=== PATIENT | male | born 1940 | race Caucasian/White ===

== ENCOUNTER 2016-10-22 05:36 | Observation (INO) | payer BC, OTHER ==
[2016-10-10 15:21] VITALS: BMI 32.0
--- NOTE | 2016-10-10 15:42 | PAT Medication Instructions ---
Service Date Oct 10, 2016. Current Home Medication List Albuterol (Proair Hfa), 2 PUFFS INH Q4H PRN for SOB/Wheezing Amlodipine Besylate (Amlodipine Besylate), 5 MG PO BID Aspirin (Aspirin Tab-Chewable *), 81 MG PO HS Atorvastatin (Atorvastatin Calcium), 10 MG PO QAM B-Complex W/ Folic Acid (Super B Complex Maxi), 1 TAB PO QAM Clopidogrel (Plavix), 75 MG PO QPM Enalapril Maleate (Enalapril Maleate), 2.5 MG PO DAILY Gabapentin (Neurontin), 100 MG PO HS Insulin Glargine (Lantus Solostar Pen), 35 UNITS SC HS Isosorbide Mononitrate Ext Rel (Imdur Ext Rel), 60 MG PO QAM Metformin Hcl (Glucophage), 1,000 MG PO BIDM Metoprolol Tartrate (Lopressor) (Lopressor), 150 MG PO BID Nitroglycerin (Nitro-Dur 0.8 Mg/Hr), 1 PATCH TD 12-14HRS DAILY Nitroglycerin (Nitrostat), 0.4 MG SL PRN PRN for Chest Pain Luning-3 Fatty Acids (Fish Oil), 1,000 MG PO QAM Pantoprazole (Protonix), 40 MG PO QAM Probiotic Product (Probiotic), 1 CAP PO QPM Medication Instructions For Your Scheduled Surgery Clopidogrel (Plavix), 75 MG PO QPM (check with surgeon and prescribing physician for instructions) Aspirin (Aspirin Tab-Chewable *), 81 MG PO HS (check with surgeon and prescribing physician for instructions) Nitroglycerin (Nitro-Dur 0.8 Mg/Hr), 1 PATCH TD 12-14HRS DAILY (continue as directed/usual) Nitroglycerin (Nitrostat), 0.4 MG SL PRN PRN for Chest Pain (if needed) - Hold the following medications 2 weeks prior to surgery: Luning-3 Fatty Acids (Fish Oil), 1,000 MG PO QAM - Hold the following medications 48 hours prior to surgery: Metformin Hcl (Glucophage), 1,000 MG PO BID - Hold the following medications the morning of surgery: Enalapril Maleate (Enalapril Maleate), 2.5 MG PO DAILY B-Complex W/ Folic Acid (Super B Complex Maxi), 1 TAB PO QAM - Take the following medications the morning of surgery with a sip of water: Pantoprazole (Protonix), 40 MG PO QAM Metoprolol Tartrate (Lopressor) (Lopressor), 150 MG PO BID Isosorbide Mononitrate Ext Rel (Imdur Ext Rel), 60 MG PO QAM Atorvastatin (Atorvastatin Calcium), 10 MG PO QAM Amlodipine Besylate (Amlodipine Besylate), 5 MG PO BID Albuterol (Proair Hfa), 2 PUFFS INH Q4H PRN for SOB/Wheezing (bring with you to hospital on day of surgery) - Take the following medications as scheduled the night before surgery: Probiotic Product (Probiotic), 1 CAP PO QPM Metoprolol Tartrate (Lopressor) (Lopressor), 150 MG PO BID Insulin Glargine (Lantus Solostar Pen), 35 UNITS SC HS Gabapentin (Neurontin), 100 MG PO HS Amlodipine Besylate (Amlodipine Besylate), 5 MG PO BID Albuterol (Proair Hfa), 2 PUFFS INH Q4H PRN for SOB/Wheezing If you have any questions please call us at [phone] or [phone] ( Alexia) or [phone]
[2016-10-22] VITALS (13 sets, daily range): BP systolic 94–135; BP diastolic 47–69; PULSE 58–69; TEMP 36.4–36.8; O2SAT 90–96; Ht 160 cm; Wt 82.7 kg
[~2016-10-22] VITALS: Ht 160 cm; Wt 82.7 kg
[~2016-10-22 05:36] MED LIST: ALBU1AER9 INH; ASPCH81 PO; B-CO-25 PO; CLOP1TAB15 PO; GABA-112 PO; INSUINJ4 SC; ISOS60TA25 PO; LPT10 PO; METF-384 PO; METO100T14 PO; MISCCAP80 PO; NRV5 PO; NTRGSL4 SL; OMEGCAP2 PO; PANT40TA PO; VST5 PO; [UNRECOGNIZED DRUG - CODE] TD
[2016-10-22] MEDS ORDERED: LACTATED RINGER'S 1000ML 1,000 ML IV SCH (06:00)
[2016-10-22] MEDS ORDERED: ONDANSETRON INJ 2 MG/ML 2 ML VIAL ONE (06:34)
[2016-10-22] MEDS ORDERED: LIDOCAINE HCL 2% 2 ML VIAL (20MG/ML) ONE (06:34)
[2016-10-22] MEDS ORDERED: GLYCOPYRROLATE INJ 0.2 MG/ML VIAL ONE (06:34)
[2016-10-22] MEDS ORDERED: DEXAMETHASONE SOD INJ 4 MG/ML VIAL ONE (06:34)
[2016-10-22] MEDS ORDERED: NEOSTIGMINE METHYLSULFATE 5 MG/5 ML SYR ONE (06:34)
[2016-10-22] MEDS ORDERED: PROPOFOL IV EMULSION 10 MG/ML 20 ML VIAL IV ONE (06:34)
--- NOTE | 2016-10-22 06:34 | History & Physical Bridge Note ---
H&P Re-Evaluation Bridge Note: I have examined the patient, reviewed the History & Physical and in the interval since the performance of the History & Physical I have noted the following changes of clinical significance: No changes noted family at bedside, stopped plavix 5 days ago
[2016-10-22] MEDS ORDERED: FENTANYL CITRATE INJ 50 MCG/1 ML 2 ML VIAL ONE ×2 (06:35→09:15)
[2016-10-22] MEDS ORDERED: MIDAZOLAM HCL 1 MG/ML 2ML VIAL ONE (06:35)
[2016-10-22] MEDS ORDERED: CEFOXITIN SOD 1 GM VIAL ONE (07:26)
[2016-10-22] MEDS ORDERED: EpHEDrine SULFATE 50MG/5ML SYR ONE (07:39)
[2016-10-22] MEDS ORDERED: KETOROLAC TROMETHAMINE 30 MG/ML VIAL ONE (08:37)
[2016-10-22] MEDS ORDERED: CONRAY 60% 50 ML VIAL INSTIL ONE (08:39)
[2016-10-22] MEDS ORDERED: LIDOCAINE/EPINEPHRINE 1% 20 ML VIAL INJ ONE (08:39)
--- NOTE | 2016-10-22 08:41 | DIAGNOSTIC IMAGING REPORT ---
CHOLANGIOGRAM O.R. CLINICAL HISTORY: Gallstones. Cholecystectomy. COMPARISON STUDY: Biliary ultrasound dated 10/01/2016 FLUOROSCOPY TIME: 3 seconds. FINDINGS: 3 intraoperative fluoroscopic spot images are provided for interpretation. No common bile duct filling defects are visualized. There is free flow into the duodenum. IMPRESSION: No evidence of retained calculi. Electronically signed by: Jesus Figueroa M.D. 10/22/2016 8:39 AM Dictated Date/Time: 10/22/2016 8:38 AM
--- NOTE | 2016-10-22 08:56 | [facility] Post Operative Brief Note ---
Immediate Operative Summary Operative Date Oct 22, 2016. Pre-Operative Diagnosis Cholelithiasis Post-Operative Diagnosis Cholelithiasis macronodular liver, likely cirrhosis Procedure(s) Performed Laparoscopic Cholecystectomy with Cholangiogram with trucut biopsy Surgeon Dr. Alex Saleem Automotive Glass Technician Surgeon(s) none Estimated Blood Loss 10 ml Findings as preop and macronodular liver(pictures taken) Specimens Permanent A. Gallbladder B. Liver Biopsy Right Lower Liver Microbiology 1. Gallbladder Contents Drains 19 lacey per stab
[2016-10-22] MEDS ORDERED: EpHEDrine SULFATE INJ 50 MG/ML AMP IV PRN (09:00)
[2016-10-22] MEDS ORDERED: NITROGLYCERIN 0.4 MG SL PER TAB CHARGE SL PRN (09:00)
[2016-10-22] MEDS ORDERED: ATROPINE SULFATE 0.1 MG/ML 5ML SYR IV PRN (09:00)
[2016-10-22] MEDS ORDERED: GLUCOSE 40% GEL 15 GM TUBE PO PRN (09:00)
[2016-10-22] MEDS ORDERED: ALBUTEROL HFA 8 GM INHALER INH PRN (09:00)
[2016-10-22] MEDS ORDERED: LABETALOL HCL IV 5 MG/ML 20ML IV PRN (09:00)
[2016-10-22] MEDS ORDERED: MEPERIDINE HCL 25 MG/ML CARP IV PRN (09:00)
[2016-10-22] MEDS ORDERED: FENTANYL CITRATE INJ 50 MCG/1 ML 2 ML VIAL IV PRN (09:00)
[2016-10-22] MEDS ORDERED: HYDROmorphone INJ 1 MG/ML SYR IV PRN (09:00)
[2016-10-22] MEDS ORDERED: GLUCOSE 10 TABS/TUBE PO PRN (09:00)
[2016-10-22] MEDS ORDERED: GLUCAGON FOR INJ 1 MG VIAL SQ PRN (09:00)
[2016-10-22] MEDS ORDERED: OXYCODONE/ACETAMINOPHEN 5-325 TAB PO PRN (09:00)
[2016-10-22] MEDS ORDERED: DEXTROSE 50% 50 ML SYR IV PRN (09:00)
[2016-10-22] MEDS ORDERED: ONDANSETRON INJ 2 MG/ML 2 ML VIAL IV PRN ×2 (09:00)
--- NOTE | 2016-10-22 10:10 | Medical Student: [facility] ---
Immediate Operative Summary Operative Date Oct 22, 2016. Pre-Operative Diagnosis Cholelithiasis Post-Operative Diagnosis Cholelithiasis, cirrhosis of the liver Procedure(s) Performed Laparoscopic cholecystectomy Liver biopsy Surgeon Dr. Saleem Nutrition Specialist Surgeon(s) None Estimated Blood Loss 10 mL Findings Cirrhotic appearing liver, many gallstones of varying sizes in the gall bladder , purulent fluid within gallbladder. Otherwise normal abdominal anatomy was seen. Specimens Gallbladder Liver biopsy Complication(s) puncture of gallbladder and spillage of a portion of gallstones Disposition Recovery Room / PACU
--- NOTE | 2016-10-22 10:44 | OPERATIVE REPORT ---
DATE OF OPERATION: 10/22/2016 PREOPERATIVE DIAGNOSIS: Chronic cholecystitis, cholelithiasis. POSTOPERATIVE DIAGNOSIS: Same with macronodular liver likely cirrhosis. PROCEDURE: Laparoscopic cholecystectomy, intraoperative cholangiogram, Marcelo-Cut biopsy right lobe of the liver. SURGEON: Dr. Saleem. OPERATION AND FINDINGS: SUMMARY: The patient was brought into the operating room theater. The abdomen was prepped with Betadine solution and properly draped. We made a small incision supraumbilically enough to place a Veress needle followed by CO2 followed by 5 mm trocar. Point of entry inspected and no injury identified. We held the intra-abdominal pressure due to his cardiac problem between 10 and 11 mmHg. This was sufficient to elevate his abdominal wall enough that we could create a pneumoperitoneum to proceed with the surgery. Under direct visualization, I placed a 5 mm epigastric with preemptive local analgesia 1% Xylocaine with epinephrine and placed 2 subcostal ports in a similar fashion. We identified we could see that the left lobe of the liver was quite macronodular. I took an x-ray. The omentum was draped over the right lobe of the liver. We placed the patient in reverse Trendelenburg position and rotated to the left. At this point, we elevated the omentum from the liver. I was able to identify the gallbladder was thick walled but not acutely inflamed. We did place it under traction elevating it up. It was quite difficult due to the structure of the liver to get exposure initially down the vicki hepatis which we did eventually just migrating done shortly choking up on the gallbladder. Once we got into the point of what I felt was the triangle of Calot area or the neck of the gallbladder we dissected out mostly bluntly and we were able to use the sucker and identify the gallbladder going towards the cystic duct area. We were able to identify the cystic duct and I used a right angle clamp to get around it as it came out of the gallbladder. We clipped it proximally. A #4 ureteral catheter transversed the abdominal wall and an Angiocath was positioned in the cystic duct. Serial x-rays were taken which showed free flow into the duodenum. No obstruction. At this point, we took the cholangiocath out and clipped the cystic duct twice. To make it more securely I choked up on it a little bit more and placed another clip which was secure. The gallbladder was then removed in the antegrade fashion, first identifying the cystic artery and doubly clipped it proximally. We tried to leave as much of the posterior peritoneum intact to avoid getting into the liver which as stated appeared to be micronodular and mostly cirrhotic. I did not see any true evidence of portal hypertension. Leaving the posterior aspect of the liver we were able then to maneuver the gallbladder in an antegrade fashion. Small opening in the gallbladder. Some stones came out that we would retrieve. At this point, once the gallbladder was freed completely from the liver bed, it was placed in an Endopouch and actually I converted the 5 mm to an 11 mm trocar once we noticed that the stones come out and I required a larger grasper to retrieve them. The gallbladder was placed in an Endopouch and taken out intact through the epigastric port. Cultures were taken. The subhepatic area was then checked for hemostasis and appeared satisfactory. We cauterized some minor bleeding along the gallbladder fossa, retrieved all the stones. I elected to drain this with a Rachid drain. Prior to doing that, I felt we needed to get a Marcelo-Cut biopsy of the right lobar of the liver which we did without any problem and had a good specimen. The area of puncture the right lobe was cauterized. No bleeding appreciated. A 19 Rachid drain was then brought up on the field and placed subhepatically and taken out lateral to the 5 mm trocar site, attached to skin edges with 2-0 silk. Prior to taking out the individual trocars, I placed the camera in subcostal port to visualize the umbilical area. There were no adhesions to the anterior abdominal wall there. All the individual trocars removed, last the umbilical trocar. Fascial stitch 0 Vicryl was used for the epigastric area fascial [id number], the other ones were Monocryl. Steri-Strips applied. The procedure was tolerated well by the patient. Estimated blood loss approximately 10 mL. The patient was taken to recovery room in good condition. I attest to the content of the Intraoperative Record and any orders documented therein. Any exceptio ns are noted below.
--- NOTE | 2016-10-22 11:48 | Anesthesiology Progress Note ---
Anesthesia Post Op Note Date & Time Oct 22, 2016 at 11:48 Vital Signs Pain Intensity: 3 Vital Signs Past 12 Hours Date Time Temp Pulse Resp B/P Pulse Ox O2 Delivery O2 Flow Rate FiO2 10/22/16 11:22 36.5 61 16 103/47 90 Nasal Cannula 2.5 10/22/16 10:30 61 16 101/53 10/22/16 09:55 62 15 107/48 97 Nasal Cannula 2 10/22/16 09:45 36.9 60 15 105/47 95 Nasal Cannula 2 10/22/16 09:35 60 14 108/58 93 Nasal Cannula 2 10/22/16 09:25 58 12 123/62 97 Mask 10 10/22/16 09:15 61 21 127/73 96 Mask 10 10/22/16 09:07 36.1 64 20 131/68 95 Mask 10 10/22/16 06:03 36.4 58 20 135/69 93 Room Air Notes Mental Status: alert / awake / arousable, participated in evaluation Pt Amnestic to Procedure: Yes Nausea / Vomiting: adequately controlled Pain: adequately controlled Airway Patency, RR, SpO2: stable & adequate BP & HR: stable & adequate Hydration State: stable & adequate Anesthetic Complications: no major complications apparent
[2016-10-22] MEDS: SODIUM CHLORIDE 0.9% 1000ML 1,000 ML IV SCH ×2 (11:54→21:24)
[2016-10-22] MEDS: MoRPHine SULFATE 2 MG/ML CARP IV PRN ×2 (11:56→13:55)
[2016-10-22] MEDS: INSULIN ASPART 100 UNITS/ML 3 ML PEN SC SCH ×3 (14:06→21:14)
--- NOTE | 2016-10-22 15:04 | Cardiology Consultation ---
Cardiology Consultation Date of Consultation: Oct 22, 2016 History of Present Illness Lewis Hernandez is a 76 year old male seenc in cardiology consultation per the request of Dr Saleem for post operative cardiology care. The patient recently been seen by Luis PEACOCK of our practice in preoperative cardiology consultation on 10/11/16. He has a complex history of coronary heart disease as delineated below with a long-standing history of [place] cardiovascular Society class III angina for which he has been on medication therapy. He had a preoperative pharmacologic nuclear stress earlier this month which revealed a fixed anterior wall motion abnormality with no superimposed ischemia and normal LVEF. The patient has a history of chronic cholecystitis, cholelithiasis for which she underwent elective laparoscopic cholecystectomy with intraoperative cholangiogram today. Past imaging studies are also concerning for possible fatty infiltration of the liver. Due to concerns of possible underlying cirrhosis, he underwent a liver biopsy today the same setting. The patient was seen postoperatively in room 358-1. His daughter was accompanying him at the time and he was resting comfortably his pain was adequately controlled. He denied any chest discomfort or shortness of breath. History PAST MEDICAL HISTORY: 1. Multivessel atherosclerotic coronary artery disease. 2. November 2005 cardiac catheterization demonstrating multivessel coronary artery disease with severely calcified coronaries, serial LAD stenoses s/p angioplasty x 3, 90% large first OM stenosis, 50% proximal LPL stenosis, and a total 100% mid right coronary occlusion with the RPL and PDA branches filling via [id number] collaterals. LVEF was 55% without MR or aortic gradient. 3. Catheterization complicated by balloon rupture and associated ST segment elevation. 4. Hypertension 5. Hyperlipidemia 6. History of tobacco abuse. 7. GERD. 8. Gout 9. Rosacea. PAST SURGICAL HISTORY: 1. Tonsillectomy 2. Dental surgery 3. Bilateral hip replacement 4. Laparoscopic cholecystectomy with liver biopsy today 10/22/16 FAMILY HISTORY: Father passed with myocardial infarction in his 80s. Mother had a stroke and had dementia SOCIAL HISTORY: He is a reformed smoker having smoked one pack per day for 20 years. He is to daughters, Mis and Rosi. He has been since 2011 and lives alone. Review Of Systems See above for pertinent positives & negatives. A total of 10 systems reviewed and were otherwise negative. Allergies Coded Allergies: Amoxicillin (Verified Allergy, Severe, swelling of lips and throat, shortness of breath, 10/22/16) Sulfa Antibiotics (Verified Allergy, Intermediate, HIVES, 10/22/16) Adhesives (Verified Allergy, Unknown, rash/skin irritation, 10/22/16) Medications Reported Home Medications Medications Dose Route/Sig Max Daily Dose Days Date Category Dose Instructions Neurontin (Gabapentin) 100 Mg Cap 100 Mg PO HS 10/01/16 Reported Super B Complex Maxi (B-Complex W/ Folic Acid) 1 Tab Tab 1 Tab PO QAM 10/01/16 Reported Probiotic (Probiotic Product) 1 Cap Cap 1 Cap PO QPM 10/01/16 Reported Atorvastatin Calcium (Atorvastatin) 10 Mg Tab 10 Mg PO QAM 30 09/22/15 Rx Enalapril Maleate 5 Mg Tab 2.5 Mg PO DAILY 30 09/22/15 Rx Amlodipine Besylate 5 Mg Tab 5 Mg PO BID 60 09/22/15 Rx Imdur Ext Rel (Isosorbide Mononitrate) 60 Mg Ertab 60 Mg PO QAM 09/20/15 Reported Nitrostat (Nitroglycerin) 0.4 Mg/1 Tab Subl 0.4 Mg SL PRN PRN 30 01/13/14 Rx Proair Hfa (Albuterol) Aers 2 Puffs INH Q4H PRN 01/11/14 Reported Fish Oil (Colstrip-3 Fatty Acids) 1 Cap Cap 1,000 Mg PO QAM 05/29/13 Reported Lantus Solostar Pen (Insulin Glargine) 100 Unit/ Inj 35 Units SC HS 05/29/13 Reported TAKE THIS ONLY IF BSG IS > 140. Glucophage (Metformin Hcl) 1,000 Mg Tab 1,000 Mg PO BIDM 05/29/13 Reported TAKE WITH AM AND EVENING MEALS. Nitro-Dur 0.8 Mg/Hr (Nitroglycerin) 0.8 Mg/ Dis 1 Patch TD 12-14HRS DAILY 12/01/12 Reported Plavix (Clopidogrel Bisulfate) 75 Mg Tab 75 Mg PO QPM 05/31/11 Reported Protonix (Pantoprazole Sodium) 40 Mg Tab 40 Mg PO QAM 09/04/07 Reported Lopressor (Metoprolol Tartrate) 100 Mg Tab 150 Mg PO BID 09/04/07 Reported Aspirin Tab-Chewable * (Aspirin) 81 Mg Chew 81 Mg PO HS 09/04/07 Reported Physical Exam Vital Signs (Last 8hrs): Last 8 Hrs Date Time Temp Pulse Resp B/P Pulse Ox O2 Delivery O2 Flow Rate FiO2 10/22/16 14:53 36.7 69 18 116/61 93 Nasal Cannula 2.0 10/22/16 14:23 96 Nasal Cannula 4.0 10/22/16 13:00 36.8 67 18 108/59 90 Nasal Cannula 2.0 10/22/16 12:09 61 16 108/49 90 2.0 10/22/16 11:22 36.5 61 16 103/47 90 Nasal Cannula 2.5 10/22/16 10:30 61 16 101/53 10/22/16 10:05 93 Nasal Cannula 3.0 10/22/16 10:00 93 Nasal Cannula 3.0 10/22/16 10:00 36.4 58 16 115/55 93 Nasal Cannula 3.0 10/22/16 09:55 62 15 107/48 97 Nasal Cannula 2 10/22/16 09:45 36.9 60 15 105/47 95 Nasal Cannula 2 10/22/16 09:35 60 14 108/58 93 Nasal Cannula 2 10/22/16 09:25 58 12 123/62 97 Mask 10 10/22/16 09:15 61 21 127/73 96 Mask 10 10/22/16 09:07 36.1 64 20 131/68 95 Mask 10 General Appearance: Alert and Oriented x3. NAD. Head: Normocephalic Atraumatic. Eyes: PERRLA, EOMI, conjunctiva and sclera clear Neck: Supple. No carotid bruits noted. No JVD. No HJD. Respiratory: Breath sounds clear to auscultation bilaterally. No w/r/r. Cardiovascular: Reg rate and rhythm. S1 and S2 noted. No murmurs, rubs, gallops. PMI non displace. Abdomen: Incision dressed, not removed. Extremities: No edema, no clubbing or cyanosis. distal pulses 2/4 bilaterally. Neuro: No focal deficits. Psychiatric: Normal affect. Data Last 24 Hours Test 10/22/16 05:55 10/22/16 09:11 10/22/16 11:04 10/22/16 11:47 Bedside Glucose 160 mg/dl 209 mg/dl 193 mg/dl Recent preoperative nuclear stress test as summarized above Assessment & Plan Impression: 76-year-old male 1. Postop elective laparoscopic cholecystectomy with intraoperative liver biopsy performed 10/22/16 2. History of chronic coronary heart disease, chronic stable exertional angina for which he is on aggressive medical therapy Plan: Patient is asymptomatic. He has a history of chronic left bundle branch block given his lack of symptoms , I think the diagnostic yield of a postoperative EKG is low and therefore we' ll follow him clinically. Continue his chronic cardiac medications, with the exception of clopidogrel which is on hold. Basic metabolic panel and CBC will be drawn tomorrow, and based on how he does, I plan to discuss timing of starting back clopidogrel with general surgery.
[2016-10-22] MEDS ORDERED: IV FLUIDS COMPLETED PRN (15:30)
[2016-10-22] MEDS ORDERED: NITROGLYCERIN 0.4 MG/HR PATCH EXT SCH (19:00)
[2016-10-22] MEDS ORDERED: NURSING VERBAL MED ORDER ONE (19:30)
[2016-10-22] MEDS ORDERED: GABAPENTIN 100 MG CAP PO SCH (21:00)
[2016-10-22] MEDS ORDERED: ASPIRIN 81 MG ECTAB PO SCH (21:00)
[2016-10-22] MEDS: AMLODIPINE BESYLATE 5 MG TAB PO SCH (21:18)
[2016-10-22] MEDS: METOPROLOL TARTRATE 100 MG TAB PO SCH (21:18)
[2016-10-22] MEDS: OXYCODONE/ACETAMINOPHEN 5-325 TAB PO PRN (21:20)
[2016-10-23] VITALS (8 sets, daily range): BP systolic 111–122; BP diastolic 59–60; PULSE 60–64; TEMP 36.8; O2SAT 87–95
[2016-10-23] MEDS: OXYCODONE/ACETAMINOPHEN 5-325 TAB PO PRN (02:17)
[2016-10-23 06:59] LABS: BASO % 0.1 %; BASO ABS # 0.01 K/uL (0-0.2); COMPLETE YES; EOS % 0.4 %; HEMATOCRIT 36.6 % (42-52); IG% 0.3 %; LYMPH % 5.9 %; LYMPH ABS # 0.98 K/uL (1.2-3.4); MEAN CORPUSCULAR HEMOGLOBIN 31.6 pg (25-34); MEAN CORPUSCULAR HGB CONC 34.7 g/dl (32-36); MEAN PLATELET VOLUME 12.4 fL (7.4-10.4); NEUT % 86.3 %; PLATELET COUNT 158 K/uL (130-400); RED BLOOD COUNT 4.02 M/uL (4.7-6.1)
--- NOTE | 2016-10-23 07:19 | Medical Student: [facility] ---
Med Student Progress Note Date of Service Oct 23, 2016. Subjective Pt evaluation today including: conversation w/ patient, physical exam, chart review, lab review PO Intake: Has been eating and drinking regularly Voiding: no voiding problems, no incontinence Lewis feels good today. He denies any chills, sweats, nausea or vomiting. He says he has been eating regularly without any problems, but has not yet had a bowel movement and has not been passing gas. His only discomfort was over the sutures placed medial to the drain, he describes it as feeling "tender still". Otherwise he has no complaints at this time. Review of Systems Constitutional: No chills, No fever, No problem reported, No sweats Eyes: No problem reported ENT: No problem reported Respiratory: No cough, No problem reported, No shortness of breath Cardiac: No problem reported Abdomen: + pain (mild tenderness over suture mentioned prior), + see HPI, No constipation, No diarrhea, No nausea, No vomiting Musculoskeletal: No problem reported Male : No problem reported Objective Vital Signs Date Time Temp Pulse Resp B/P Pulse Ox O2 Delivery O2 Flow Rate FiO2 10/23/16 03:34 95 Nasal Cannula 2.0 10/23/16 03:30 36.8 64 18 111/59 87 Room Air 10/23/16 02:18 92 Room Air 10/23/16 02:16 92 Room Air 10/22/16 23:30 Nasal Cannula 4.0 10/22/16 23:09 69 132/57 10/22/16 23:05 36.7 67 16 94/52 92 Nasal Cannula 4.0 10/22/16 21:22 62 123/62 10/22/16 19:20 36.4 63 18 119/60 92 Nasal Cannula 4.0 10/22/16 15:30 Nasal Cannula 4.0 10/22/16 14:53 36.7 69 18 116/61 93 Nasal Cannula 2.0 10/22/16 14:23 96 Nasal Cannula 4.0 10/22/16 13:00 36.8 67 18 108/59 90 Nasal Cannula 2.0 10/22/16 12:09 61 16 108/49 90 2.0 10/22/16 11:22 36.5 61 16 103/47 90 Nasal Cannula 2.5 10/22/16 10:30 61 16 101/53 10/22/16 10:05 93 Nasal Cannula 3.0 10/22/16 10:00 93 Nasal Cannula 3.0 10/22/16 10:00 36.4 58 16 115/55 93 Nasal Cannula 3.0 10/22/16 09:55 62 15 107/48 97 Nasal Cannula 2 10/22/16 09:45 36.9 60 15 105/47 95 Nasal Cannula 2 10/22/16 09:35 60 14 108/58 93 Nasal Cannula 2 10/22/16 09:25 58 12 123/62 97 Mask 10 10/22/16 09:15 61 21 127/73 96 Mask 10 10/22/16 09:07 36.1 64 20 131/68 95 Mask 10 Physical Exam General Appearance: WD/WN, no apparent distress ENT: hearing grossly normal Neck: no JVD, trachea midline Respiratory/Chest: chest non-tender, lungs clear, normal breath sounds, no respiratory distress, no accessory muscle use Cardiovascular: regular rate, rhythm, no gallop, no JVD, no murmur Abdomen: normal bowel sounds, non tender, no organomegaly, no pulsatile mass, + distended (Mild distension and firmness) Extremities: no pedal edema, no calf tenderness Neurologic/Psychiatric: alert, normal mood/affect, oriented x 3 Comments: The supraumbilical incision is showing some puckering of the skin and some erythema around the edges of the approximated tissues, but there is no extension of erythema beyond that. All 4 incisions appear to be healing well: there is no discharge, minimal erythema, mild warmth to the sites, minimal pain , and all sutures appear to be intact still. All the incisions appear to be about the same size as yesterday (each about 1cm in length). Steri strips are still in place on all incisions except the one containing the drain. The incision with the drain is covered with bandaging and had some bleeding present on the bandage, but no active bleeding seen. The drain has removed approximately 120 mL of fluid. Laboratory Results Last 24 Hours Test 10/22/16 09:11 10/22/16 11:47 10/22/16 16:39 10/22/16 20:22 Bedside Glucose 209 mg/dl 193 mg/dl 218 mg/dl 224 mg/dl Test 10/23/16 06:21 Assessment and Plan Assessment and Plan: Assessment: Post-op day 1 from laparoscopic cholecystectomy: Lewis appears to be recovering well with no major complaints at this time. He has been eating and drinking regularly without concerns. He has not had bowel activity yet however. The incisions are healing well with no signs of infection. Plan: Continue to document drainage from wound. Consider removing drain later this evening if no more draining occurs. If bowel activity increases, possibly send home today. Continue to monitor vitals for signs of infection or bleeding (temp and BP, most notably). Continue with regular diet and encourage ambulation to prevent DVT. If patient is unwilling or unable to ambulate consider DVT prophylaxis such as anticoagulation or SCD's. Await results on liver biopsy from pathology. Continued [facility] stay due to: voiding difficulties Discharge planning: home
[2016-10-23] MEDS ORDERED: OXYC-57 PO (07:21)
[2016-10-23] MEDS ORDERED: CIPR1TAB10 PO (07:21)
--- NOTE | 2016-10-23 07:23 | Discharge Instructions ---
Discharge Instructions Admission Reason for Admission: Cholelithiasis Discharge Discharge Diagnosis / Problem: laparoscopic cholecystectomy Discharge Goals Goal(s): Decrease discomfort Activity Recommendations Activity Limitations: per Instructions/Follow-up section Lifting Limitations: no more than 10 pounds Shower/Bathe: no limitations (may shower today) Driving or Machine Use: resume 3 days after discharge . Instructions / Follow-Up Instructions / Follow-Up Dr. Saleem in 1 week, call [phone] if you do not already have an appt Current Hospital Diet Patient's current hospital diet: Diabetes Type 2 Diet Discharge Diet Recommended Diet: Regular Diet Procedures Procedures Performed: Laparoscopic Cholecystectomy with Cholangiogram with trucut biopsy Pending Studies Studies pending at discharge: no Laboratory Results Hemoglobin A1c Test 09/30/16 13:28 Range/Units Estimated Average Glucose 131 mg/dl Hemoglobin A1c 6.2 H 4.5-5.6 % Lipid Panel Test 09/30/16 13:28 Range/Units Triglycerides Level 211 H 0-150 mg/dl Cholesterol Level 157 0-200 mg/dl HDL Cholesterol 43 mg/dl Cholesterol/HDL Ratio 3.7 LDL Cholesterol, Calculated 72 mg/dl Medical Emergencies . Who to Call and When: Medical Emergencies: If at any time you feel your situation is an emergency, please call 911 immediately. . Non-Emergent Contact Non-Emergency issues call your: Surgeon Call Non-Emergent contact if: you have a fever, temperature is above 101.5, your pain is worsening, wound has increased redness, wound has increased pain . "Provider Documentation" section prepared by Noel Hawthorne. VTE Core Measure Inpt VTE Proph given/why not?: SCD's
[2016-10-23 07:28] LABS: BUN/CREATININE RATIO 10.7 (10-20); CALCIUM 8.6 mg/dl (8.5-10.1); CREATININE 1.3 mg/dl (0.60-1.40); POTASSIUM 4.6 mmol/L (3.5-5.1)
--- NOTE | 2016-10-23 08:26 | SURGERY PROGRESS NOTE ---
DATE: 10/23/2016 Lewis is first postoperative day status post laparoscopic cholecystectomy, intraoperative cholangiogram, Marcelo-Cut biopsy right lobe of the liver. He is comfortable in no acute distress. He had a good night. His last vitals showed a temperature of 36.8, pulse 64, respirations 18, blood pressure 111/59, O2 sats 95 on 2 liters. I\T\O, he had 700 of urine yesterday. The drainage from the Rachid drain is 30 mL overnight is serous, slightly sanguineous, it is nonbilious. His abdomen is softly distended, but he was fully distended preoperatively. Laboratory rosas this morning his white count is 16.60 with a left shift. The chemistries are pending. Yesterday was given 2 grams of Mefoxin prior to cholecystectomy with his white count. I think at this point we will probably send him home also on Cipro twice a day, 500 mg for approximately 1 week. The intraoperative findings were discussed with the patient including the possibility that the fatty infiltration of the liver may have progressed to more scarring or cirrhosis. From our point of view, the patient can be discharged today. Instructions were given regarding wound care, diet, activity and meds. Was seen by cardiology yesterday, Dr. Armstrong, but from our point of view can be restarted on Plavix at any time. Instructions will be given regarding wound care, diet, activity, meds and followup.
[2016-10-23] MEDS: SODIUM CHLORIDE 0.9% 1000ML 1,000 ML IV SCH (08:57)
[2016-10-23] MEDS: AMLODIPINE BESYLATE 5 MG TAB PO SCH (08:57)
[2016-10-23] MEDS: METOPROLOL TARTRATE 100 MG TAB PO SCH (08:57)
[2016-10-23] MEDS ORDERED: PANTOprazole SOD 40 MG TAB PO SCH (09:00)
[2016-10-23] MEDS ORDERED: CIPROFLOXACIN 500 MG TAB PO SCH (09:00)
[2016-10-23] MEDS ORDERED: ATORVASTATIN 10 MG TAB PO SCH (09:00)
[2016-10-23] MEDS ORDERED: ENALAPRIL MALEATE 5 MG TAB PO SCH (09:00)
[2016-10-23] MEDS ORDERED: ISOSORBIDE MONONITRATE 60 MG TABCR PO SCH (09:00)
[2016-10-23] MEDS: INSULIN ASPART 100 UNITS/ML 3 ML PEN SC SCH ×2 (09:05→12:00)
[2016-10-23] MEDS ORDERED: CLOPIDOGREL BISULFATE 75 MG TAB PO ONE (10:00)
--- NOTE | 2016-10-23 10:13 | Cardiology Follow-Up ---
Subjective General Date of Service: Oct 23, 2016. Chief Complaint: post op cardiology follow up Pt evaluation today including: conversation w/ patient, physical exam History of Present Illness The patient is a 76 year old male seen in follow up. Patient denies chest pain or shortness of breath. His post op pain is well controlled. He is not on telemetry. Allergies Coded Allergies: Amoxicillin (Verified Allergy, Severe, swelling of lips and throat, shortness of breath, 10/22/16) Sulfa Antibiotics (Verified Allergy, Intermediate, HIVES, 10/22/16) Adhesives (Verified Allergy, Unknown, rash/skin irritation, 10/22/16) Social History Smoking Status: Former Smoker Hx Tobacco Use In Past Year?: No (1987 QUIT - UNKOWN LENGTH OF TIME OR AMOUNT ) Hx Alcohol Use - Type And Amou: Yes (1-2 / MONTH ) Hx Substance Use - Type And Am: No Problem List Medical Problems: (1) Abdominal pain Status: Acute (2) Abnormal EKG Status: Acute (3) Cholelithiasis Status: Acute (4) New left bundle branch block (LBBB) Status: Acute (5) Pancreatitis Status: Acute (6) Precordial chest pain Status: Acute Physical Exam Vital Signs Last Vital Signs Documentation Date Time Temp Pulse Resp B/P Pulse Ox O2 Delivery O2 Flow Rate FiO2 10/23/16 08:39 17 94 Nasal Cannula 2.0 10/23/16 07:54 36.8 60 122/60 Physical Exam Constitutional: Level of Distress: NAD Neck: supple Lungs: Auscultation: no wheezing, no rales/crackles Cardiovascular: Heart Auscultation: RRR, no murmurs, no rubs Extremities: no cyanosis, no edema Neurologic: Gait & Station: pertinent finding (there are no focal deficits ) Assessment and Plan Assessment and Plan Impression: 76-year-old male 1. Postop elective laparoscopic cholecystectomy with intraoperative liver biopsy performed 10/22/16 2. History of chronic coronary heart disease, chronic stable exertional angina for which he is on aggressive medical therapy. No anginal symptoms post op yesterday , overnight, or today. 3. Chronic LBBB. Plan: Hgb and BP are stable. Discharge on chronic cardiac medications. Will resume clopidogrel. Pt to call office for routine post op follow up within 1 month. Laboratory Results Last 24 Hours Test 10/22/16 11:47 10/22/16 16:39 10/22/16 20:22 10/23/16 06:21 Bedside Glucose 193 mg/dl 218 mg/dl 224 mg/dl White Blood Count 16.60 K/uL Red Blood Count 4.02 M/uL Hemoglobin 12.7 g/dL Hematocrit 36.6 % Mean Corpuscular Volume 91.0 fL Mean Corpuscular Hemoglobin 31.6 pg Mean Corpuscular Hemoglobin Concent 34.7 g/dl Platelet Count 158 K/uL Mean Platelet Volume 12.4 fL Neutrophils (%) (Auto) 86.3 % Lymphocytes (%) (Auto) 5.9 % Monocytes (%) (Auto) 7.0 % Eosinophils (%) (Auto) 0.4 % Basophils (%) (Auto) 0.1 % Neutrophils # (Auto) 14.34 K/uL Lymphocytes # (Auto) 0.98 K/uL Monocytes # (Auto) 1.16 K/uL Eosinophils # (Auto) 0.06 K/uL Basophils # (Auto) 0.01 K/uL RDW Standard Deviation 42.0 fL RDW Coefficient of Variation 12.7 % Immature Granulocyte % (Auto) 0.3 % Immature Granulocyte # (Auto) 0.05 K/uL Sodium Level 137 mmol/L Potassium Level 4.6 mmol/L Chloride Level 103 mmol/L Carbon Dioxide Level 24 mmol/L Anion Gap 10.0 mmol/L Blood Urea Nitrogen 14 mg/dl Creatinine 1.30 mg/dl Est Creatinine Clear Calc Drug Dose 44.5 ml/min Estimated GFR () 60.6 Estimated GFR (Non- 52.3 BUN/Creatinine Ratio 10.7 Random Glucose 171 mg/dl Calcium Level 8.6 mg/dl Hepatitis C Antibody Screen NEG Test 10/23/16 07:48 Bedside Glucose 154 mg/dl
[2016-10-24] MEDS ORDERED: CLOPIDOGREL BISULFATE 75 MG TAB PO SCH (09:00)
--- NOTE | 2016-10-25 14:08 | DISCHARGE SUMMARY ---
PRIMARY DISCHARGE DIAGNOSIS: 1. Cholelithiasis with chronic cholecystitis. SECONDARY DISCHARGE DIAGNOSES: 1. Coronary artery disease. 2. Chronic left bundle-branch block. 3. Hypertension. 4. Gastroesophageal reflux disease. 5. Gout. 6. Diabetes. PROCEDURE PERFORMED: Laparoscopic cholecystectomy with intraoperative cholangiogram and Marcelo-Cut liver biopsy. CONSULTATIONS: [facility] for routine postoperative followup. HOSPITAL COURSE: The patient is a 76-year-old male with chronic cholecystitis, admitted through same day and taken to the operating room for laparoscopic cholecystectomy. He did have evidence of chronic cholecystitis as well as a nodular liver. Marcelo-Cut biopsy was taken. The procedure was well tolerated. He was transferred to the surgical floor and cardiology was consulted routinely. His Plavix was held preoperatively and we continued to hold that for 24 hours postoperatively. On postoperative day 1, he was tolerating diet and oral analgesics. Rachid drainage was 30 mL, the Rachid drain was therefore removed. His white count was 16,000 and had been elevated slightly as well preoperatively. We started him on some Cipro orally. He remained stable from a cardiac standpoint as well. No additional testing was necessary. He was stable for discharge on postoperative day 1. DISCHARGE INSTRUCTIONS: Discharged home. Follow up with Dr. Saleem in 1 week. Follow up with cardiology in 1 month. DISCHARGE MEDICATIONS: Percocet 1-2 tablets every 4 hours as needed and Cipro 500 mg p.o. b.i.d. x1 week. Resume home medications albuterol inhaler 2 puffs q. 4 hours as needed, Norvasc 5 mg b.i.d., aspirin 81 mg daily, atorvastatin 10 mg daily, Plavix 75 mg daily, enalapril 2.5 mg daily, Neurontin 100 mg at bedtime, Lantus 35 units at bedtime, Glucophage 1000 mg b.i.d., Imdur 60 mg daily, Lopressor 150 mg b.i.d., Nitro-Dur patch 0.8 mg per hour, p.r.n. Nitrostat 0.4 mg, Protonix 40 mg daily, daily supplements, vitamin B complex, fish oil, and probiotic. PATHOLOGY: Final pathology from the gallbladder and Marcelo-Cut liver biopsy are pending at the time of dictation. Culture of the gallbladder showed no growth.
== END 2016-10-23 14:17 | disposition home or self-care (01) ==
LOC: ENRESERVTM → ENRESERVDT → C.ACU 05:36 → C.MSW 08:53
PROVIDERS: ADMIT Surgery; ATTEND Surgery
DX: K80.10 Calculus of gallbladder with chronic cholecystitis without obstruction (principal); E78.5 Hyperlipidemia, unspecified; I10 Essential (primary) hypertension; I25.10 Atherosclerotic heart disease of native coronary artery without angina pectoris; I44.7 Left bundle-branch block, unspecified; K21.9 Gastro-esophageal reflux disease without esophagitis; K74.60 Unspecified cirrhosis of liver; M10.9 Gout, unspecified; Z96.643 Presence of artificial hip joint, bilateral

== ENCOUNTER → 2017-04-10 | Outpatient (CLI) | payer BC ==
[~2017-04-10] MED LIST changes: +CIPR1TAB10 PO; +OXYC-57 PO
[2017-04-10 16:26] LABS: HEMATOCRIT 46.7 % (42-52); MEAN CELL VOLUME 93.4 fL (80-100); MEAN CORPUSCULAR HEMOGLOBIN 31.2 pg (25-34); MEAN CORPUSCULAR HGB CONC 33.4 g/dl (32-36); MEAN PLATELET VOLUME 12.6 fL (7.4-10.4); PLATELET COUNT 172 K/uL (130-400); WHITE BLOOD COUNT 9.04 K/uL (4.8-10.8)
[2017-04-10 16:34] LABS: ALT/SGPT 88 U/L (12-78); BLOOD UREA NITROGEN 17 mg/dl (7-18); BUN/CREATININE RATIO 11.8 (10-20); CALCIUM 9.9 mg/dl (8.5-10.1); CARBON DIOXIDE 29 mmol/L (21-32); CHLORIDE 106 mmol/L (98-107); CHOLESTEROL 135 mg/dl (0-200); GLUCOSE 130 mg/dl (70-99); POTASSIUM 4.6 mmol/L (3.5-5.1); SODIUM 142 mmol/L (136-145)
[2017-04-10 16:37] LABS: ALB/GLOB RATIO 1.1 (0.9-2); ALKALINE PHOSPHATASE 53 U/L (45-117); AST/SGOT 56 U/L (15-37); CHOLESTEROL/HDL RATIO 3.5; HDL CHOLESTEROL 39 mg/dl; LDL CHOLESTEROL CALCULATED 60 mg/dl; TRIGLYCERIDES 182 mg/dl (0-150); VERY LOW DENSITY LIPOPROT CALC 36 mg/dl
[2017-04-11 06:15] LABS: ESTIMATED AVERAGE GLUCOSE 148 mg/dl; HA1C FLAG Normal (Normal)
== END | disposition home or self-care (01) ==
LOC: C.LABBFT 14:58
PROVIDERS: ATTEND Internal Medicine
DX: E11.9 Type 2 diabetes mellitus without complications (principal)

== ENCOUNTER → 2017-10-21 | Outpatient (CLI) | payer BC ==
[~2017-10-21] MED LIST changes: -CIPR1TAB10 PO; -OXYC-57 PO
[2017-10-21 16:48] LABS: HEMOGLOBIN 14.8 g/dL (14.0-18.0); MEAN CORPUSCULAR HEMOGLOBIN 31.3 pg (25-34); MEAN CORPUSCULAR HGB CONC 33.6 g/dl (32-36); MEAN PLATELET VOLUME 12.6 fL (7.4-10.4); PLATELET COUNT 177 K/uL (130-400); RED CELL DISTRIBUTION WIDTH CV 12.9 % (11.5-14.5); RED CELL DISTRIBUTION WIDTH SD 43.9 fL (36.4-46.3); WHITE BLOOD COUNT 8.81 K/uL (4.8-10.8)
[2017-10-21 17:12] LABS: ALBUMIN 3.6 gm/dl (3.4-5.0); ALKALINE PHOSPHATASE 63 U/L (45-117); ALT/SGPT 97 U/L (12-78); AST/SGOT 56 U/L (15-37); BLOOD UREA NITROGEN 14 mg/dl (7-18); CALCIUM 8.6 mg/dl (8.5-10.1); CARBON DIOXIDE 25 mmol/L (21-32); CREATININE 1.21 mg/dl (0.60-1.40); GLUCOSE 137 mg/dl (70-99); POTASSIUM 4.6 mmol/L (3.5-5.1); SODIUM 140 mmol/L (136-145); TOTAL PROTEIN 7.4 gm/dl (6.4-8.2)
[2017-10-21 17:14] LABS: CHOLESTEROL 119 mg/dl (0-200); LDL CHOLESTEROL CALCULATED 44 mg/dl
[2017-10-22 06:01] LABS: HEMOGLOBIN A1C 6.8 % (4.5-5.6)
== END | disposition home or self-care (01) ==
LOC: C.LABBFT 14:35
PROVIDERS: ATTEND Internal Medicine
DX: E11.9 Type 2 diabetes mellitus without complications (principal)

== ENCOUNTER 2021-07-28 08:20 | Inpatient (IN) ==
[2021-07-28] MEDS ORDERED: ALBUT/IPRATROP 3MG/0.5MG NEB 3 ML VIAL NEB ONE (08:42)
--- NOTE | 2021-07-28 08:47 | Emergency Department Note ---
Impression & Plan Pulmonary edema, Hypoxia ED Provider Note Name: BHARGAVI ALVARADO Age: 80 Sex: M Arrives Via: Walk-In Informant: Patient, Daughter ED Provider: Yonis Angel MD Chief Complaint: Shortness of breath Impression: As Per Impressions Above Medical Decision Makin yr old male with history [id number] CAD who had episode chest pain end Sept, then worsening shob since. He has diffuse rhonchi/crackles, moderately dyspneic and is hypoxic on RA. Switched to Oxy mask and then duoneb. Minimal improvement with duoneb while awaiting labs/cxr. Labs OK. CXR consistent with pulmonary edema. No real swelling of legs and BNP not significantly elevated, t gamal without clear other etiology will given dose Lasix and hospitalize for further evaluation/management. This is not consistent with PE and without better response to Duoneb seems less likely COPD than fluid overload at this point, though it may be contributing. Prior Medical Record and Triage/Nursing Notes reviewed by Me Additional history obtained from chart Differentials:Reactive airway disease, pneumonia, pneumothorax, COPD, CHF, infections, cardiac ischemia, pulmonary embolism, musculoskeletal, gastrointestinal, as well as other pathologies. Vital Signs: reviewed and remarkable for hypoxia Interventions: duoneb, lasix 40mg iv Labs:Reviewed and remarkable for no significant abnormalities Imaging:X ray results are stated below per my interpretation: Chest: 1 view: pulmonary edema EKG:Per My Interpretation: Indication Shortness of breath: NSR 72 bpm with LBBB, qtc 457. No Ectopy. No Ischemia. Compared to EKG 06/14/21, no significant changes. Cardiac/Tele Monitoring: Cardiac Monitoring: An Order was placed for continuous cardiac monitoring. The monitor shows a rate of 70 with a normal sinus rhythm. Consults:Dr Yesy WILLARD Hospitalist Plan: Disposition:Hospitalization. Condition: Fair History of Present Illness:80 yr old male arrives for evaluation of shortness of breath. Patient with long history COPD and CAD ([id number]). About a month ago patient started having episodes of chest pain which resolved with SLNTG. Patient since then has been more short of breath and exhausted. This has been gradually worsening the last week. Severely short of breath this morning and unable to ambulate. No meds prior to arrival. Exertion makes worse, rest makes better. Notes mild left frontal headache currently. No chest pain, syncope, fevers, chills, neck pain, back pain, abdominal pain, nausea, vomiting, urinary/bowel symptoms, leg swelling, rashes nor other symptoms. ROS: See above HPI for pertinent positives & negatives. A total of 10 systems reviewed and were otherwise negative. Past Medical History:See Below Past Surgical History:See Below Family History:See Below Social History:See Below Home Medications:See Below Allergies:See Below Vitals:Blood Pressure: 157/70, Pulse 71, RR 28, T 36.5C, O2 83% on RA Physical Exam: GENERAL: Patient is ill appearing and in moderate distress. EYES: No scleral icterus, unremarkable pupils. ENT: Mucous membranes moist, no nasal congestion. NECK: No masses appreciated, nomeningismus, trachea is midline. RESPIRATORY: Dyspnea, Tachypnea. Diffuse rhonchi. Dry cough CARDIOVASCULAR: Regular rate and rhythm.No murmurs, rubs, gallops appreciated. GASTROINTESTINAL: Abdomen soft, non-tender, no peritonitis.Bowel sounds positive.No masses appreciated. BACK: No midline tenderness, no CVA tenderness EXTREMITIES: Normal motion all extremities, no cyanosis, no edema. NEUROLOGIC: Tired appearing, mildly confused, no acute motor or sensory deficits, no focal weakness, cranial nerves grossly intact. SKIN: No rash, no jaundice, no diaphoresis. PSYCH: Appropriate GCS: 15 ED Course: Times/Reassessments: minimal improvement with duoneb, though sats much improved with O2 Yonis Angel MD Past Med/Surg History Medical History Cholelithiasis Hypertension Unstable angina (01/12/14) Surgical History History of cholecystectomy History of esophagogastroduodenoscopy History of heart surgery History of hip replacement, total History of shoulder surgery Family History Father Myocardial infarction Heart disease Sister Breast cancer Mother Stroke Family/Other Arthritis Brother Coronary heart disease Denies family history of Ovarian cancer Prostate cancer Colorectal cancer Social History Smoking Status: Current every day smoker Tobacco Type: Cigarettes Age Started Using Tobacco: 11; Age Quit Using Tobacco: 48; packs per day: 0.75; Second Hand Exposure: No; Hx Alcohol Use: No Hx Substance Use: No Preferred Language: Welsh Communication Ability: Effective Visual Impairment: Limited Hearing Ability: Hard of Hearing marital status: Current Living Situation: Family Current Living Situation Comment: lives with oldest daughter 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 many Children do You have: 2 Feels Safe at Home: Yes Childhood Exposure to Second-Hand Smoke: Yes caffeine: Yes (coffee) during the past year weight has: remained stable Dental Care, Regularly: No Physical Activity Frequency: Does not Exercise Seatbelt Use: always Sunscreen Use: No Allergies Allergies Allergy/AdvReac Type Severity Reaction Status Date / Time amoxicillin Allergy Severe swelling Verified 07/28/21 10:29 of lips and throat, shortness of breath Sulfa (Sulfonamide Allergy Intermediate HIVES Verified 07/28/21 10:29 Antibiotics) adhesive Allergy Unknown rash/skin Verified 07/28/21 10:29 irritation Home Meds Home Medications Medication Instructions Recorded Confirmed amlodipine 5 mg tablet 5 mg PO BID tab 06/18/19 07/28/21 aspirin 81 mg chewable tablet 81 mg PO 06/18/19 07/28/21 atorvastatin 10 mg tablet 10 mg PO [facility] 06/18/19 07/28/21 clopidogrel 75 mg tablet 75 mg PO 06/18/19 07/28/21 isosorbide mononitrate 60 mg 60 mg PO [facility] 06/18/19 07/28/21 tablet,extended release 24 hr metoprolol tartrate 100 mg tablet 150 mg PO BID tab 06/18/19 07/28/21 nitroglycerin 0.8 mg/hr 1 patch TD [facility] 06/18/19 07/28/21 transdermal 24 hour patch (Nitro-Dur) omega-3 fatty acids 1,000 mg 1,000 mg PO M 06/18/19 07/28/21 capsule (Fish Oil Concentrate) pantoprazole 40 mg tablet,delayed 40 mg PO [facility] 06/18/19 07/28/21 release Lactobacillus acidophilus 1,000 mmu cells PO 07/28/21 07/28/21 insulin glargine 100 unit/mL (3 45 unit SUBCUT 07/28/21 07/28/21 mL) subcutaneous pen (Lantus Solostar U-100 Insulin) ranolazine 500 mg tablet,extended 500 mg PO BID 07/28/21 07/28/21 release,12 hr vitamin B complex 1 cap PO QAM 07/28/21 07/28/21 Previous Rx's Medication Instructions Recorded albuterol sulfate 90 mcg/actuation 2 puffs INH QID PRN #8.5 gm 03/24/19 aerosol inhaler (ProAir HFA) nitroglycerin 0.4 mg sublingual 0.4 mg SL Q5M PRN #25 tab 11/22/19 tablet (Nitrostat) blood sugar diagnostic (OneTouch #300 ea 08/18/20 Ultra Blue Test Strip) gabapentin 100 mg capsule 100 mg PO HS #90 cap 02/07/21 pen needle, diabetic 31 gauge x #50 ea 03/21/2102/18" (BD Ultra-Fine Short Pen Needle) lancets 30 gauge (OneTouch Delica #300 ea 04/20/21 Lancets) Results & Data (ED) Vital Signs Vital Signs - 24 hr 07/28/21 08:31 07/28/21 08:35 07/28/21 09:00 Temperature 36.5 C Temperature Source Oral Pulse Rate 71 69 Pulse Rate [Right Finger] Respiratory Rate 28 H 22 Respiratory Effort / Characteristics Respiratory Depth Retractive Respiratory Pattern Tachypnea Blood Pressure 157/70 H Blood Pressure Mean 99 Pulse Oximetry 83 L 80 L 93 Oxygen Delivery Method Nasal Cannula Room Air Oxymask Oxygen Flow Rate 4 Sepsis Recent Fever Within 48 Hours No Sepsis New/Unexplained Change in Mental Status N/A Sepsis Action Taken by Nursing No Action Required Oxygen Flow Rate - Titration 4 Pulse Oximetry Post Tiitration 94 07/28/21 09:06 07/28/21 09:08 07/28/21 09:30 Temperature Temperature Source Pulse Rate 70 Pulse Rate [Right Finger] 70 Respiratory Rate 24 22 Respiratory Effort / Characteristics Non-Labored Spontaneous Respiratory Depth Normal Respiratory Pattern Regular Blood Pressure 143/75 H Blood Pressure Mean 97 Pulse Oximetry 93 96 Oxygen Delivery Method Oxymask Aerosol Mask Oxygen Flow Rate 4 Sepsis Recent Fever Within 48 Hours Sepsis New/Unexplained Change in Mental Status Sepsis Action Taken by Nursing Oxygen Flow Rate - Titration Pulse Oximetry Post Tiitration 07/28/21 10:00 07/28/21 10:30 Temperature Temperature Source Pulse Rate 70 77 Pulse Rate [Right Finger] Respiratory Rate 24 24 Respiratory Effort / Characteristics Respiratory Depth Respiratory Pattern Blood Pressure 121/58 L Blood Pressure Mean 79 Pulse Oximetry 95 93 Oxygen Delivery Method Aerosol Mask Oxymask Oxygen Flow Rate 4 Sepsis Recent Fever Within 48 Hours Sepsis New/Unexplained Change in Mental Status Sepsis Action Taken by Nursing Oxygen Flow Rate - Titration Pulse Oximetry Post Tiitration Laboratory Data Result diagrams: 07/28/21 08:53 07/28/21 08:53 Lab Results 07/28/21 07/28/21 07/28/21 Range/Units 08:53 08:53 08:53 WBC 10.22 (4.8-10.8) K/uL RBC 4.44 L (4.7-6.1) M/uL Hgb 13.1 L (14.0-18.0) g/dL Hct 40.4 L (42-52) % MCV 91.0 (80-100) fL MCH 29.5 (25-34) pg MCHC 32.4 (32-36) g/dL RDW Std Deviation 48.9 H (36.4-46.3) fL RDW Coeff of Zully 14.7 H (11.5-14.5) % Plt Count 218 (130-400) K/uL MPV 12.4 H (7.4-10.4) fL Immature Gran % (Auto) 0.2 % Neut % (Auto) 68.2 % Lymph % (Auto) 10.1 % [place] % (Auto) 8.8 % Eos % (Auto) 11.5 % Baso % (Auto) 1.2 % Neut # (Auto) 6.97 H (1.4-6.5) K/uL Lymph # (Auto) 1.03 L (1.2-3.4) K/uL [place] # (Auto) 0.90 H (0.11-0.59) K/uL Eos # (Auto) 1.18 H (0-0.5) K/uL Baso # (Auto) 0.12 (0-0.2) K/uL Immature Gran # (Auto) 0.02 (0.00-0.02) K/uL VBG pH (7.36-7.41) VBG pCO2 (38-50) mmHg VBG pO2 mmHg VBG HCO3 mmol/L VBG O2 Saturation % VBG Base Excess mEq/L Barometric Pressure mm/Hg Sodium 139 (136-145) mmol/L Potassium 4.5 (3.5-5.1) mmol/L Chloride 108 H (98-107) mmol/L Carbon Dioxide 26 (21-32) mmol/L Anion Gap 5.0 (3-11) BUN 17 (7-18) mg/dl Creatinine 1.45 H (0.6-1.4) mg/dl Est Cr Clr Drug Dosing 37.4 ml/min Est GFR ( Amer) 51.6 ml/min Est GFR (Non-Af Amer) 44.5 ml/min BUN/Creatinine Ratio 11.4 (10-20) Glucose 151 H (70-99) mg/dl Lactate (0.4-2.0) mmol/L Calcium 9.0 (8.5-10.1) mg/dl Magnesium 2.1 (1.8-2.4) mg/dl Total Bilirubin 1.0 (0.2-1) mg/dl Direct Bilirubin 0.2 (0-0.2) mg/dl AST 26 (15-37) U/L ALT 26 (12-78) U/L Alkaline Phosphatase 96 (45-117) U/L Troponin I < 0.015 (0-0.045) ng/ml NT-Pro-B Natriuret Pep 644 (0-1800) pg/ml Total Protein 7.9 (6.4-8.2) gm/dl Albumin 3.2 L (3.4-5.0) gm/dl Procalcitonin < 0.05 (0-0.5) ng/ml 07/28/21 07/28/21 Range/Units 08:53 08:54 WBC (4.8-10.8) K/uL RBC (4.7-6.1) M/uL Hgb (14.0-18.0) g/dL Hct (42-52) % MCV (80-100) fL MCH (25-34) pg MCHC (32-36) g/dL RDW Std Deviation (36.4-46.3) fL RDW Coeff of Zully (11.5-14.5) % Plt Count (130-400) K/uL MPV (7.4-10.4) fL Immature Gran % (Auto) % Neut % (Auto) % Lymph % (Auto) % [place] % (Auto) % Eos % (Auto) % Baso % (Auto) % Neut # (Auto) (1.4-6.5) K/uL Lymph # (Auto) (1.2-3.4) K/uL [place] # (Auto) (0.11-0.59) K/uL Eos # (Auto) (0-0.5) K/uL Baso # (Auto) (0-0.2) K/uL Immature Gran # (Auto) (0.00-0.02) K/uL VBG pH 7.32 L (7.36-7.41) VBG pCO2 56 H (38-50) mmHg VBG pO2 45 mmHg VBG HCO3 29 mmol/L VBG O2 Saturation 76.1 % VBG Base Excess 1.4 mEq/L Barometric Pressure 731.5 mm/Hg Sodium (136-145) mmol/L Potassium (3.5-5.1) mmol/L Chloride (98-107) mmol/L Carbon Dioxide (21-32) mmol/L Anion Gap (3-11) BUN (7-18) mg/dl Creatinine (0.6-1.4) mg/dl Est Cr Clr Drug Dosing ml/min Est GFR ( Amer) ml/min Est GFR (Non-Af Amer) ml/min BUN/Creatinine Ratio (10-20) Glucose (70-99) mg/dl Lactate 1.1 (0.4-2.0) mmol/L Calcium (8.5-10.1) mg/dl Magnesium (1.8-2.4) mg/dl Total Bilirubin (0.2-1) mg/dl Direct Bilirubin (0-0.2) mg/dl AST (15-37) U/L ALT (12-78) U/L Alkaline Phosphatase (45-117) U/L Troponin I (0-0.045) ng/ml NT-Pro-B Natriuret Pep (0-1800) pg/ml Total Protein (6.4-8.2) gm/dl Albumin (3.4-5.0) gm/dl Procalcitonin (0-0.5) ng/ml Administered Medications Discontinued Medications Albuterol (Albut/Ipratrop 3mg/0.5mg Neb 3 Ml Vial) 12 ml NEB ONE ONE Stop: 07/28/21 08:43 Last Admin: 07/28/21 09:08 Dose: 12 ml Documented by: [id number] Furosemide (Furosemide 40 Mg/4 Ml Vial) 40 mg IV NOW STA Stop: 07/28/21 10:12 Last Admin: 07/28/21 10:27 Dose: 40 mg Documented by: [id number] Furosemide (Furosemide 40 Mg/4 Ml Vial) 20 mg IV NOW ONE Stop: 07/28/21 14:01 Last Admin: 07/28/21 14:29 Dose: 20 mg Documented by: [id number] Imaging Data Radiologist's Impression: Chest X-Ray 07/28/21 08:42 XR chest 1V portable CLINICAL HISTORY: Shortness of breath. COMPARISON STUDY: Chest radiograph January 29, 2019. FINDINGS: There is no pneumothorax. There are suspected small bilateral pleural effusions. Note is made of cardiomegaly. Interstitial thickening is present. Perihilar and bibasilar opacity is noted. IMPRESSION: Findings consistent with pulmonary edema with small bilateral pleural effusions. Radiographic follow-up to ensure resolution is recommended. ACT 112: Negative or not required by law. Electronically signed by: Adrian Live M.D. 07/28/2021 9:27 AM Discharge Plan Visit Data Chief Complaint: Shortness of Breath/Dyspnea Stated Complaint: SOB ED Provider: Yonis Angel Discharge Problem: Pulmonary edema, Hypoxia Patient Disposition: Admitted As Inpatient Discharge Instructions Interventions: ED Discharge Assessment Last Done: 07/28/21 12:30
[2021-07-28 09:07] LABS: Basophils # (auto) 0.12 K/uL (0-0.2); Basophils % (auto) 1.2 %; Eosinophils # (auto) 1.18 K/uL (0-0.5); Eosinophils % (auto) 11.5 %; Hematocrit (blood only) 40.4 % (42-52); Hemoglobin 13.1 g/dL (14.0-18.0); Immature Granulocytes # (auto) 0.02 K/uL (0.00-0.02); Immature Granulocytes % (auto) 0.2 %; Lymphocytes # (auto) 1.03 K/uL (1.2-3.4); Lymphocytes % (auto) 10.1 %; Mean Corpuscular Hemoglobin 29.5 pg (25-34); Mean Corpuscular Hgb Conc 32.4 g/dL (32-36); Mean Platelet Volume 12.4 fL (7.4-10.4); Monocytes % (auto) 8.8 %; Neutrophils # (auto) 6.97 K/uL (1.4-6.5); Neutrophils % (auto) 68.2 %; Platelet Count 218 K/uL (130-400); RDW Coefficient of Variation 14.7 % (11.5-14.5); RDW Standard Deviation 48.9 fL (36.4-46.3); Red Blood Count 4.44 M/uL (4.7-6.1); White Blood Count 10.22 K/uL (4.8-10.8)
[2021-07-28 09:22] LABS: Alanine Aminotransferase 26 U/L (12-78); Albumin Level 3.2 gm/dl (3.4-5.0); Aspartate Aminotransferase 26 U/L (15-37); BUN Creatinine Ratio 11.4 (10-20); Bilirubin Direct 0.2 mg/dl (0-0.2); Blood Urea Nitrogen 17 mg/dl (7-18); Carbon Dioxide 26 mmol/L (21-32); Chloride 108 mmol/L (98-107); Creatinine Clr Calc Pharmacy 37.4 ml/min; Est GFR (African American) 51.6 ml/min; Est GFR (Non-African American) 44.5 ml/min; Glucose 151 mg/dl (70-99); Magnesium 2.1 mg/dl (1.8-2.4); Potassium 4.5 mmol/L (3.5-5.1); Sodium 139 mmol/L (136-145)
[2021-07-28 09:24] LABS: Base Excess VBG 1.4 mEq/L; Oxygen Saturation VBG 76.1 %; pH VBG 7.32 (7.36-7.41)
[2021-07-28 09:27] LABS: Alkaline Phosphatase 96 U/L (45-117); Total Protein 7.9 gm/dl (6.4-8.2); Troponin I < 0.015 ng/ml (0-0.045)
--- NOTE | 2021-07-28 09:28 | XRay Report ---
XR chest 1V portable CLINICAL HISTORY: Shortness of breath. COMPARISON STUDY: Chest radiograph January 29, 2019. FINDINGS: There is no pneumothorax. There are suspected small bilateral pleural effusions. Note is ma de of cardiomegaly. Interstitial thickening is present. Perihilar and bibasilar opacity is noted. IMPRESSION: Findings consistent with pulmonary edema with small bilateral pleural effusions. Radiogr aphic follow-up to ensure resolution is recommended. ACT 112: Negative or not required by law. Electronically signed by: Adrian Live M.D. 07/28/2021 9:27 AM
[2021-07-28] MEDS ORDERED: FUROSEMIDE 40 MG/4 ML VIAL IV STA (10:11)
[2021-07-28 10:27] LABS: NT Pro B Type Natriuretic Pept 644 pg/ml (0-1800)
[2021-07-28] MEDS ORDERED: ACETAMINOPHEN 325 MG TAB PO PRN (10:32)
--- NOTE | 2021-07-28 11:13 | History & Physical Report ---
Date of Service July 28, 2021 Assessment & Plan (1) SOB (shortness of breath): Plan: 80 yo male with worsening SOB, orthopena. Patient has a negative BNP, however he is obese which could falsely decrease his BNP. will obtain echo will place on diuretics: Received total 60 mg of lasix IV. will closely monitor BMP. will monitor trop May have a component of COPD exacerbation. Rechecked patient at 18:00, patient no longer wheezing but now requiring oxymask. Patient will be placed on a fluter valve and incentive spirometry. will order a CT scan of chest. (2) Hypertension: Plan: will resume BP meds (3) Type 2 diabetes mellitus: Plan: consult glycemic control (4) Hypercholesteremia: Plan: will place on statin (5) Type 2 diabetes mellitus with microalbuminuria, with long-term current use of insulin: Plan: as state above. Plan: DNR: DNI Heparin subq History of Present Illness Chief Complaint: SOB Primary Care Provider: Zoltan Lyn MD 80 yo male with past medical history of COPD, CAD, type 2 diabetes, remote history of myocardial infarction, remote history of smoking, comes into the hospital with: a 2-week history of shortness of breath upon exertion which has been gradually getting worse. Patient reports that now he has been wheezing for the past 24 hours and is now having shortness of breath at rest. This is accompanied by a productive cough and orthopnea. Due to the constant wheezing and SOB at rest, patient comes to the ER. Patient denies fever, chills. Patient tested negative for COVID 19. Patient lives with his daughter who is his care-taker Allergies Allergy/AdvReac Type Severity Reaction Status Date / Time amoxicillin Allergy Severe swelling Verified 07/28/21 10:29 of lips and throat, shortness of breath Sulfa (Sulfonamide Allergy Intermediate HIVES Verified 07/28/21 10:29 Antibiotics) adhesive Allergy Unknown rash/skin Verified 07/28/21 10:29 irritation Home Medications Medication Instructions Recorded Confirmed Type albuterol sulfate 90 mcg/actuation 2 puffs INH QID PRN #8.5 gm 03/24/19 07/28/21 Rx aerosol inhaler (ProAir HFA) amlodipine 5 mg tablet 5 mg PO BID tab 06/18/19 07/28/21 History aspirin 81 mg chewable tablet 81 mg PO HS 06/18/19 07/28/21 History atorvastatin 10 mg tablet 10 mg PO QAM 06/18/19 07/28/21 History clopidogrel 75 mg tablet 75 mg PO HS 06/18/19 07/28/21 History isosorbide mononitrate 60 mg 60 mg PO QAM 06/18/19 07/28/21 History tablet,extended release 24 hr metoprolol tartrate 100 mg tablet 150 mg PO BID tab 06/18/19 07/28/21 History nitroglycerin 0.8 mg/hr 1 patch TD QAM 06/18/19 07/28/21 History transdermal 24 hour patch (Nitro-Dur) omega-3 fatty acids 1,000 mg 1,000 mg PO QAM 06/18/19 07/28/21 History capsule (Fish Oil Concentrate) pantoprazole 40 mg tablet,delayed 40 mg PO QAM 06/18/19 07/28/21 History release nitroglycerin 0.4 mg sublingual 0.4 mg SL Q5M PRN #25 tab 11/22/19 07/28/21 Rx tablet (Nitrostat) blood sugar diagnostic (OneTouch #300 ea 08/18/20 06/13/21 Rx Ultra Blue Test Strip) gabapentin 100 mg capsule 100 mg PO HS #90 cap 02/07/21 07/28/21 Rx pen needle, diabetic 31 gauge x #50 ea 03/21/21 06/13/21 Rx /16" (BD Ultra-Fine Short Pen Needle) lancets 30 gauge (OneTouch Delica #300 ea 04/20/21 06/13/21 Rx Lancets) Lactobacillus acidophilus 1,000 mmu cells PO HS 07/28/21 07/28/21 History insulin glargine 100 unit/mL (3 45 unit SUBCUT HS 07/28/21 07/28/21 History mL) subcutaneous pen (Lantus Solostar U-100 Insulin) ranolazine 500 mg tablet,extended 500 mg PO BID 07/28/21 07/28/21 History release,12 hr vitamin B complex 1 cap PO QAM 07/28/21 07/28/21 History Past Med/Surg History Medical History Cholelithiasis Hypertension Unstable angina (01/12/14) Surgical History History of cholecystectomy History of esophagogastroduodenoscopy History of heart surgery History of hip replacement, total History of shoulder surgery Family History Father Myocardial infarction Heart disease Sister Breast cancer Mother Stroke Family/Other Arthritis Brother Coronary heart disease Denies family history of Ovarian cancer Prostate cancer Colorectal cancer Social History Smoking Status: Former smoker Tobacco Type: Cigarettes Age Started Using Tobacco: 11; Age Quit Using Tobacco: 48; packs per day: 0.75; Second Hand Exposure: Yes; Do You Dip or Chew Tobacco: No; Hx Alcohol Use: No Hx Substance Use: No Preferred Language: Serbian Communication Ability: Effective Visual Impairment: Limited Hearing Ability: Hard of Hearing Stallion Keeper Required: No Beliefs That Will Affect Care: None marital status: Current Living Situation: Family Current Living Situation Comment: lives with oldest daughter 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 many Children do You have: 2 Feels Safe at Home: No Any Concerns about Your Family Situation: No Safety Concerns: Feels Safe At This Time Childhood Exposure to Second-Hand Smoke: Yes caffeine: Yes (coffee) during the past year weight has: remained stable Dental Care, Regularly: No Physical Activity Frequency: Does not Exercise Seatbelt Use: always Sunscreen Use: No Assistive Devices: None Review of Systems Constitutional: no fever and no sweats Eyes: no blind spots and no diplopia Ear, Nose, Mouth, Throat: no ear pain and no ear trauma Respiratory: + cough and + change in sputum Cardiovascular: + chest pain; no chest pain with activity Gastrointestinal: no abdominal pain and no bloating Musculoskeletal: no back pain and no radicular pain Integumentary: no acne Neurologic: no gait abnormality and no falls Psychiatric: no behavioral changes Endocrine: + fatigue Hematologic / Lymphatic: no easy bleeding Allergy / Immunological: no seasonal rhinorrhea Physical Exam Constitutional: WD/WN, vitals as above Eyes: PERRL, conjunctivae normal, anicteric sclerae ENMT: external ear and nose normal, oropharynx normal Neck: trachea midline, no thyromegaly Respiratory: Bilateral wheezing Cardiovascular: RRR, no murmur, no edema Gastrointestinal (Abdomen): normal bowel sounds, soft, nontender, no hepatosplenomegaly Musculoskeletal: no cyanosis or clubbing, extremities motor strength 5/5 Skin: no rashes, warm and dry Psychiatric: A+Ox3, euthymic affect Lymphatic: no cervical or axillary lymphadenopathy Results & Data Results & Data ([facility]) Vital Signs (Past 12 Hours) Vital Signs Temp Pulse Pulse Resp BP Pulse Ox 07/28/21 10:30 77 24 121/58 L 93 07/28/21 10:00 70 24 95 07/28/21 09:30 70 22 143/75 H 96 07/28/21 09:08 70 24 93 07/28/21 09:00 69 22 93 07/28/21 08:35 80 L 07/28/21 08:31 36.5 C 71 28 H 157/70 H 83 L PG Care Time/CCT Total # of Minutes Spent Total Time Spent with Patient: Total time spent is greater than 50% in coordination of care (as documented) at patient's floor/unit and/or counseling patient: Coding Level of Care Code 37695 Initial Inpt Care Lvl 3 Diagnoses SOB (shortness of breath) R06.02 Hypertension I10 Type 2 diabetes mellitus E11.9 Hypercholesteremia E78.00 Type 2 diabetes mellitus with microalbuminuria, with long-term current use of insulin E11.29; R80.9; Z79.4
[2021-07-28] MEDS ORDERED: ALBUTEROL HFA 8 GM INHALER INH PRN (11:49)
[2021-07-28 12:16] LABS: Appearance Urine Clear (Clear); Bilirubin Urine Negative (Negative); Blood Urine Negative (Negative); Color Urine Yellow; Glucose Urine UA Negative (Negative); Ketones Urine Negative (Negative); Leukocyte Esterase Urine Negative (Negative); Nitrite Urine Negative (Negative); Protein Urine Negative (Negative); Specific Gravity Urine 1.011 (1.000-1.030); Urobilinogen Urine Negative (Negative)
[2021-07-28] MEDS ORDERED: FUROSEMIDE 20 MG in SYRINGE 0 ML IV ONE (13:44)
[2021-07-28] MEDS ORDERED: FUROSEMIDE 40 MG/4 ML VIAL IV ONE (14:00)
--- NOTE | 2021-07-28 14:13 | Electrocardiogram Report ---
Test Reason : Blood Pressure : / mmHG Vent. Rate : 072 BPM Atrial Rate : 072 BPM P-R Int : 182 ms QRS Dur : 136 ms QT Int : 418 ms P-R-T Axes : 057 041 200 degrees QTc Int : 457 ms Normal sinus rhythm Left bundle branch block T wave abnormality, consider inferior ischemia Abnormal ECG When compared with ECG of 14-JUN-2021 20:09, Inverted T waves have replaced nonspecific T wave abnormality in Inferior leads T wave inversion less evident in Lateral leads Confirmed by Garth Gonzales ([id number]) on 07/28/2021 2:12:35 PM Referred By: REFERRED SELF Confirmed By:Garth Gonzales
[2021-07-28 14:46] LABS: Adenovirus PCR Not Detected (NotDetected); Bordetella parapertussis PCR Not Detected (NotDetected); Bordetella pertussis PCR Not Detected (NotDetected); Chlamydia pneumoniae PCR Not Detected (NotDetected); Coronavirus 229E PCR Not Detected (NotDetected); Coronavirus CoV-2 (COVID19)PCR Not Detected (NotDetected); Coronavirus HKU1 PCR Not Detected (NotDetected); Coronavirus NL63 PCR Not Detected (NotDetected); Coronavirus OC43PCR Not Detected (NotDetected); Human Metapneumovirus PCR Not Detected (NotDetected); Influenza A PCR Not Detected (NotDetected); Influenza B PCR Not Detected (NotDetected); Mycoplasma pneumoniae PCR Not Detected (NotDetected); Parainfluenza Virus 1 PCR Not Detected (NotDetected); Parainfluenza Virus 2 PCR Not Detected (NotDetected); Parainfluenza Virus 3 PCR Not Detected (NotDetected); Parainfluenza Virus 4 PCR Not Detected (NotDetected); Respiratory Syncytial VirusPCR Not Detected (NotDetected); Rhinovirus/Enterovirus PCR Not Detected (NotDetected)
[2021-07-28] MEDS ORDERED: INFLUENZA VACCINE HIGH DOSE PF 65+ 0.7 ML SYR IM ONE (16:49)
--- NOTE | 2021-07-28 19:45 | CT Scan Report ---
CT OF THE CHEST WITHOUT IV CONTRAST CLINICAL HISTORY: Hypoxia. COMPARISON STUDY: Chest radiographs January 29, 2019 and July 28, 2021. CT DOSE: 397.57 mGy.cm TECHNIQUE: Axial images of the chest were obtained without IV contrast. Images were reviewed in the axial, sagittal, and coronal planes. IV contrast was not administered for this examination. Automat ed exposure control was utilized for the study. A dose lowering technique was utilized adhering to t he principles of ALARA. FINDINGS: Several prominent mediastinal lymph nodes are likely benign. There is mild cardiomegaly. E xtensive coronary artery calcification is noted. There is no pericardial effusion. Small bilateral pl eural effusions are noted. Bilateral lower lobe opacities favor atelectasis. No central obstructing m ass is noted. There is mild interlobular septal thickening. Note is made of a 1.8 x 1.4 cm subpleural groundglass nodule within the right upper lobe on image 108 of 276. This may have a pleural tag. The re is an adjacent 7 mm groundglass nodule on image 120. No acute fracture or suspicious lesion is yan ntified within visualized portions of the bony thorax. Visualized portions of the upper abdomen are u nremarkable on this unenhanced exam. IMPRESSION: 1. Findings suggestive of mild interstitial pulmonary edema with small bilateral pleural effusions an d associated bilateral lower lobe opacities that favor atelectasis. 2. 1.8 x 1.4 cm subpleural right upper lobe groundglass nodule. Although this could be infectious, t he appearance is suspicious for a neoplasm. A 2 month follow-up chest CT is recommended. An adjacent 7 mm groundglass nodule can be assessed on that exam. 2. Mild cardiomegaly. Extensive coronary artery calcification. ACT 112: Positive. There are findings on this exam that require communication between the performing entity and the patient following Patient Test Result Information Act ([place] Act 112) guidelines. Electronically signed by: Adrian Live M.D. 07/28/2021 7:43 PM
[2021-07-28] MEDS ORDERED: PHENAZOPYRIDINE HCL 200 MG TAB PO STA (20:15)
[2021-07-28] MEDS: LEVALBUTEROL HCL 1.25 MG/3 ML NEB NEB SCH (20:23)
[2021-07-28] MEDS ORDERED: ASPIRIN 81 MG CHEW PO SCH (21:00)
[2021-07-28] MEDS: CLOPIDOGREL BISULFATE 75 MG TAB PO SCH (21:10)
[2021-07-28] MEDS: ADVANCED PROBIOTIC 1250 MG CAPSULE PO SCH (21:10)
[2021-07-28] MEDS: GABAPENTIN 100 MG CAP PO SCH (21:10)
[2021-07-28] MEDS: METOPROLOL TARTRATE 50 MG TAB PO SCH (21:16)
[2021-07-28] MEDS: amLODIPine BESYLATE 5 MG TAB PO SCH (21:16)
[2021-07-28] MEDS: RANOLAZINE 500 MG ER TAB PO SCH (21:17)
[2021-07-28] MEDS: INSULIN ASPART 100 UNITS/ML 3 ML PEN SC SCH (21:48)
[2021-07-28] MEDS: INSULIN GLARGINE SOLOSTAR 100 UNITS/ML 3 ML PEN SQ SCH (21:49)
[2021-07-28] MEDS: HEPARIN SOD 5,000 UNIT/0.5 ML VIAL SQ SCH (21:49)
[2021-07-29] MEDS: LEVALBUTEROL HCL 1.25 MG/3 ML NEB NEB SCH ×4 (00:04→19:33)
[2021-07-29] MEDS: HEPARIN SOD 5,000 UNIT/0.5 ML VIAL SQ SCH (05:26)
[2021-07-29 05:53] LABS: Hematocrit (blood only) 37.2 % (42-52); Hemoglobin 12.2 g/dL (14.0-18.0); Mean Corpuscular Hemoglobin 29.8 pg (25-34); Mean Corpuscular Hgb Conc 32.8 g/dL (32-36); Mean Platelet Volume 12.2 fL (7.4-10.4); Platelet Count 180 K/uL (130-400); RDW Coefficient of Variation 14.4 % (11.5-14.5); RDW Standard Deviation 47.7 fL (36.4-46.3); Red Blood Count 4.09 M/uL (4.7-6.1)
[2021-07-29 06:21] LABS: BUN Creatinine Ratio 12.8 (10-20); Est GFR (African American) 52.9 ml/min; Est GFR (Non-African American) 45.7 ml/min
[2021-07-29] MEDS ORDERED: DEXTROSE 50% 50 ML SYRINGE IV PRN (06:29)
[2021-07-29] MEDS ORDERED: CARBOHYDRATES FOR HYPOGLYCEMIA PO PRN (06:29)
[2021-07-29] MEDS ORDERED: GLUCOSE 40% GEL 15 GM TUBE PO PRN (06:29)
[2021-07-29] MEDS ORDERED: GLUCAGON FOR INJ 1 MG VIAL SQ PRN (06:29)
[2021-07-29] MEDS ORDERED: GLUCOSE 10 TABS/TUBE PO PRN (06:29)
--- NOTE | 2021-07-29 08:23 | Hospitalist Progress Note ---
Date of Service July 29, 2021 Assessment & Plan (1) SOB (shortness of breath): Plan: 80 yo male with worsening SOB, orthopnea. echo shows preserved EF, concentric LVH raising concern for acute HFpEF was given iv lasix in er, does have moderate pleural effusions and has acute hypoxic respiratory failure May have a component of COPD exacerbation. CT scan of chest shows effusions . (2) Hypertension: Plan: amlodipine, metiprolol, isosorbide, also on ranexa for CAD (3) Type 2 diabetes mellitus with microalbuminuria, with long-term current use of insulin: Plan: as state above. (4) Hypercholesteremia: Plan: will place on statin (5) Acute on chronic diastolic (congestive) heart failure: Plan: Echo on 07/28 showed preserved EF, concentric LVH raising concern for acute HFpEF. - Seen by cardiology; continue furosemide 40 mg IV daily for diuresis. -> Net negative 5L today. Weight down about 4 kg as well, so this is consistent. Near baseline weight and honestly, does not appear volume overloaded at this time. - Will order NM perfusion scan to r/o PE and LE Dopplers to r/o DVT. I am concerned that he still needs 7L despite his CXR now clear and his exam indicating euvolemia. (6) Pleural effusion: Plan: Bilateral pleural effusions noted on CT chest on 07/28. - Seen by Dr. Perez while inpatient. No immediate plan for thoracentesis with hope that they will improve/resolve with diuresis. (7) CAD (coronary artery disease): Plan: No chest pain or acute issues. Follows with [facility] cardiology. - Continue home ASA/Plavix, beta-cesar, Imdur (8) Pulmonary nodule 1 cm or greater in diameter: Plan: 1.8 x 1.4 cm subpleural groundglass nodule within the right upper lobe. Concern for infection vs. malignancy. - Will need repeat CT chest in 09/2021 or 10/2021. (9) DVT prophylaxis: Plan: Heparin 5,000 units SQ Q12h Plan: DNR: DNI Heparin subq Admission and Anticipated Discharge Date Admission Date: July 28, 2021 Subjective pt feels somewhat improved but still with high oxygen requirement, daughter is at the bedside and updated Review of Systems Constitutional: + fatigue and + weakness Respiratory: + chest congestion, + dyspnea and + dyspnea on exertion; no cough Cardiovascular: no chest pain and no dyspnea on exertion Gastrointestinal: no abdominal pain, no nausea and no vomiting Musculoskeletal: no joint pain and no swelling Integumentary: no rash and no lesions Physical Exam Constitutional: well developed and well nourished Eyes: PERRL, conjunctivae normal, anicteric sclerae Neck: trachea midline Thyroid: normal thyroid Respiratory: increased respiratory effort, dull at the bases Cardiovascular: RRR, no murmur, no edema Gastrointestinal (Abdomen): normal bowel sounds, soft, nontender, no hepatosplenomegaly Musculoskeletal: no cyanosis or clubbing, extremities motor strength 5/5 Skin: no rashes, warm and dry Neurologic: PERRL, EOMI, accommodation nl, no face palsy, no dysarthria Psychiatric: A+Ox3, euthymic affect Results & Data Results & Data ([facility]) Vital Signs (Past 12 Hours) Vital Signs Temp Pulse Pulse Resp BP Pulse Ox Pulse Ox 07/29/21 07:49 89 L 07/29/21 07:19 97.5 F L 70 22 129/65 93 07/29/21 07:18 68 20 93 07/29/21 07:05 71 07/29/21 04:22 98.6 F 72 22 94/62 L 89 L 07/29/21 00:15 98.8 F 73 20 120/63 92 07/29/21 00:04 20 07/28/21 23:00 79 07/28/21 21:16 90 142/74 H 07/28/21 20:25 83 18 91 PG Care Time/CCT Total # of Minutes Spent Total Time Spent with Patient: Total time spent is greater than 50% in coordination of care (as documented) at patient's floor/unit and/or counseling patient: Coding Level of Care Code 61996 Subseq Hosp Care Lvl 2 Diagnoses SOB (shortness of breath) R06.02 Hypertension I10 Hypercholesteremia E78.00 Type 2 diabetes mellitus with microalbuminuria, with long-term current use of insulin E11.29; R80.9; Z79.4 Acute on chronic diastolic (congestive) heart failure I50.33 Pleural effusion J90 CAD (coronary artery disease) I25.10 Pulmonary nodule 1 cm or greater in diameter R91.1 DVT prophylaxis Z29.9
[2021-07-29] MEDS: ASPIRIN 81 MG ECTAB PO SCH (08:40)
[2021-07-29] MEDS: amLODIPine BESYLATE 5 MG TAB PO SCH ×2 (08:40→21:01)
[2021-07-29] MEDS: OMEGA-3 (PURIFIED FISH OIL) 1 GM CAP PO SCH (08:41)
[2021-07-29] MEDS: ATORVASTATIN 10 MG TAB PO SCH (08:41)
[2021-07-29] MEDS: METOPROLOL TARTRATE 50 MG TAB PO SCH ×2 (08:41→21:00)
[2021-07-29] MEDS: VITAMIN B COMPLEX TAB PO SCH (08:42)
[2021-07-29] MEDS: PANTOprazole 40 MG TAB PO SCH (08:42)
[2021-07-29] MEDS: RANOLAZINE 500 MG ER TAB PO SCH ×2 (08:42→21:00)
[2021-07-29] MEDS: INSULIN ASPART 100 UNITS/ML 3 ML PEN SC SCH ×4 (08:48→21:02)
[2021-07-29] MEDS: ISOSORBIDE MONO EXTENDED REL 60 MG TABCR PO SCH (08:52)
[2021-07-29] MEDS ORDERED: FUROSEMIDE 40 MG/4 ML VIAL IV SCH (09:00)
[2021-07-29] MEDS: FUROSEMIDE 40 MG in SYRINGE 0 ML IV SCH (09:39)
--- NOTE | 2021-07-29 11:22 | Cardiology Consultation ---
Date of Consultation July 29, 2021 Assessment & Plan (1) Acute on chronic diastolic (congestive) heart failure: (2) SOB (shortness of breath): (3) Hypertension: (4) Hyperkalemia: (5) Type 2 diabetes mellitus with microalbuminuria, with long-term current use of insulin: (6) CAD (coronary artery disease): (7) Chronic bundle branch block: The patient presents in acute decompensated diastolic heart failure with a possible COPD exacerbation component. Echocardiogram revealed normal LV systolic function. He has been diuresing well with IV diuretics and this should be continued. I will increase his Lasix to 40 mg IV twice daily. Strict I's and O's along with daily weights. Follow and replete electrolytes as needed. He is to be evaluated by pulmonary for possible thoracentesis as well. History of Present Illness Reason for Consultation: acute diastolic heart failure Requesting Physician: Dr. Hayward Attending Physician: Popeye Falk MD History of Present Illness Mr. Hernandez is a very pleasant 80-year-old gentleman who follows with Luis Alonso of our cardiology practice. He presented to [facility] on 07/28/2021 with complaints of 3 weeks of shortness of breath. He states his breathing initially worsened upon exertion but he is now becoming short of breath at rest as well. He has been having some increasing lower extremity edema but denies any chest pain, palpitations, lightheadedness, dizziness or syncope. He states his been compliant with his medical regimen and low-salt diet. Upon arrival he was found to be significantly volume overloaded with bilateral pleural effusions and was started on IV diuresis along with supplemental oxygen. He is diuresed approximately 3 L since admission. Currently states his breathing is somewhat better at rest but not yet back to baseline. Problem List: 1. Multivessel atherosclerotic coronary artery disease. 1. November 2005 cardiac catheterization demonstrating multivessel coronary artery disease with severely calcified coronaries, serial LAD stenoses s/p angioplasty x 3, 90% large first OM stenosis, 50% proximal LPL stenosis, and a total 100% mid right coronary occlusion with the RPL and PDA branches filling via [id number] collaterals. LVEF was 55% without MR or aortic gradient. 2. Catheterization complicated by balloon rupture and associated ST segment elevation. 2. Chronic left bundle branch block 3. Hypertension, hypertensive heart disease (moderate concentric LVH on prior echo) 4. Diastolic dysfunction 5. Hyperlipidemia 6. Chronically abnormal LFT's 7. Type 2 diabetes mellitus with microalbuminuria, long-term insulin use 8. History of tobacco abuse. 9. GERD. 10. Gout 11. Rosacea. Allergies Allergy/AdvReac Type Severity Reaction Status Date / Time amoxicillin Allergy Severe swelling Verified 07/28/21 10:29 of lips and throat, shortness of breath Sulfa (Sulfonamide Allergy Intermediate HIVES Verified 07/28/21 10:29 Antibiotics) adhesive Allergy Unknown rash/skin Verified 07/28/21 10:29 irritation Home Medications Medication Instructions Recorded Confirmed Type albuterol sulfate 90 mcg/actuation 2 puffs INH QID PRN #8.5 gm 03/24/19 07/28/21 Rx aerosol inhaler (ProAir HFA) amlodipine 5 mg tablet 5 mg PO BID tab 06/18/19 07/28/21 History aspirin 81 mg chewable tablet 81 mg PO HS 06/18/19 07/28/21 History atorvastatin 10 mg tablet 10 mg PO QAM 06/18/19 07/28/21 History clopidogrel 75 mg tablet 75 mg PO HS 06/18/19 07/28/21 History isosorbide mononitrate 60 mg 60 mg PO QAM 06/18/19 07/28/21 History tablet,extended release 24 hr metoprolol tartrate 100 mg tablet 150 mg PO BID tab 06/18/19 07/28/21 History nitroglycerin 0.8 mg/hr 1 patch TD QAM 06/18/19 07/28/21 History transdermal 24 hour patch (Nitro-Dur) omega-3 fatty acids 1,000 mg 1,000 mg PO QAM 06/18/19 07/28/21 History capsule (Fish Oil Concentrate) pantoprazole 40 mg tablet,delayed 40 mg PO QAM 06/18/19 07/28/21 History release nitroglycerin 0.4 mg sublingual 0.4 mg SL Q5M PRN #25 tab 11/22/19 07/28/21 Rx tablet (Nitrostat) blood sugar diagnostic (OneTouch #300 ea 08/18/20 06/13/21 Rx Ultra Blue Test Strip) gabapentin 100 mg capsule 100 mg PO HS #90 cap 02/07/21 07/28/21 Rx pen needle, diabetic 31 gauge x #50 ea 03/21/21 06/13/21 Rx 02/18" (BD Ultra-Fine Short Pen Needle) lancets 30 gauge (OneTouch Delneno #300 ea 04/20/21 06/13/21 Rx Lancets) Lactobacillus acidophilus 1,000 mmu cells PO HS 07/28/21 07/28/21 History insulin glargine 100 unit/mL (3 45 unit SUBCUT HS 07/28/21 07/28/21 History mL) subcutaneous pen (Lantus Solostar U-100 Insulin) ranolazine 500 mg tablet,extended 500 mg PO BID 07/28/21 07/28/21 History release,12 hr vitamin B complex 1 cap PO QAM 07/28/21 07/28/21 History Patient History Medical History Cholelithiasis Hypertension Unstable angina (01/12/14) Surgical History History of cholecystectomy History of esophagogastroduodenoscopy History of heart surgery History of hip replacement, total History of shoulder surgery Family History Father Myocardial infarction Heart disease Sister Breast cancer Mother Stroke Family/Other Arthritis Brother Coronary heart disease Denies family history of Ovarian cancer Prostate cancer Colorectal cancer Social History Smoking Status: Former smoker Tobacco Type: Cigarettes Age Started Using Tobacco: 11; Age Quit Using Tobacco: 48; packs per day: 0.75; Second Hand Exposure: Yes; Do You Dip or Chew Tobacco: No; Hx Alcohol Use: No Hx Substance Use: No Preferred Language: Yi Communication Ability: Effective Visual Impairment: Limited Hearing Ability: Hard of Hearing Data Clerk Required: No Beliefs That Will Affect Care: None marital status: Current Living Situation: Family Current Living Situation Comment: lives with oldest daughter 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 No acute distress. HEENT: Normocephalic, atraumatic. Pupils equal, round and reactive to light and accommodation. Extraocular muscles are intact. Anicteric sclera. Moist mucous membranes. Neck: No JVD. No bruit. Cardiovascular: Regular. Positive S-4. Normal S-1 and S-2. No S-3. 3/6 mid to late systolic ejection murmur, greatest at the right sternal border, second intercostal space with radiation to the bilateral carotids. No rubs. Pulmonary: Poor air movement in the bilateral bases with crackles. No wheezing Abdomen: Bowel sounds x 4, soft. No rebound, guarding or tenderness. No organomegaly. Extremities: No clubbing, cyanosis or edema. +2 pedal pulses bilaterally. Skin: Warm and dry. Results & Data ([facility]) Vital Signs (Past 12 Hours) Vital Signs Temp Pulse Pulse Resp BP Pulse Ox Pulse Ox 07/29/21 10:29 88 L 07/29/21 07:49 89 L 07/29/21 07:19 36.4 C L 70 22 129/65 93 07/29/21 07:18 68 20 93 07/29/21 07:05 71 07/29/21 04:22 37.0 C 72 22 94/62 L 89 L 07/29/21 00:15 37.1 C 73 20 120/63 92 07/29/21 00:04 20
--- NOTE | 2021-07-29 14:28 | Pulmonary Consultation ---
Date of Consultation July 29, 2021 Assessment & Plan (1) SOB (shortness of breath): (2) Acute on chronic diastolic (congestive) heart failure: (3) Pleural effusion: Impression: 80-year-old male admitted with shortness of breath. He is found to have bilateral small pleural effusions and has been initiated on diuretics. His venous blood gas demonstrated an elevated CO2 of unclear etiol ogy. He does have basilar atelectasis and likely has significant shunt fraction especially if he is lying supine in bed. Recommendations: 1. Pleural effusions: Had a long discussion with the patient. He is relatively asymptomatic currently but is not really doing much. He would like to hold off on invasive procedures currently and I certainly think that is reasonable especially given the fact that he is on Plavix. Given the fact that these effusions are bilateral, I would argue for potential pulmonary venous hypertension and elevated filling pressures as an etiology. He does not have si gnificant edema. I would favor continued diuretics and seeing how he does. His Plavix should be held if possible so that if he does require interventions, his risk of intrathoracic bleeding is kept to a minimum. 2. Elevated CO2: We will check a blood gas to see if this is chronically elevated. Patient relates having a sleep study performed previously but I can find no record in our electronic medical record. Outpatient sleep study and pulmonary function test as an outpatient should be considered if the patient has significant elevation in his CO2. We may consider empiric BiPAP but we will see what his blood gas looks like first. 3. I think the patient would do better if he can get out of bed and sit in a chair. From my standpoint, there is no reason to have him on bedrest currently. His VQ mismatch and shunt fraction will be worsened in the supine position. 4. Hypoxemia: We will place the patient on an aggressive pulmonary regimen including flutter valve incentive spirometry to see if we can improve his basilar atelectasis. We will continue to follow with you. We will continue to reassess on a daily basis potential need for thoracentesis. History of Present Illness Attending Physician: Popeye Falk MD History of Present Illness Asked by hospitalist to evaluate this patient with hypoxemic respiratory failure and small bilateral effusions. History is obtained from discussion with the patient as well as review electronic medical record and discussion with the hospitalist. The patient is an 80-year-old male with a remote history of tobacco abuse. He was admitted to the hospital 07/28/2021 with 3-week history of progressive sh ortness of breath. He initially noted that it was worse with exertion but has noted some dyspnea at rest. He was found to be profoundly hypoxemic. Venous blood gas also elevated demonstrated an elevated CO2 level. The patient cannot recall having had PFTs performed previously and does not cough or produce phlegm on a regular basis. He has been placed on oxygen and diuretics. He feels that he is breathing well currently but continues to require significant amount of oxygen. Has been on Plavix for quite some time and is not entirely clear the indication for his Plavix. He does have known diastolic dysfunction and hypertension as well. He states he has been evaluated for sleep disordered breathing in the past but does not use CPAP at home. Patient would like to be up and ambulatory but states he has been confined to bed. He feels that his breathing is doing okay and is not complaining of any chest pain palpitations or significant lower extremity edema. No wheezing cough or sputum production. No sinus complaints or reflux. Allergies Allergy/AdvReac Type Severity Reaction Status Date / Time amoxicillin Allergy Severe swelling Verified 07/28/21 10:29 of lips and throat, shortness of breath Sulfa (Sulfonamide Allergy Intermediate HIVES Verified 07/28/21 10:29 Antibiotics) adhesive Allergy Unknown rash/skin Verified 07/28/21 10:29 irritation Home Medications Medication Instructions Recorded Confirmed Type albuterol sulfate 90 mcg/actuation 2 puffs INH QID PRN #8.5 gm 03/24/19 07/28/21 Rx aerosol inhaler (ProAir HFA) amlodipine 5 mg tablet 5 mg PO BID tab 06/18/19 07/28/21 History aspirin 81 mg chewable tablet 81 mg PO HS 06/18/19 07/28/21 History atorvastatin 10 mg tablet 10 mg PO QAM 06/18/19 07/28/21 History clopidogrel 75 mg tablet 75 mg PO HS 06/18/19 07/28/21 History isosorbide mononitrate 60 mg 60 mg PO QAM 06/18/19 07/28/21 History tablet,extended release 24 hr metoprolol tartrate 100 mg tablet 150 mg PO BID tab 06/18/19 07/28/21 History nitroglycerin 0.8 mg/hr 1 patch TD QAM 06/18/19 07/28/21 History transdermal 24 hour patch (Nitro-Dur) omega-3 fatty acids 1,000 mg 1,000 mg PO QAM 06/18/19 07/28/21 History capsule (Fish Oil Concentrate) pantoprazole 40 mg tablet,delayed 40 mg PO QAM 06/18/19 07/28/21 History release nitroglycerin 0.4 mg sublingual 0.4 mg SL Q5M PRN #25 tab 11/22/19 07/28/21 Rx tablet (Nitrostat) blood sugar diagnostic (OneTouch #300 ea 08/18/20 06/13/21 Rx Ultra Blue Test Strip) gabapentin 100 mg capsule 100 mg PO HS #90 cap 02/07/21 07/28/21 Rx pen needle, diabetic 31 gauge x #50 ea 03/21/21 06/13/21 Rx /16" (BD Ultra-Fine Short Pen Needle) lancets 30 gauge (OneTouch Delica #300 ea 04/20/21 06/13/21 Rx Lancets) Lactobacillus acidophilus 1,000 mmu cells PO HS 07/28/21 07/28/21 History insulin glargine 100 unit/mL (3 45 unit SUBCUT HS 07/28/21 07/28/21 History mL) subcutaneous pen (Lantus Solostar U-100 Insulin) ranolazine 500 mg tablet,extended 500 mg PO BID 07/28/21 07/28/21 History release,12 hr vitamin B complex 1 cap PO QAM 07/28/21 07/28/21 History Patient History Medical History Cholelithiasis Hypertension Unstable angina (01/12/14) Surgical History History of cholecystectomy History of esophagogastroduodenoscopy History of heart surgery History of hip replacement, total History of shoulder surgery Family History Father Myocardial infarction Heart disease Sister Breast cancer Mother Stroke Family/Other Arthritis Brother Coronary heart disease Denies family history of Ovarian cancer Prostate cancer Colorectal cancer Social History Smoking Status: Former smoker Tobacco Type: Cigarettes Age Started Using Tobacco: 11; Age Quit Using Tobacco: 48; packs per day: 0.75; Second Hand Exposure: Yes; Do You Dip or Chew Tobacco: No; Hx Alcohol Use: No Hx Substance Use: No Preferred Language: [place] Communication Ability: Effective Visual Impairment: Limited Hearing Ability: Hard of Hearing [employer] Required: No Beliefs That Will Affect Care: None marital status: Current Living Situation: Family Current Living Situation Comment: lives with oldest daughter 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 many Children do You have: 2 Feels Safe at Home: Yes Safety Concerns: Feels Safe At This Time Childhood Exposure to Second-Hand Smoke: Yes caffeine: Yes (coffee) during the past year weight has: remained stable Dental Care, Regularly: No Physical Activity Frequency: Does not Exercise Seatbelt Use: always Sunscreen Use: No Assistive Devices: None Review of Systems Review of Systems: Negative except as noted in H&P. Please refer to hospitali st note Physical Exam Constitutional: WD/WN, vitals as above Neck: trachea midline, no thyromegaly Respiratory: normal respiratory effort; no respiratory distress and no labored breathing Decreased breath sounds at the bilateral bases. No wheezing Cardiovascular: RRR, no murmur, no edema Gastrointestinal (Abdomen): normal bowel sounds, soft, nontender, no hepatosplenomegaly Musculoskeletal: Extremities: extremities normal to inspection Skin: no rashes, warm and dry Neurologic: Nonfocal exam Lymphatic: no cervical lymphadenopathy Results & Data Results & Data ([facility]) Vital Signs (Past 12 Hours) Vital Signs Temp Pulse Pulse Resp BP Pulse Ox Pulse Ox 07/29/21 13:20 88 L 07/29/21 12:51 69 20 90 07/29/21 12:21 73 121/65 90 07/29/21 11:40 36.8 C 67 20 91/39 L 87 L 07/29/21 11:00 72 20 121/62 89 L 07/29/21 10:29 88 L 07/29/21 07:49 89 L 07/29/21 07:19 36.4 C L 70 22 129/65 93 07/29/21 07:18 68 20 93 07/29/21 07:05 71 07/29/21 04:22 37.0 C 72 22 94/62 L 89 L Laboratory Results 07/29/21 05:21 07/29/21 05:21 07/28/21 08:54 VBG pH 7.32 L VBG pCO2 56 H VBG pO2 45 VBG HCO3 29 VBG O2 Saturation 76.1 VBG Base Excess 1.4 BNP 682 Procalcitonin negative Bio fire negative Diagnostic Findings Images independently reviewed. CT OF THE CHEST WITHOUT IV CONTRAST CLINICAL HISTORY: Hypoxia. COMPARISON STUDY: Chest radiographs January 29, 2019 and July 28, 2021. CT DOSE: 397.57 mGy.cm TECHNIQUE: Axial images of the chest were obtained without IV contrast. Images were reviewed in the axial, sagittal, and coronal planes. IV contrast was not administered for this examination. Automated exposure control was utilized for the study. A dose lowering technique was utilized adhering to the principles of ALARA. FINDINGS: Several prominent mediastinal lymph nodes are likely benign. There is mild cardiomegaly. Extensive coronary artery calcification is noted. There is no pericardial effusion. Small bilateral pleural effusions are noted. Bilateral lower lobe opacities favor atelectasis. No central obstructing mass is noted. There is mild interlobular septal thickening. Note is made of a 1.8 x 1.4 cm subpleural groundglass nodule within the right upper lobe on image 108 of 276. This may have a pleural tag. There is an adjacent 7 mm groundglass nodule on image 120. No acute fracture or suspicious lesion is identified within visualized portions of the bony thorax. Visualized portions of the upper abdomen are unremarkable on this unenhanced exam. IMPRESSION: 1. Findings suggestive of mild interstitial pulmonary edema with small bilateral pleural effusions and associated bilateral lower lobe opacities that favor atelectasis. 2. 1.8 x 1.4 cm subpleural right upper lobe groundglass nodule. Although this could be infectious, the appearance is suspicious for a neoplasm. A 2 month follow-up chest CT is recommended. An adjacent 7 mm groundglass nodule can be assessed on that exam. 2. Mild cardiomegaly. Extensive coronary artery calcification. PG Care Time/CCT Total # of Minutes Spent Total Time Spent with Patient: Total time spent is greater than 50% in coordination of care (as documented) at patient's floor/unit and/or counseling patient: Coding Level of Care Code 08295 Initial Inpt Care Lvl 3 Diagnoses SOB (shortness of breath) R06.02 Acute on chronic diastolic (congestive) heart failure I50.33 Pleural effusion J90
[2021-07-29 15:07] LABS: Base Excess ABG 5.2 mEq/L (-9-1.8); HCO3 ABG 31 mmol/L (19-24); Oxygen Saturation ABG 92.5 % (90-95); PCO2 ABG 48 mmHg (35-46); PO2 ABG 63 mmHg (80-95); pH ABG 7.42 (7.35-7.45)
[2021-07-29 15:09] LABS: Allen Test Pos (Pos)
[2021-07-29] MEDS ORDERED: FUROSEMIDE 40 MG in SYRINGE 0 ML IV ONE (17:30)
[2021-07-29] MEDS ORDERED: FUROSEMIDE 40 MG/4 ML VIAL IV ONE (17:52)
[2021-07-29] MEDS: GABAPENTIN 100 MG CAP PO SCH (21:00)
[2021-07-29] MEDS: ADVANCED PROBIOTIC 1250 MG CAPSULE PO SCH (21:02)
[2021-07-29] MEDS: INSULIN GLARGINE SOLOSTAR 100 UNITS/ML 3 ML PEN SQ SCH (21:03)
[2021-07-30] MEDS: LEVALBUTEROL HCL 1.25 MG/3 ML NEB NEB SCH ×4 (00:23→19:17)
[2021-07-30] MEDS: PANTOprazole 40 MG TAB PO SCH (08:27)
[2021-07-30] MEDS: METOPROLOL TARTRATE 50 MG TAB PO SCH ×2 (08:27→20:15)
[2021-07-30] MEDS: FUROSEMIDE 40 MG in SYRINGE 0 ML IV SCH (08:27)
[2021-07-30] MEDS: VITAMIN B COMPLEX TAB PO SCH (08:27)
[2021-07-30] MEDS: OMEGA-3 (PURIFIED FISH OIL) 1 GM CAP PO SCH (08:27)
[2021-07-30] MEDS: ATORVASTATIN 10 MG TAB PO SCH (08:27)
[2021-07-30] MEDS: ISOSORBIDE MONO EXTENDED REL 60 MG TABCR PO SCH (08:28)
[2021-07-30] MEDS: INSULIN ASPART 100 UNITS/ML 3 ML PEN SC SCH ×4 (08:28→21:43)
[2021-07-30] MEDS: RANOLAZINE 500 MG ER TAB PO SCH ×2 (08:28→20:14)
[2021-07-30] MEDS: amLODIPine BESYLATE 5 MG TAB PO SCH (08:29)
--- NOTE | 2021-07-30 09:08 | Cardiology Progress Note ---
Date of Service July 30, 2021 Assessment & Plan (1) Acute on chronic diastolic (congestive) heart failure: (2) SOB (shortness of breath): (3) Hypertension: (4) Hyperkalemia: (5) Type 2 diabetes mellitus with microalbuminuria, with long-term current use of insulin: (6) CAD (coronary artery disease): (7) Chronic bundle branch block: Plan: Presentation on 07/28/2021 with acute dyspnea and wheezing, attributed to acute decompensated diastolic congestive heart failure I/O's negative 3,158 mL's overall thus far, with considerable improvement in presenting symptoms. Continue IV diuresis today, likely switching to oral furosemide in the morning. PA and lateral chest x-ray requested along with a basic metabolic panel. Admission and Anticipated Discharge Date Admission Date: July 28, 2021 Supervising Physician Co-Signing Physician Notes I have seen and examined the patient. I have reviewed the medical record and discussed the case with Mr. Alonso. I agree with the plan as outlined above. Subjective Patient seen and examined. Chart, medications, and telemetry reviewed. Patient states "I fell a lot better." Dyspnea, orthopnea, and wheezing have significantly improved. No chest pain, palpitations, PND, or peripheral edema, dizziness, or syncope. I/O's negative 3,158 mL's overall BNP notably normal at 682 pg/mL on 07/29 TTE on 07/28 revealed normal LV size and function, moderate concentric LVH, EF 60-65%, abnormal septal wall motion, mild aortic sclerosis without stenosis. Telemetry: Sinus in the 60's. No significant arrhythmias. Review of Systems Review of Systems: Complete Review of Systems is as stated above, negative, or noncontributory. Physical Exam Physical Exam: General: A&Ox3. NAD. Patient laying at 20 degrees initially without perceived difficulty. HENT: Normocephalic. Atraumatic. Eyes: PER. Conjunctiva pink, sclera clear. Neck: Bilateral carotid bruits. No JVD. Heart: RRR. Systolic ejection murmur. + Gallop. No rub. PMI is nondisplaced. Lungs: Right basilar rales. Decreased/absent breath sounds at the LLSB. No wheeze. Abdomen: +BS. Soft. Nontender. No masses or organomegaly. Extremities: No clubbing, cyanosis, or edema. Limited neurological examination is without focal deficits. Pulses: radial=2/4, posterior tibial=2/4. Results & Data ([facility]) Vital Signs (Past 12 Hours) Vital Signs Temp Pulse Pulse Resp BP Pulse Ox 07/30/21 07:59 36.6 C 67 18 96/50 L 92 07/30/21 07:20 67 19 90 07/30/21 06:17 70 22 101/49 L 90 07/30/21 04:51 67 07/30/21 04:11 36.7 C 68 18 99/47 L 91 07/30/21 00:23 77 18 90 07/29/21 22:34 36.7 C 67 18 89/42 L 91 Laboratory Results Laboratory Results - last 24 hr 07/29/21 07/29/21 07/29/21 11:28 14:36 16:12 ABG pH 7.42 ABG pCO2 48 H ABG pO2 63 L ABG HCO3 31 H ABG O2 Saturation 92.5 ABG Base Excess 5.2 H Joe Test Pos Barometric Pressure 733.5 Oxygen Given 8L POC Glucose 101 H 197 H 07/29/21 07/30/21 20:27 07:14 ABG pH ABG pCO2 ABG pO2 ABG HCO3 ABG O2 Saturation ABG Base Excess Joe Test Barometric Pressure Oxygen Given POC Glucose 145 H 162 H
--- NOTE | 2021-07-30 14:14 | Hospitalist Progress Note ---
Date of Service July 30, 2021 Assessment & Plan (1) Acute on chronic diastolic (congestive) heart failure: Plan: Echo on 07/28 showed preserved EF, concentric LVH raising concern for acute HFpEF. - Seen by cardiology; continue furosemide 40 mg IV daily for diuresis. -> Net negative 3L. (2) Pleural effusion: Plan: Bilateral pleural effusions noted on CT chest on 07/28. - Seen by Dr. Perez while inpatient. No immediate plan for thoracentesis with hope that they will improve/resolve with diuresis. (3) CAD (coronary artery disease): Plan: No chest pain or acute issues. Follows with [facility] cardiology. - Continue home ASA/Plavix, beta-cesar, Imdur (4) Hypertension: Plan: BP is presently 95/50. - Continue metoprolol, isosorbide - Reduce amlodipine to daily (5) Type 2 diabetes mellitus with microalbuminuria, with long-term current use o f insulin: Plan: A1c was 7.5% in 06/2021. - Hold oral meds - Sliding scale insulin (6) Hypercholesteremia: Plan: - Continue atorvastatin (7) Pulmonary nodule 1 cm or greater in diameter: Plan: 1.8 x 1.4 cm subpleural groundglass nodule within the right upper lobe. Concern for infection vs. malignancy. - Will need repeat CT chest in 09/2021 or 10/2021. (8) DVT prophylaxis: Plan: Heparin 5,000 units SQ Q12h Admission and Anticipated Discharge Date Admission Date: July 28, 2021 Subjective Doing much better. Reports his breathing is "a heck of a lot" better compared to admission. Reports no fevers/chills, chest pain, abdominal pain, nausea, or vomiting. Physical Exam Constitutional: WD/WN, vitals as above Eyes: EOM intact bilaterally; no conjunctival abnormality ENMT: external ear and nose normal, oropharynx normal Neck: trachea midline, no thyromegaly normal visual inspection Respiratory: normal respiratory effort, lungs clear to auscultation no respiratory distress Cardiovascular: RRR, no murmur, no edema Gastrointestinal (Abdomen): Inspection/Auscultation: abdomen normal to inspection; abdomen not distended Musculoskeletal: no cyanosis or clubbing, extremities motor strength 5/5 Skin: no rashes, warm and dry Neurologic: moves all extremities and awake Psychiatric: Orientation: alert, oriented to person and cooperative Results & Data Results & Data ([facility]) Vital Signs (Past 12 Hours) Vital Signs Temp Pulse Pulse Resp BP Pulse Ox 07/30/21 13:09 65 19 93 07/30/21 11:04 36.7 C 70 18 94/52 L 91 07/30/21 08:00 69 07/30/21 07:59 36.6 C 67 18 96/50 L 92 07/30/21 07:20 67 19 90 07/30/21 06:17 70 22 101/49 L 90 07/30/21 04:51 67 07/30/21 04:11 36.7 C 68 18 99/47 L 91 PG Care Time/CCT Total # of Minutes Spent Total Time Spent with Patient: Total time spent is greater than 50% in coordination of care (as documented) at patient's floor/unit and/or counseling patient: Coding Level of Care Code 46499 Subseq Hosp Care Lvl 3 Diagnoses Hypertension I10 Type 2 diabetes mellitus with microalbuminuria, with long-term current use of insulin E11.29; R80.9; Z79.4 Hypercholesteremia E78.00 Acute on chronic diastolic (congestive) heart failure I50.33 CAD (coronary artery disease) I25.10 Pleural effusion J90 DVT prophylaxis Z29.9 Pulmonary nodule 1 cm or greater in diameter R91.1
--- NOTE | 2021-07-30 16:41 | Pulmonology Progress Note ---
Date of Service July 30, 2021 Assessment & Plan (1) SOB (shortness of breath): (2) Acute on chronic diastolic (congestive) heart failure: (3) Pleural effusion: (4) Atelectasis of both lungs: Plan: Impression: 80-year-old male admitted with shortness of breath. He is found to have bilateral small pleural effusions and has been initiated on diuretics. His venous blood gas demonstrated an elevated CO2 of unclear etiology. He does have basilar atelectasis and likely has significant shunt fraction especially if he is lying supine in bed. Recommendations: 1. Pleural effusions: Likely secondary to underlying diastolic CHF. Recommend continued diuresis. 2. Hypoxia secondary to atelectasis and diastolic heart failure. Continue incentive spirometry and out of bed to chair. Vest therapy 4 times daily and hypertonic saline BID ordered to promote mucociliary clearance and improve atelectasis. 3. Groundglass opacity in the right upper lobe 1.8x1.4 cm: Repeat CT chest in 2 to 3 months as an outpatient. No indication for biopsy at this time. Patient has a prior history of tobacco abuse. Pulmonary will continue to follow. Thank you for the consult. Admission and Anticipated Discharge Date Admission Date: July 28, 2021 Subjective Patient seen and examined this morning. He denies any dyspnea. No chest pain. Lying in bed. Review of Systems Review of Systems: All systems reviewed & are unremarkable except as noted in HPI & below Physical Exam Constitutional: WD/WN, vitals as above Neck: trachea midline, no thyromegaly Respiratory: normal respiratory effort; no respiratory distress and no labored breathing Decreased breath sounds at the bilateral bases. No wheezing Cardiovascular: RRR, no murmur, no edema Gastrointestinal (Abdomen): normal bowel sounds, soft, nontender, no hepatosplenomegaly Musculoskeletal: Extremities: extremities normal to inspection Skin: no rashes, warm and dry Neurologic: Nonfocal exam Lymphatic: no cervical lymphadenopathy Results & Data Results & Data ([facility]) Vital Signs (Past 12 Hours) Vital Signs Temp Pulse Pulse Resp BP Pulse Ox 07/30/21 15:47 98.1 F 67 16 90/49 L 90 07/30/21 15:00 69 07/30/21 13:09 65 19 93 07/30/21 11:04 98.1 F 70 18 94/52 L 91 10/25/21 08:00 69 07/30/21 07:59 97.9 F 67 18 96/50 L 92 07/30/21 07:20 67 19 90 07/30/21 06:17 70 22 101/49 L 90 07/30/21 04:51 67 PG Care Time/CCT Total # of Minutes Spent Total Time Spent with Patient: Total time spent is greater than 50% in coordination of care (as documented) at patient's floor/unit and/or counseling patient: Coding Level of Care Code 36438 Subseq Hosp Care Lvl 3 Diagnoses SOB (shortness of breath) R06.02 Acute on chronic diastolic (congestive) heart failure I50.33 Pleural effusion J90 Atelectasis of both lungs J98.11
[2021-07-30] MEDS: SODIUM CHLOR 7% 4 ML NEB NEB SCH (19:20)
[2021-07-30] MEDS: GABAPENTIN 100 MG CAP PO SCH (20:14)
[2021-07-30] MEDS: ADVANCED PROBIOTIC 1250 MG CAPSULE PO SCH (20:15)
[2021-07-30] MEDS: INSULIN GLARGINE SOLOSTAR 100 UNITS/ML 3 ML PEN SQ SCH (21:44)
[2021-07-31 06:04] LABS: Hemoglobin 11.7 g/dL (14.0-18.0); Mean Corpuscular Hemoglobin 28.9 pg (25-34); Mean Corpuscular Hgb Conc 31.6 g/dL (32-36); Mean Corpuscular Volume 91.4 fL (80-100); Mean Platelet Volume 11.9 fL (7.4-10.4); Platelet Count 167 K/uL (130-400); RDW Standard Deviation 46.8 fL (36.4-46.3); Red Blood Count 4.05 M/uL (4.7-6.1); White Blood Count 8.74 K/uL (4.8-10.8)
[2021-07-31 06:36] LABS: BUN Creatinine Ratio 12.1 (10-20); Calcium 8.8 mg/dl (8.5-10.1); Est GFR (African American) 49.1 ml/min; Est GFR (Non-African American) 42.4 ml/min; Potassium 4.2 mmol/L (3.5-5.1)
[2021-07-31] MEDS: LEVALBUTEROL HCL 1.25 MG/3 ML NEB NEB SCH ×4 (07:17→19:58)
[2021-07-31] MEDS: SODIUM CHLOR 7% 4 ML NEB NEB SCH ×2 (07:17→19:59)
[2021-07-31] MEDS: FUROSEMIDE 40 MG in SYRINGE 0 ML IV SCH (08:00)
[2021-07-31] MEDS: OMEGA-3 (PURIFIED FISH OIL) 1 GM CAP PO SCH (08:01)
[2021-07-31] MEDS: ISOSORBIDE MONO EXTENDED REL 60 MG TABCR PO SCH (08:01)
[2021-07-31] MEDS: ATORVASTATIN 10 MG TAB PO SCH (08:01)
[2021-07-31] MEDS: VITAMIN B COMPLEX TAB PO SCH (08:01)
[2021-07-31] MEDS: RANOLAZINE 500 MG ER TAB PO SCH ×2 (08:01→20:37)
[2021-07-31] MEDS: METOPROLOL TARTRATE 50 MG TAB PO SCH ×2 (08:01→20:37)
[2021-07-31] MEDS: PANTOprazole 40 MG TAB PO SCH (08:02)
[2021-07-31] MEDS: INSULIN ASPART 100 UNITS/ML 3 ML PEN SC SCH ×4 (08:02→20:33)
[2021-07-31] MEDS ORDERED: amLODIPine BESYLATE 5 MG TAB PO SCH (09:00)
--- NOTE | 2021-07-31 09:13 | XRay Report ---
XR chest 2V PA/lateral HISTORY: Shortness of breath. COMPARISON: Chest 07/28/2021. FINDINGS: No pneumothorax. The heart remains mildly enlarged. There are small bilateral pleural effus ions and bibasilar densities. The pulmonary edema has almost completely resolved. Prior cholecystecto my. No new focal lung consolidations. IMPRESSION: 1. Near-complete resolution of the pulmonary edema. 2. Small bilateral pleural effusions and bibasilar densities persist. ACT 112: Negative or not required by law. Electronically signed by: Sony White M.D. 07/31/2021 9:12 AM
--- NOTE | 2021-07-31 10:30 | Cardiology Progress Note ---
Date of Service July 31, 2021 Assessment & Plan (1) Acute on chronic diastolic (congestive) heart failure: (2) Hypertension: (3) Hyperkalemia: (4) Type 2 diabetes mellitus with microalbuminuria, with long-term current use of insulin: (5) CAD (coronary artery disease): (6) Chronic bundle branch block: Plan: Presentation on 07/28/2021 with acute dyspnea and wheezing, attributed to acute decompensated diastolic congestive heart failure I/O's negative 4,819 mL's overall, with resolution of presenting symptoms Chest x-ray this morning reveals near-complete resolution of the pulmonary edema with persistent small bilateral pleural effusions and bibasilar densities Continue IV diuresis today, switching to oral furosemide in the morning of 08/01 Increase activity I attempted to update daughter Rosi ([phone]); generic message left to return my telephone call Admission and Anticipated Discharge Date Admission Date: July 28, 2021 Supervising Physician Co-Signing Physician Notes I have seen and examined the patient. I reviewed the medical record and discussed the case with Mr. Alonso. I agree with the plan as outlined above. The patient currently is comfortable and feels improved. Subjective Patient seen and examined. Chart, medications, and telemetry reviewed. No complaints. Feels back to baseline/normal. Denies cough, shortness of breath, orthopnea, or wheezing. No chest pain, palpitations, PND, or peripheral edema, dizziness, or syncope. I/O's negative 4,819 mL's overall Weight: 90.6 kg -> 86.4 kg BNP notably normal at 682 pg/mL on 07/29 TTE on 07/28 revealed normal LV size and function, moderate concentric LVH, EF 60-65%, abnormal septal wall motion, mild aortic sclerosis without stenosis. Telemetry: Sinus in the 60-70's with an occasional PVC. No significant arrhythmias. Review of Systems Review of Systems: Complete Review of Systems is as stated above, negative, or noncontributory. Physical Exam Physical Exam: General: A&Ox3. NAD. HENT: Normocephalic. Atraumatic. Eyes: PER. Conjunctiva pink, sclera clear. Neck: Bilateral carotid bruits. No JVD. Heart: RRR. Systolic ejection murmur. + Gallop. No rub. PMI is nondisplaced. Lungs: Right basilar rales. Decreased/absent breath sounds at the bases. No wheeze. Abdomen: +BS. Soft. Nontender. No masses or organomegaly. Extremities: No clubbing, cyanosis, or edema. Limited neurological examination is without focal deficits. Pulses: radial=2/4, posterior tibial=2/4. Results & Data ([facility]) Vital Signs (Past 12 Hours) Vital Signs Temp Pulse Pulse Resp BP Pulse Ox 07/31/21 08:00 69 07/31/21 07:18 74 18 91 07/31/21 04:38 37.5 C 71 18 108/41 L 93 07/31/21 00:02 70 20 92 07/30/21 23:25 37.2 C 67 18 102/47 L 91 07/30/21 23:00 65 Laboratory Results Laboratory Results - last 24 hr 07/30/21 07/30/21 07/30/21 11:11 16:23 21:42 WBC RBC Hgb Hct MCV MCH MCHC RDW Std Deviation RDW Coeff of Zully Plt Count MPV Sodium Potassium Chloride Carbon Dioxide Anion Gap BUN Creatinine Est Cr Clr Drug Dosing Est GFR ( Amer) Est GFR (Non-Af Amer) BUN/Creatinine Ratio Glucose POC Glucose 181 H 156 H 214 H Calcium Magnesium 07/31/21 07/31/21 07/31/21 05:30 05:30 07:08 WBC 8.74 RBC 4.05 L Hgb 11.7 L Hct 37.0 L MCV 91.4 MCH 28.9 MCHC 31.6 L RDW Std Deviation 46.8 H RDW Coeff of Zully 14.0 Plt Count 167 MPV 11.9 H Sodium 138 Potassium 4.2 Chloride 102 Carbon Dioxide 33 H Anion Gap 3.0 BUN 18 Creatinine 1.51 H Est Cr Clr Drug Dosing 37.0 Est GFR ( Amer) 49.1 Est GFR (Non-Af Amer) 42.4 BUN/Creatinine Ratio 12.1 Glucose 98 POC Glucose 100 H Calcium 8.8 Magnesium 2.0
--- NOTE | 2021-07-31 12:28 | Hospitalist Progress Note ---
Date of Service July 31, 2021 Assessment & Plan (1) Acute on chronic diastolic (congestive) heart failure: Plan: Echo on 07/28 showed preserved EF, concentric LVH raising concern for acute HFpEF. - Seen by cardiology; continue furosemide 40 mg IV daily for diuresis. -> Net negative 5L today. Weight down about 4 kg as well, so this is consistent. Near baseline weight and honestly, does not appear volume overloaded at this time. - Will order NM perfusion scan to r/o PE and LE Dopplers to r/o DVT. I am concerned that he still needs 7L despite his CXR now clear and his exam indicating euvolemia. (2) Pleural effusion: Plan: Bilateral pleural effusions noted on CT chest on 07/28. - Seen by Dr. Perez while inpatient. No immediate plan for thoracentesis with hope that they will improve/resolve with diuresis. (3) CAD (coronary artery disease): Plan: No chest pain or acute issues. Follows with [facility]. - Continue home ASA/Plavix, beta-cesar, Imdur (4) Hypertension: Plan: BP is presently 95/50. - Continue metoprolol, isosorbide - Reduced amlodipine to daily on 07/30; stop all-together for now. (5) Type 2 diabetes mellitus with microalbuminuria, with long-term current use of insulin: Plan: A1c was 7.5% in 06/2021. - Hold oral meds - Sliding scale insulin -> 100 - 200 in last 24 hours. (6) Hypercholesteremia: Plan: - Continue atorvastatin (7) Pulmonary nodule 1 cm or greater in diameter: Plan: 1.8 x 1.4 cm subpleural groundglass nodule within the right upper lobe. Concern for infection vs. malignancy. - Will need repeat CT chest in 09/2021 or 10/2021. (8) DVT prophylaxis: Plan: Heparin 5,000 units SQ Q12h Admission and Anticipated Discharge Date Admission Date: July 28, 2021 Subjective Doing well today. Reports less shortness of breath. Reports no fevers/chills, chest pain, abdominal pain, nausea, or vomiting. Physical Exam Constitutional: WD/WN, vitals as above Eyes: EOM intact bilaterally; no conjunctival abnormality ENMT: external ear and nose normal, oropharynx normal Neck: trachea midline, no thyromegaly normal visual inspection Respiratory: normal respiratory effort, lungs clear to auscultation no respiratory distress Cardiovascular: RRR, no murmur, no edema Gastrointestinal (Abdomen): Inspection/Auscultation: abdomen normal to inspection; abdomen not distended Musculoskeletal: no cyanosis or clubbing, extremities motor strength 5/5 Skin: no rashes, warm and dry Neurologic: moves all extremities and awake Psychiatric: Orientation: alert, oriented to person and cooperative Results & Data Results & Data ([facility]) Vital Signs (Past 12 Hours) Vital Signs Temp Pulse Pulse Resp BP Pulse Ox 07/31/21 11:09 36.7 C 84 20 96/39 L 90 07/31/21 08:00 36.8 C 69 73 20 121/58 L 96 07/31/21 07:18 74 18 91 07/31/21 04:38 37.5 C 71 18 108/41 L 93 PG Care Time/CCT Total # of Minutes Spent Total Time Spent with Patient: Total time spent is greater than 50% in coordination of care (as documented) at patient's floor/unit and/or counseling patient: Coding Level of Care Code 27553 Subseq Hosp Care Lvl 3 Diagnoses Acute on chronic diastolic (congestive) heart failure I50.33 Pleural effusion J90 CAD (coronary artery disease) I25.10 Hypertension I10 Type 2 diabetes mellitus with microalbuminuria, with long-term current use of insulin E11.29; R80.9; Z79.4 Hypercholesteremia E78.00 Pulmonary nodule 1 cm or greater in diameter R91.1 DVT prophylaxis Z29.9
--- NOTE | 2021-07-31 14:03 | Pulmonology Progress Note ---
Date of Service July 31, 2021 Assessment & Plan (1) SOB (shortness of breath): (2) Acute on chronic diastolic (congestive) heart failure: (3) Pleural effusion: (4) Atelectasis of both lungs: Plan: Impression: 80-year-old male admitted with shortness of breath. He is found to have bilateral small pleural effusions and has been initiated on diuretics. His venous blood gas demonstrated an elevated CO2 of unclear etiology. He does have basilar atelectasis and likely has significant shunt fraction especially if he is lying supine in bed. Recommendations: 1. Pleural effusions: Chest x-ray appears significantly improved compared to 07/28/2021. Small bilateral effusions remain. I do not think that the effusions are contributing significantly to the hypoxia. 2. Hypoxia secondary to atelectasis and diastolic heart failure. Continue incentive spirometry and out of bed to chair. Vest therapy 4 times daily and hypertonic saline BID ordered to promote mucociliary clearance and improve atelectasis. Discussed with nursing regarding getting him out of bed to a chair. I am also ordering a ventilation/perfusion study to evaluate for pulmonary embolism. He has an ELI and there is a relative contraindication for a CT chest with contrast. CT chest from 07/28/2021 was without contrast. Pulmonary edema, bilateral effusions and compressive atelectasis was noted. 3. Groundglass opacity in the right upper lobe 1.8x1.4 cm: Repeat CT chest in 2 to 3 months as an outpatient. No indication for biopsy at this time. Patient has a prior history of tobacco abuse. Pulmonary will continue to follow. Thank you for the consult. Admission and Anticipated Discharge Date Admission Date: July 28, 2021 Subjective Patient seen and examined. Denies any subjective dyspnea. No chest pain. Feels better than yesterday. Has been largely sedentary today. Review of Systems Review of Systems: All systems reviewed & are unremarkable except as noted in HPI & below Physical Exam Constitutional: WD/WN, vitals as above Neck: trachea midline, no thyromegaly Respiratory: normal respiratory effort; no respiratory distress and no labored breathing Decreased breath sounds at the bilateral bases. No wheezing Cardiovascular: RRR, no murmur, no edema Gastrointestinal (Abdomen): normal bowel sounds, soft, nontender, no hepatosplenomegaly Musculoskeletal: Extremities: extremities normal to inspection Skin: no rashes, warm and dry Neurologic: Nonfocal exam Lymphatic: no cervical lymphadenopathy Results & Data Results & Data ([facility]) Vital Signs (Past 12 Hours) Vital Signs Temp Pulse Pulse Resp BP Pulse Ox 07/31/21 12:49 71 18 89 L 07/31/21 11:09 98.1 F 84 20 96/39 L 90 07/31/21 08:00 98.2 F 69 73 20 121/58 L 96 07/31/21 07:18 74 18 91 07/31/21 04:38 99.5 F 71 18 108/41 L 93 PG Care Time/CCT Total # of Minutes Spent Total Time Spent with Patient: Total time spent is greater than 50% in coordination of care (as documented) at patient's floor/unit and/or counseling patient: Coding Level of Care Code 61748 Subseq Hosp Care Lvl 3 Diagnoses SOB (shortness of breath) R06.02 Acute on chronic diastolic (congestive) heart failure I50.33 Pleural effusion J90 Atelectasis of both lungs J98.11
--- NOTE | 2021-07-31 15:38 | Nuclear Medicine Report ---
NM pul perfusion CLINICAL HISTORY: Shortness of breath. Evaluate for evidence of pulmonary embolus. COMPARISON STUDY: Chest CT July 28, 2021. Chest CT of July 31, 2021. TECHNIQUE: 5.4 mCi of technetium 99m MAA was injected IV at 3:10 PM on July 31, 2021. Following in jection, imaging of the chest was performed in multiple projections. Ventilation imaging could not be performed due to Covid restrictions. FINDINGS: No segmental defects are identified on this examination. There are no areas of abnormal rad iotracer uptake on this study. Exam is compromised given lack of ventilation imaging but this study i s considered low probability for pulmonary embolus. IMPRESSION: Low probability for pulmonary embolus. ACT 112: Negative or not required by law. Electronically signed by: Adrian Live M.D. 07/31/2021 3:37 PM
--- NOTE | 2021-07-31 17:50 | Ultrasound Report ---
BILATERAL LOWER EXTREMITY VENOUS DOPPLER HISTORY: Acute pain and swelling of the lower legs Hypoxemia, concern for VTE COMPARISON STUDY: None. FINDINGS: There is normal compressibility, flow, and augmentation within the bilateral lower extremit y deep venous systems. IMPRESSION: No DVT within the right or left lower extremity. ACT 112: Negative or not required by law. Electronically signed by: Yevgeniy Mares M.D. 07/31/2021 5:49 PM
[2021-07-31] MEDS: INSULIN GLARGINE SOLOSTAR 100 UNITS/ML 3 ML PEN SQ SCH (20:33)
[2021-07-31] MEDS: ADVANCED PROBIOTIC 1250 MG CAPSULE PO SCH (20:37)
[2021-07-31] MEDS: GABAPENTIN 100 MG CAP PO SCH (20:37)
[2021-08-01] MEDS: LEVALBUTEROL HCL 1.25 MG/3 ML NEB NEB SCH ×4 (01:08→19:10)
[2021-08-01] MEDS: SODIUM CHLOR 7% 4 ML NEB NEB SCH ×2 (07:08→19:10)
[2021-08-01] MEDS: OMEGA-3 (PURIFIED FISH OIL) 1 GM CAP PO SCH (07:33)
[2021-08-01] MEDS: ISOSORBIDE MONO EXTENDED REL 60 MG TABCR PO SCH (07:33)
[2021-08-01] MEDS: RANOLAZINE 500 MG ER TAB PO SCH ×2 (07:33→20:28)
[2021-08-01] MEDS: VITAMIN B COMPLEX TAB PO SCH (07:33)
[2021-08-01] MEDS: METOPROLOL TARTRATE 50 MG TAB PO SCH ×2 (07:33→20:28)
[2021-08-01 07:34] LABS: Hematocrit (blood only) 38.2 % (42-52); Hemoglobin 12.2 g/dL (14.0-18.0); Mean Corpuscular Hemoglobin 29.5 pg (25-34); Mean Corpuscular Hgb Conc 31.9 g/dL (32-36); Mean Corpuscular Volume 92.3 fL (80-100); Mean Platelet Volume 11.8 fL (7.4-10.4); Platelet Count 179 K/uL (130-400); RDW Coefficient of Variation 14.1 % (11.5-14.5); RDW Standard Deviation 47.6 fL (36.4-46.3); Red Blood Count 4.14 M/uL (4.7-6.1); White Blood Count 10.39 K/uL (4.8-10.8)
[2021-08-01] MEDS: FUROSEMIDE 40 MG TAB PO SCH (07:34)
[2021-08-01] MEDS: PANTOprazole 40 MG TAB PO SCH (07:34)
[2021-08-01] MEDS: ATORVASTATIN 10 MG TAB PO SCH (07:34)
[2021-08-01 08:07] LABS: BUN Creatinine Ratio 12.2 (10-20); Creatinine Clr Calc Pharmacy 40.1 ml/min; Est GFR (African American) 54.8 ml/min; Est GFR (Non-African American) 47.3 ml/min; Potassium 4.2 mmol/L (3.5-5.1)
[2021-08-01] MEDS: INSULIN ASPART 100 UNITS/ML 3 ML PEN SC SCH ×4 (08:16→20:20)
[2021-08-01] MEDS ORDERED: FUROSEMIDE 40 MG/4 ML VIAL IV SCH (09:00)
--- NOTE | 2021-08-01 10:17 | Cardiology Progress Note ---
Date of Service August 01, 2021 Assessment & Plan (1) Acute on chronic diastolic (congestive) heart failure: (2) Hypertension: (3) Hyperkalemia: (4) Type 2 diabetes mellitus with microalbuminuria, with long-term current use of insulin: (5) CAD (coronary artery disease): (6) Chronic bundle branch block: (7) Hypoxemia: Plan: Presentation on 07/28/2021 with acute dyspnea and wheezing, attributed to acute decompensated diastolic congestive heart failure. I/O's negative 6,229 mL's overall, with resolution of presenting symptoms. Volume status appears normovolemic. Oral furosemide initiated 08/01/2021. Patient continues to require high flow supplemental oxygen; pulmonary medicine on board. CT of the head requested, RE: transient confusion this morning. Admission and Anticipated Discharge Date Admission Date: July 28, 2021 Supervising Physician Co-Signing Physician Notes I have seen and examined the patient. I have reviewed the medical record and discussed the case with Mr. Alonso. I agree with the plan as outlined above. Subjective Patient seen and examined. Chart, medications, and telemetry reviewed. Notes transient confused this morning at 7 AM. Still requiring high flow nasal cannula. Denies chest pain, worsening dyspnea, palpitations, orthopnea, PND, lower exctremity peripheral edema, headache, dizziness, visual changes, unilateral weakness, subjective fever or chills. Telemetry: Sinus in the 50's - 60's bpm range. No significant arrhythmia. I/O's negative 6,229 mL's overall. Weight: 90.6 kg -> 86.2 kg BNP notably normal at 682 pg/mL on 07/29 TTE on 07/28/2021 revealed normal LV size and function, moderate concentric LVH, EF 60-65%, abnormal septal wall motion, mild aortic sclerosis without stenosis. Review of Systems Review of Systems: Complete Review of Systems is as stated above, negative, or noncontributory. Physical Exam Physical Exam: General: A&Ox3. NAD. HENT: Normocephalic. Atraumatic. Eyes: PER. Conjunctiva pink, sclera clear. Neck: Bilateral carotid bruits. No JVD. Heart: RRR. Systolic ejection murmur. + Gallop. No rub. PMI is nondisplaced. Lungs: Decreased/absent breath sounds at the bases. Clear. Abdomen: +BS. Soft. Nontender. No masses or organomegaly. Extremities: No clubbing, cyanosis, or edema. Limited neurological examination is without focal deficits. Pulses: radial=2/4, posterior tibial=2/4. Results & Data ([facility]) Vital Signs (Past 12 Hours) Vital Signs Temp Pulse Pulse Resp BP Pulse Ox Pulse Ox 08/01/21 10:00 92 08/01/21 08:00 67 08/01/21 07:09 86 18 90 08/01/21 06:24 36.9 C 79 19 119/58 L 92 08/01/21 03:27 36.9 C 64 19 117/64 91 08/01/21 00:07 67 07/31/21 22:52 36.7 C 66 19 105/51 L 93 Laboratory Results Laboratory Results - last 24 hr 07/30/21 07/31/21 07/31/21 20:39 11:08 16:14 WBC RBC Hgb Hct MCV MCH MCHC RDW Std Deviation RDW Coeff of Zully Plt Count MPV Sodium Potassium Chloride Carbon Dioxide Anion Gap BUN Creatinine Est Cr Clr Drug Dosing Est GFR ( Amer) Est GFR (Non-Af Amer) BUN/Creatinine Ratio Glucose POC Glucose 193 H 163 H 145 H Calcium Magnesium 07/31/21 08/01/21 08/01/21 20:20 07:06 07:13 WBC 10.39 RBC 4.14 L Hgb 12.2 L Hct 38.2 L MCV 92.3 MCH 29.5 MCHC 31.9 L RDW Std Deviation 47.6 H RDW Coeff of Zully 14.1 Plt Count 179 MPV 11.8 H Sodium Potassium Chloride Carbon Dioxide Anion Gap BUN Creatinine Est Cr Clr Drug Dosing Est GFR ( Amer) Est GFR (Non-Af Amer) BUN/Creatinine Ratio Glucose POC Glucose 244 H 70 Calcium Magnesium 08/01/21 07:13 WBC RBC Hgb Hct MCV MCH MCHC RDW Std Deviation RDW Coeff of Zully Plt Count MPV Sodium 139 Potassium 4.2 Chloride 103 Carbon Dioxide 33 H Anion Gap 3.0 BUN 17 Creatinine 1.38 Est Cr Clr Drug Dosing 40.1 Est GFR ( Amer) 54.8 Est GFR (Non-Af Amer) 47.3 BUN/Creatinine Ratio 12.2 Glucose 77 POC Glucose Calcium 9.0 Magnesium 2.0
--- NOTE | 2021-08-01 11:45 | CT Scan Report ---
CT OF THE HEAD WITHOUT CONTRAST CLINICAL HISTORY: Confusion. COMPARISON STUDY: Head CT December 01, 2012. CT DOSE: 788.63 mGycm TECHNIQUE: Helical axial images of the head were obtained without IV contrast. Automated exposure con trol was utilized for the study. A dose lowering technique was utilized adhering to the principles o f ALARA. FINDINGS: No acute intracranial hemorrhage, midline shift or mass effect is present. Mild ventricular dilatation is unchanged and likely due to central atrophy. White matter hypodensity suggests small v essel disease. Encephalomalacia within the right frontal lobe is unchanged. The basal cisterns are pa tent. No extra-axial collections are present. There are no findings to suggest acute dural sinus thro mbosis or acute territorial infarct. No significant calvarial abnormalities are present. Visualized p ortions of the sinuses and mastoid air cells are clear. IMPRESSION: No acute intracranial findings. No change in appearance of the brain. ACT 112: Negative or not required by law. Electronically signed by: Adrian Live M.D. 08/01/2021 11:43 AM
--- NOTE | 2021-08-01 13:13 | XCELERA ---
[id number]
--- NOTE | 2021-08-01 14:15 | Hospitalist Progress Note ---
Date of Service August 01, 2021 Assessment & Plan (1) Acute on chronic diastolic (congestive) heart failure: Plan: Echo on 07/28 showed preserved EF, concentric LVH raising concern for acute HFpEF. - Seen by cardiology; continue furosemide 40 mg IV daily for diuresis. -> Net negative 6.3L today. Weight down about 4 kg as well, so this is consistent. Near baseline weight and honestly, does not appear volume overloaded at this time. - NM perfusion scan on 07/31 was "low probability" for PE. - Still needing 6-7L NC O2 which just does not correlated with his cardiopulmonary status as I see it. His CT chest looks fairly good, and likely better now that he's been diuresed. (2) Pleural effusion: Plan: Bilateral pleural effusions noted on CT chest on 07/28. - Seen by Dr. Perez while inpatient. No immediate plan for thoracentesis with hope that they will improve/resolve with diuresis. (3) CAD (coronary artery disease): Plan: No chest pain or acute issues. Follows with [facility] cardiology. - Continue home ASA/Plavix, beta-cesar, Imdur (4) Hypertension: Plan: BP is presently 115/60. - Continue metoprolol, isosorbide - Reduced amlodipine to daily on 07/30; stop all-together for now. (5) Type 2 diabetes mellitus with microalbuminuria, with long-term current use of insulin: Plan: A1c was 7.5% in 06/2021. - Hold oral meds - Sliding scale insulin -> 70 - 150 in last 24 hours. (6) Hypercholesteremia: Plan: - Continue atorvastatin (7) Pulmonary nodule 1 cm or greater in diameter: Plan: 1.8 x 1.4 cm subpleural groundglass nodule within the right upper lobe. Concern for infection vs. malignancy. - Will need repeat CT chest in 09/2021 or 10/2021. (8) DVT prophylaxis: Plan: Heparin 5,000 units SQ Q12h Admission and Anticipated Discharge Date Admission Date: July 28, 2021 Subjective Doing well today. Reports minimal shortness of breath. Reports no fevers/chills, chest pain, abdominal pain, nausea, or vomiting. Physical Exam Constitutional: WD/WN, vitals as above Eyes: EOM intact bilaterally; no conjunctival abnormality ENMT: external ear and nose normal, oropharynx normal Neck: trachea midline, no thyromegaly normal visual inspection Respiratory: normal respiratory effort, lungs clear to auscultation no respiratory distress Cardiovascular: RRR, no murmur, no edema Gastrointestinal (Abdomen): Inspection/Auscultation: abdomen normal to inspection; abdomen not distended Musculoskeletal: no cyanosis or clubbing, extremities motor strength 5/5 Skin: no rashes, warm and dry Neurologic: moves all extremities and awake Psychiatric: Orientation: alert, oriented to person and cooperative Results & Data Results & Data ([facility]) Vital Signs (Past 12 Hours) Vital Signs Temp Pulse Pulse Resp BP Pulse Ox Pulse Ox 08/01/21 13:05 64 18 91 08/01/21 11:16 36.7 C 58 L 18 114/59 L 93 08/01/21 10:00 92 08/01/21 08:00 67 08/01/21 07:09 86 18 90 08/01/21 06:24 36.9 C 79 19 119/58 L 92 08/01/21 03:27 36.9 C 64 19 117/64 91 PG Care Time/CCT Total # of Minutes Spent Total Time Spent with Patient: Total time spent is greater than 50% in coordination of care (as documented) at patient's floor/unit and/or counseling patient: Coding Level of Care Code 42740 Subseq Hosp Care Lvl 3 Diagnoses Acute on chronic diastolic (congestive) heart failure I50.33 Pleural effusion J90 CAD (coronary artery disease) I25.10 Hypertension I10 Type 2 diabetes mellitus with microalbuminuria, with long-term current use of insulin E11.29; R80.9; Z79.4 Hypercholesteremia E78.00 Pulmonary nodule 1 cm or greater in diameter R91.1 DVT prophylaxis Z29.9
[2021-08-01] MEDS: GABAPENTIN 100 MG CAP PO SCH (20:27)
[2021-08-01] MEDS: ADVANCED PROBIOTIC 1250 MG CAPSULE PO SCH (20:27)
[2021-08-01] MEDS: INSULIN GLARGINE SOLOSTAR 100 UNITS/ML 3 ML PEN SQ SCH (20:38)
[2021-08-01] MEDS: HEPARIN SOD 5,000 UNIT/0.5 ML VIAL SQ SCH (21:20)
[2021-08-02 06:07] LABS: Hematocrit (blood only) 37.5 % (42-52); Hemoglobin 12.1 g/dL (14.0-18.0); Mean Corpuscular Hemoglobin 29.6 pg (25-34); Mean Corpuscular Hgb Conc 32.3 g/dL (32-36); Mean Corpuscular Volume 91.7 fL (80-100); Mean Platelet Volume 11.7 fL (7.4-10.4); Platelet Count 161 K/uL (130-400); RDW Standard Deviation 46.9 fL (36.4-46.3); Red Blood Count 4.09 M/uL (4.7-6.1); White Blood Count 8.15 K/uL (4.8-10.8)
[2021-08-02 06:40] LABS: BUN Creatinine Ratio 12.8 (10-20); Calcium 9.3 mg/dl (8.5-10.1); Est GFR (African American) 52.5 ml/min; Est GFR (Non-African American) 45.3 ml/min; Potassium 4.1 mmol/L (3.5-5.1)
[2021-08-02] MEDS: LEVALBUTEROL HCL 1.25 MG/3 ML NEB NEB SCH ×4 (07:10→19:05)
[2021-08-02] MEDS: SODIUM CHLOR 7% 4 ML NEB NEB SCH ×2 (07:10→19:15)
[2021-08-02] MEDS: INSULIN ASPART 100 UNITS/ML 3 ML PEN SC SCH ×5 (08:02→21:19)
[2021-08-02] MEDS: FUROSEMIDE 40 MG TAB PO SCH (08:03)
[2021-08-02] MEDS: OMEGA-3 (PURIFIED FISH OIL) 1 GM CAP PO SCH (08:03)
[2021-08-02] MEDS: ATORVASTATIN 10 MG TAB PO SCH (08:03)
[2021-08-02] MEDS: HEPARIN SOD 5,000 UNIT/0.5 ML VIAL SQ SCH ×2 (08:04→21:18)
[2021-08-02] MEDS: VITAMIN B COMPLEX TAB PO SCH (08:05)
[2021-08-02] MEDS: RANOLAZINE 500 MG ER TAB PO SCH ×2 (08:05→22:10)
[2021-08-02] MEDS: METOPROLOL TARTRATE 50 MG TAB PO SCH ×2 (08:05→22:10)
[2021-08-02] MEDS: PANTOprazole 40 MG TAB PO SCH (08:05)
[2021-08-02] MEDS: ISOSORBIDE MONO EXTENDED REL 60 MG TABCR PO SCH (08:05)
--- NOTE | 2021-08-02 10:08 | Cardiology Progress Note ---
Date of Service August 02, 2021 Assessment & Plan (1) Acute on chronic diastolic (congestive) heart failure: (2) Hypertension: (3) Hyperkalemia: (4) Type 2 diabetes mellitus with microalbuminuria, with long-term current use of insulin: (5) CAD (coronary artery disease): (6) Chronic bundle branch block: (7) Hypoxemia: Plan: Presentation on 07/28/2021 with acute dyspnea and wheezing, attributed to acute decompensated diastolic congestive heart failure. Administration of IV furosemide and supplemental oxygen resolved presenting complaints. Volume status is normovolemic. Oral furosemide initiated 08/01/2021. Patient comfortable. Unfortunately, patient continues to require high flow supplemental oxygen for unclear reason(s). CT scan of the chest pending along with repeat Covid testing. Continue the current cardiac regimen as prescribed. Admission and Anticipated Discharge Date Admission Date: July 28, 2021 Supervising Physician Co-Signing Physician Notes I have seen and examined the patient. I have reviewed the medical record and discussed the case with Mr. Alonso. I feel the patient is euvolemic after diuresis. Unfortunately, he continues to have hypoxia. Pulmonary saw him earlier in the admission and have asked them to come around again to reevaluate him. Subjective Patient seen and examined. Chart, medications, and telemetry reviewed. Still requiring high flow nasal cannula. Feels well. Denies chest pain, dyspnea above norm, palpitations, orthopnea, PND, abdominal bloating, penile/scrotal edema, or lower extremity edema. Telemetry: Sinus in the 60's. No significant arrhythmia. I/O's negative 6,729 mL's overall. BNP notably normal on 07/28/2021 (644 pg/mL), 07/29/2021 (682 pg/mL), and on 08/02/2021 (289 pg/mL) July 28, 2021 [facility] Normal LV size and function. Moderate concentric LVH. EF 60-65%. Abnormal septal wall motion. Mild aortic sclerosis without stenosis. August 01, 2021 [facility] Normal LV size and function. LVEF 55-60%. Abnormal septal motion consistent with conduction abnormality. Normal RV size and function. Negative saline contrast study for interatrial shunt. No doppler evidence of ASD/VSD. Compared with prior study on 07/28/2021: No significant changes. Review of Systems Review of Systems: Complete Review of Systems is as stated above, negative, or noncontributory. Physical Exam Physical Exam: General: A&Ox3. NAD. HENT: Normocephalic. Atraumatic. Eyes: PER. Conjunctiva pink, sclera clear. Neck: Bilateral carotid bruits. No JVD. Heart: RRR. Systolic ejection murmur. + Gallop. No rub. PMI is nondisplaced. Lungs: Decreased/absent breath sounds at the bases. Clear. Abdomen: +BS. Soft. Nontender. No masses or organomegaly. Extremities: No clubbing, cyanosis, or edema. Limited neurological examination is without focal deficits. Pulses: radial=2/4, posterior tibial=2/4. Results & Data ([facility]) Vital Signs (Past 12 Hours) Vital Signs Temp Pulse Pulse Resp BP Pulse Ox 08/02/21 07:22 36.7 C 75 20 119/52 L 84 L 08/02/21 07:12 78 16 89 L 08/02/21 03:15 36.8 C 66 20 156/65 H 95 08/02/21 00:00 60 18 93 08/01/21 23:47 36.8 C 74 22 122/51 L 91 08/01/21 22:19 72 Laboratory Results Laboratory Results - last 24 hr 08/01/21 08/01/21 08/01/21 11:12 16:11 20:15 WBC RBC Hgb Hct MCV MCH MCHC RDW Std Deviation RDW Coeff of Zully Plt Count MPV Sodium Potassium Chloride Carbon Dioxide Anion Gap BUN Creatinine Est Cr Clr Drug Dosing Est GFR ( Amer) Est GFR (Non-Af Amer) BUN/Creatinine Ratio Glucose POC Glucose 121 H 99 120 H Calcium Magnesium NT-Pro-B Natriuret Pep Procalcitonin 08/02/21 08/02/21 08/02/21 05:50 05:50 05:50 WBC 8.15 RBC 4.09 L Hgb 12.1 L Hct 37.5 L MCV 91.7 MCH 29.6 MCHC 32.3 RDW Std Deviation 46.9 H RDW Coeff of Zully 14.0 Plt Count 161 MPV 11.7 H Sodium 139 Potassium 4.1 Chloride 104 Carbon Dioxide 32 Anion Gap 4.0 BUN 18 Creatinine 1.43 H Est Cr Clr Drug Dosing 39.0 Est GFR ( Amer) 52.5 Est GFR (Non-Af Amer) 45.3 BUN/Creatinine Ratio 12.8 Glucose 69 L POC Glucose Calcium 9.3 Magnesium 2.0 NT-Pro-B Natriuret Pep 289 Procalcitonin < 0.05 08/02/21 08/02/21 08/02/21 06:48 07:00 07:02 WBC RBC Hgb Hct MCV MCH MCHC RDW Std Deviation RDW Coeff of Zully Plt Count MPV Sodium Potassium Chloride Carbon Dioxide Anion Gap BUN Creatinine Est Cr Clr Drug Dosing Est GFR ( Amer) Est GFR (Non-Af Amer) BUN/Creatinine Ratio Glucose POC Glucose 70 65 L* 63 L* Calcium Magnesium NT-Pro-B Natriuret Pep Procalcitonin 08/02/21 07:25 WBC RBC Hgb Hct MCV MCH MCHC RDW Std Deviation RDW Coeff of Zully Plt Count MPV Sodium Potassium Chloride Carbon Dioxide Anion Gap BUN Creatinine Est Cr Clr Drug Dosing Est GFR ( Amer) Est GFR (Non-Af Amer) BUN/Creatinine Ratio Glucose POC Glucose 87 Calcium Magnesium NT-Pro-B Natriuret Pep Procalcitonin
[2021-08-02] MEDS: ASPIRIN 81 MG ECTAB PO SCH (11:04)
[2021-08-02] MEDS ORDERED: OPTIRAY 320 125ml IV ONE (11:33)
--- NOTE | 2021-08-02 12:02 | CT Scan Report ---
CT angio chest PE protocol CLINICAL HISTORY: PE or pulmonary shunt; refractory hypoxemia TECHNIQUE: Multidetector row helical CT of the chest was performed. Coronal and sagittal reformations were obtained. Automated dose lowering techniques and/or adjustment according to patient size were u tilized for this exam. Comparison: Comparison is made to CT chest 07/28/2021 FINDINGS: Lungs and pleura: There are small bilateral pleural effusions with associated atelectasis versus scar ring. Groundglass opacity is seen in the left upper lobe. Heart and pericardium: Heart size is normal. No pericardial effusion. Vessels: The pulmonary trunk is enlarged measuring 33 mm in diameter. Mediastinum and [place]: Unremarkable. Chest wall and lower neck: Unremarkable. Abdomen: Patient is status post cholecystectomy. Bones: Degenerative changes in the thoracic spine. IMPRESSION: 1. No evidence of pulmonary embolism. 2. Stable small bilateral pleural effusions and right upper lobe groundglass opacity. Correlation wi th prior imaging is recommended if available, otherwise according to Fleischner criteria, a 6-12 charo h follow-up CT can be performed, then if persistent, CT every 2 years until 5 years of total follow-u p. ACT 112: Negative or not required by law. Electronically signed by: Kem Garcia M.D. 08/02/2021 12:00 PM
[2021-08-02 14:09] LABS: Base Excess ABG 3.7 mEq/L (-9-1.8); HCO3 ABG 30 mmol/L (19-24); PCO2 ABG 52 mmHg (35-46); PO2 ABG 47 mmHg (80-95); pH ABG 7.38 (7.35-7.45)
[2021-08-02 14:10] LABS: Allen Test Pos (Pos); Oxygen Saturation ABG 82.4 % (90-95)
--- NOTE | 2021-08-02 14:27 | Hospitalist Progress Note ---
Date of Service August 02, 2021 Assessment & Plan (1) Acute on chronic diastolic (congestive) heart failure: Plan: Echo on 07/28 showed preserved EF, concentric LVH raising concern for acute HFpEF. - Seen by cardiology; continue furosemide 40 mg IV daily for diuresis. -> Net negative 6.3L today. Weight down about 4 kg as well, so this is consistent. Near baseline weight and honestly, does not appear volume overloaded at this time. - NM perfusion scan on 07/31 was "low probability" for PE. - CTA chest on 08/01 showed no PE and stable pleural effusions and nodule. - Repeat Covid on 08/02 was negative. - Still needing 8L NC O2 which just does not correlated with his cardiopulmonary status as I see it. Per respiratory, he does come up nicely with deep breathing. Discussed with pulmonary on 08/01 & 08/02. (2) Pleural effusion: Plan: Bilateral pleural effusions noted on CT chest on 07/28. - Seen by Dr. Perez while inpatient. No immediate plan for thoracentesis with hope that they will improve/resolve with diuresis. (3) CAD (coronary artery disease): Plan: No chest pain or acute issues. Follows with [facility] cardiology. - Continue home ASA/Plavix, beta-cesar, Imdur (4) Hypertension: Plan: BP is presently 150/65. - Continue metoprolol, isosorbide - Reduced amlodipine to daily on 07/30; stopped all-together on 07/31 for continued low BP. (5) Type 2 diabetes mellitus with microalbuminuria, with long-term current use of insulin: Plan: A1c was 7.5% in 06/2021. - Hold oral meds - Sliding scale insulin -> 70 - 150 in last 24 hours. (6) Hypercholesteremia: Plan: - Continue atorvastatin (7) Pulmonary nodule 1 cm or greater in diameter: Plan: 1.8 x 1.4 cm subpleural groundglass nodule within the right upper lobe. Concern for infection vs. malignancy. - Will need repeat CT chest in 09/2021 or 10/2021. (8) DVT prophylaxis: Plan: Heparin 5,000 units SQ Q12h Admission and Anticipated Discharge Date Admission Date: July 28, 2021 Subjective Feels stable today. No major shortness of breath. Reports no fevers/chills, chest pain, shortness of breath, abdominal pain, nausea, or vomiting. Physical Exam Constitutional: WD/WN, vitals as above Eyes: EOM intact bilaterally; no conjunctival abnormality ENMT: external ear and nose normal, oropharynx normal Neck: trachea midline, no thyromegaly normal visual inspection Respiratory: normal respiratory effort, lungs clear to auscultation no respiratory distress Cardiovascular: RRR, no murmur, no edema Gastrointestinal (Abdomen): Inspection/Auscultation: abdomen normal to inspection; abdomen not distended Musculoskeletal: no cyanosis or clubbing, extremities motor strength 5/5 Skin: no rashes, warm and dry Neurologic: moves all extremities and awake Psychiatric: Orientation: alert, oriented to person and cooperative Results & Data Results & Data ([facility]) Vital Signs (Past 12 Hours) Vital Signs Temp Pulse Resp BP Pulse Ox Pulse Ox 08/02/21 12:52 74 20 89 L 08/02/21 10:50 36.8 C 62 19 152/66 H 90 08/02/21 10:00 85 L 08/02/21 07:22 36.7 C 75 20 119/52 L 84 L 08/02/21 07:12 78 16 89 L 08/02/21 03:15 36.8 C 66 20 156/65 H 95 PG Care Time/CCT Total # of Minutes Spent Total Time Spent with Patient: Total time spent is greater than 50% in coordination of care (as documented) at patient's floor/unit and/or counseling patient: Coding Level of Care Code 89151 Subseq Hosp Care Lvl 2 Diagnoses Acute on chronic diastolic (congestive) heart failure I50.33 Pleural effusion J90 CAD (coronary artery disease) I25.10 Hypertension I10 Type 2 diabetes mellitus with microalbuminuria, with long-term current use of insulin E11.29; R80.9; Z79.4 Hypercholesteremia E78.00 Pulmonary nodule 1 cm or greater in diameter R91.1 DVT prophylaxis Z29.9
[2021-08-02] MEDS: methylPREDNISolone 40 MG in SYRINGE 0 ML IV SCH (14:48)
--- NOTE | 2021-08-02 18:55 | Pulmonology Progress Note ---
Date of Service August 02, 2021 Assessment & Plan (1) SOB (shortness of breath): (2) Acute on chronic diastolic (congestive) heart failure: (3) Pleural effusion: (4) Atelectasis of both lungs: (5) Pulmonary nodule 1 cm or greater in diameter: (6) Chronic hypercapnic respiratory failure: Plan: 80-year-old male with a past medical history of tobacco abuse, coronary artery disease, hypertension and type 2 diabetes mellitus presenting to the hospital due to hypoxemia Patient continues to have persistent hypoxemia that has actually worsened today. He underwent a CTA of his chest to evaluate for pulmonary embolism which was negative along with a perfusion study earlier during the hospitalization which was also negative. ABG today did demonstrate an increased AA gradient. He also has evidence of chronic hypercapnic respiratory failure. I suspect he does have an element of chronic obstructive pulmonary disease/obesity hypoventilation syndrome. He will need pulmonary function testing as an outpatient to evaluate for obstructive lung disease such as COPD. 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 His daughter is also present today and notes that they have a parakeet at home. He was also a smoker from the age of 11 to the age of 48. He smoked three quarters of a pack per day. There are increased groundglass opacities noted in the lower lobes along with areas of atelectasis bibasilar on CT chest Small bilateral effusions are seen. There is a groundglass opacity noted in the left upper lobe. Which will need follow-up with a CT chest in 3 to 6 months. He does not have obvious stigmata of interstitial lung disease such as clubbing or crackles noted on physical exam. He is certainly at risk for interstitial lung disease/pneumoconiosis given his occupational history or possible hypersensitivity pneumonitis given the at-home bird exposure (less likely). He is also at risk for obstructive lung disease. I am going to start him empirically on 40 mg IV methylprednisolone to see if he has a clinical response. I suspect that his hypoxemia is multifactorial related to possible diffusion impairment from an interstitial lung disease, intrapulmonary shunt from atelectasis, possible obstructive lung disease, possible obesity hypoventilation syndrome and diastolic heart failure. If his work-up does not prove to be fruitful, we may have to pursue a right heart catheterization to evaluate for extrapulmonary shunt physiology. His echocardiogram with bubble study did not necessarily demonstrate evidence of shunt. Continue the use of incentive spirometry and physical therapy. We will initiate the patient on Breo Ellipta. The patient's daughter was at bedside and I updated her extensively. She was appreciative of my update. I did reiterate to her that I suspect that he may have had chronic lung disease to some degree and possible hypoxemia longer than we have initially thought. Pulmonary will continue to follow. Thank you for the consult. Admission and Anticipated Discharge Date Admission Date: July 28, 2021 Subjective Patient seen and examined. He denies dyspnea. He was desaturating today requiring 13 L of oxygen via nasal cannula. He is currently sitting up in a chair and eating dinner. His daughter is present. He denies any significant cough. He does note that he had a cough as an outpatient. Review of Systems Review of Systems: All systems reviewed & are unremarkable except as noted in HPI & below Physical Exam Constitutional: WD/WN, vitals as above Neck: trachea midline, no thyromegaly Respiratory: normal respiratory effort; no respiratory distress and no labored breathing Decreased breath sounds at the bilateral bases. No wheezing Cardiovascular: RRR, no murmur, no edema Gastrointestinal (Abdomen): normal bowel sounds, soft, nontender, no hepatosplenomegaly Musculoskeletal: Extremities: extremities normal to inspection Skin: no rashes, warm and dry Neurologic: Nonfocal exam Lymphatic: no cervical lymphadenopathy Results & Data Results & Data ([facility]) Vital Signs (Past 12 Hours) Vital Signs Temp Pulse Resp BP Pulse Ox Pulse Ox 08/02/21 15:02 98.2 F 71 18 105/55 L 87 L 08/02/21 12:52 74 20 89 L 08/02/21 10:50 98.2 F 62 19 152/66 H 90 08/02/21 10:00 85 L 08/02/21 07:22 98.1 F 75 20 119/52 L 84 L 08/02/21 07:12 78 16 89 L vital signs, labs and imaging personally reviewed. PG Care Time/CCT Total # of Minutes Spent Total Time Spent with Patient: Total time spent is greater than 50% in coordination of care (as documented) at patient's floor/unit and/or counseling patient: Coding Level of Care Code 11612 Subseq Hosp Care Lvl 3 Diagnoses SOB (shortness of breath) R06.02 Acute on chronic diastolic (congestive) heart failure I50.33 Pleural effusion J90 Atelectasis of both lungs J98.11 Pulmonary nodule 1 cm or greater in diameter R91.1 Chronic hypercapnic respiratory failure J96.12 Time Spent (min) 45
[2021-08-02] MEDS: CLOPIDOGREL BISULFATE 75 MG TAB PO SCH (21:17)
[2021-08-02] MEDS: GABAPENTIN 100 MG CAP PO SCH (21:17)
[2021-08-02] MEDS: FLUTICASONE/VILANTEROL 200/25MCG 14 PUFFS/INHALER INH SCH (21:18)
[2021-08-02] MEDS: ADVANCED PROBIOTIC 1250 MG CAPSULE PO SCH (22:10)
[2021-08-02] MEDS: INSULIN GLARGINE SOLOSTAR 100 UNITS/ML 3 ML PEN SQ SCH (22:11)
[2021-08-03] MEDS: LEVALBUTEROL HCL 1.25 MG/3 ML NEB NEB SCH ×4 (00:35→19:05)
[2021-08-03 06:08] LABS: Hematocrit (blood only) 36.8 % (42-52); Mean Corpuscular Hemoglobin 29.6 pg (25-34); Mean Corpuscular Hgb Conc 32.6 g/dL (32-36); Mean Corpuscular Volume 90.6 fL (80-100); Mean Platelet Volume 12.1 fL (7.4-10.4); Platelet Count 160 K/uL (130-400); RDW Coefficient of Variation 13.8 % (11.5-14.5); Red Blood Count 4.06 M/uL (4.7-6.1); White Blood Count 10.58 K/uL (4.8-10.8)
[2021-08-03 06:43] LABS: BUN Creatinine Ratio 15.5 (10-20); Calcium 9.1 mg/dl (8.5-10.1); Creatinine Clr Calc Pharmacy 34.2 ml/min; Est GFR (African American) 44.8 ml/min; Est GFR (Non-African American) 38.7 ml/min; Magnesium 2.2 mg/dl (1.8-2.4); Potassium 4.7 mmol/L (3.5-5.1)
[2021-08-03] MEDS: SODIUM CHLOR 7% 4 ML NEB NEB SCH ×2 (07:10→19:05)
[2021-08-03] MEDS: INSULIN ASPART 100 UNITS/ML 3 ML PEN SC SCH ×4 (08:12→22:18)
[2021-08-03] MEDS: OMEGA-3 (PURIFIED FISH OIL) 1 GM CAP PO SCH (08:13)
[2021-08-03] MEDS: ASPIRIN 81 MG ECTAB PO SCH (08:13)
[2021-08-03] MEDS: ISOSORBIDE MONO EXTENDED REL 60 MG TABCR PO SCH (08:13)
[2021-08-03] MEDS: methylPREDNISolone 40 MG in SYRINGE 0 ML IV SCH (08:13)
[2021-08-03] MEDS: RANOLAZINE 500 MG ER TAB PO SCH ×2 (08:13→22:14)
[2021-08-03] MEDS: METOPROLOL TARTRATE 50 MG TAB PO SCH ×2 (08:13→22:13)
[2021-08-03] MEDS: VITAMIN B COMPLEX TAB PO SCH (08:13)
[2021-08-03] MEDS: PANTOprazole 40 MG TAB PO SCH (08:14)
[2021-08-03] MEDS: ATORVASTATIN 10 MG TAB PO SCH (08:14)
[2021-08-03] MEDS: FLUTICASONE/VILANTEROL 200/25MCG 14 PUFFS/INHALER INH SCH (08:31)
[2021-08-03] MEDS: FUROSEMIDE 40 MG TAB PO SCH (08:31)
[2021-08-03] MEDS: HEPARIN SOD 5,000 UNIT/0.5 ML VIAL SQ SCH ×2 (08:32→22:15)
[2021-08-03] MEDS ORDERED: NITROGLYCERIN SL 0.4 MG/TAB TAB ONE (09:49)
[2021-08-03] MEDS ORDERED: NITROGLYCERIN SL 0.4 MG/TAB TAB SL ONE (10:00)
--- NOTE | 2021-08-03 10:05 | Cardiology Progress Note ---
Date of Service August 03, 2021 Assessment & Plan (1) Acute on chronic diastolic (congestive) heart failure: (2) Hypertension: (3) Hyperkalemia: (4) Type 2 diabetes mellitus with microalbuminuria, with long-term current use of insulin: (5) CAD (coronary artery disease): (6) Chronic bundle branch block: (7) Hypoxemia: Plan: Initial presentation on 07/28 with acute dyspnea and wheezing attributed to acute decompensated diastolic heart failure. Patient was treated with IV furosemide and supplemental oxygen which resolved presenting complaints. Oxygen has been weaned from 13 L high flow to approximately 8 L high flow. Oral furosemide was initiated on 08/01. Notes significant improvement in his symptoms. Serum creatinine slightly increased from baseline. Sodium slightly low at 135. 1. Patient euvolemic on exam, discontinue oral Lasix Patient continues to require high flow supplemental oxygen for unclear reasons. CT scan showed increased ground glass opacities in the lower lobes-the occupational exposure related per pulmonary. Would recommend aggressive pulmonary interventions. One episode of nonexertional left-sided chest discomfort-relieved after nitroglycerin x1 and approximately 3 minutes. EKG was primarily-there was worsening ST inversion in inferior leads however this has been seen in the past. Per review of patient's outpatient chart he has known chronic stable angina. Discussed with Dr. Wing continue to treat medically at this point. Admission and Anticipated Discharge Date Admission Date: July 28, 2021 Supervising Physician Co-Signing Physician Notes I have seen and examined the patient. I reviewed the medical record and discussed the case with Ms. Brown. The patient's chest pain this morning was relieved very quickly after 1 sublingual nitroglycerin. He does have a history of chronic angina and I would just continue current medical therapy including sublingual nitroglycerin as needed. I have discussed the case with the pulmonary service. I think the patient has significant underlying lung disease which is only recently during this hospital admission come to light. Pulmonary is going to treat the patient more aggressively. Subjective Seen and examined patient. Resting comfortably in bed. Improved breathing status. Now down to 8L high flow o2 via nasal cannula compared to 13 L. He is currently sitting up in bed. No cough. Last evening he was up ambulating in the hallway without any difficulty. Not have to make any stops or rest. No exertional chest pain. Notes that he feels significantly improved compared to yesterday. Able to sleep without difficulty. Does not normally require diuretic therapy at home. Shortly after leaving the room was contacted by nursing noting that the patient experienced a 4/10 left sided chest pain. Occurred at rest, not with activity EKG was obtained showing sinus rhythm with a first-degree AV block and left bundle branch block. T wave inversion is more evident in inferior leads however this was noted previously. Patient was given 1 sublingual nitro which seemed to take the pain away in about 3 minutes. Vital signs were stable. Telemetry overnight showed sinus rhythm in the 70s to 80s I&O: -7.9 L, current weight 87.8 kg Lab work today showed a sodium of 135 potassium 4.7, and a creatinine of 1.63, previously 1.43. BNP yesterday was unremarkable. Echocardiogram showed an LVEF of 55 to 59% with abnormal septal motion consis tent with conduction abnormality-bundle branch block, RV size normal and function. No Doppler evidence of ASD/VSD. Aortic valve sclerosis is mild without stenosis. Review of Systems Review of Systems: All systems reviewed & are unremarkable except as noted in HPI & below Physical Exam Physical Exam: General: No acute distress. A+Ox3. HEENT: Normocephalic. Atraumatic. Conjunctiva and sclera clear. NECK: No carotid bruits. No JVD. Carotid upstrokes are brisk. Heart: RRR. S1 and S2 noted without murmur. PMI non displaced. Lungs: Clear to auscultation. No wheezes, rhonchi, rales. Abdomen: Normal bowel sounds. Soft. Nontender. No masses or organomegaly. No abdominal bruits. Extremities: No edema. No clubbing or cyanosis. Pulses: radial=2/4, posterior tibial=2/4, dorsalis pedis = 2/4. NEURO: No focal deficits. PSYCH: Normal. Results & Data ([facility]) Vital Signs (Past 12 Hours) Vital Signs Temp Pulse Pulse Resp BP Pulse Ox 08/03/21 07:56 36.6 C 79 22 137/61 91 08/03/21 07:11 71 20 88 L 08/03/21 06:33 96 08/03/21 05:57 74 114/43 L 08/03/21 03:11 36.8 C 77 19 92/41 L 91 08/03/21 00:35 84 18 93 08/02/21 23:29 36.7 C 83 19 126/55 L 92 08/02/21 22:19 84 08/02/21 22:09 81 126/62 Laboratory Results 08/03/21 08/03/21 08/03/21 Range/Units 07:15 05:20 05:20 WBC 10.58 (4.8-10.8) K/uL RBC 4.06 L (4.7-6.1) M/uL Hgb 12.0 L (14.0-18.0) g/dL Hct 36.8 L (42-52) % MCV 90.6 (80-100) fL MCH 29.6 (25-34) pg MCHC 32.6 (32-36) g/dL RDW Std Deviation 46.0 (36.4-46.3) fL RDW Coeff of Zully 13.8 (11.5-14.5) % Plt Count 160 (130-400) K/uL MPV 12.1 H (7.4-10.4) fL ABG pH (7.35-7.45) ABG pCO2 (35-46) mmHg ABG pO2 (80-95) mmHg ABG HCO3 (19-24) mmol/L ABG O2 Saturation (90-95) % ABG Base Excess (-9-1.8) mEq/L Joe Test (Pos) Barometric Pressure mm/Hg Oxygen Given Sodium 135 L (136-145) mmol/L Potassium 4.7 (3.5-5.1) mmol/L Chloride 99 (98-107) mmol/L Carbon Dioxide 32 (21-32) mmol/L Anion Gap 4.0 (3-11) BUN 25 H (7-18) mg/dl Creatinine 1.63 H (0.6-1.4) mg/dl Est Cr Clr Drug Dosing 34.2 ml/min Est GFR ( Amer) 44.8 ml/min Est GFR (Non-Af Amer) 38.7 ml/min BUN/Creatinine Ratio 15.5 (10-20) Glucose 175 H (70-99) mg/dl POC Glucose 157 H (70-99) mg/dl Calcium 9.1 (8.5-10.1) mg/dl Magnesium 2.2 (1.8-2.4) mg/dl COVID-19 Eval Order SARS-CoV-2, RNA, NAAT (NEGATIVE) 08/03/21 08/02/21 08/02/21 Range/Units 03:25 20:45 16:02 WBC (4.8-10.8) K/uL RBC (4.7-6.1) M/uL Hgb (14.0-18.0) g/dL Hct (42-52) % MCV (80-100) fL MCH (25-34) pg MCHC (32-36) g/dL RDW Std Deviation (36.4-46.3) fL RDW Coeff of Zully (11.5-14.5) % Plt Count (130-400) K/uL MPV (7.4-10.4) fL ABG pH (7.35-7.45) ABG pCO2 (35-46) mmHg ABG pO2 (80-95) mmHg ABG HCO3 (19-24) mmol/L ABG O2 Saturation (90-95) % ABG Base Excess (-9-1.8) mEq/L Joe Test (Pos) Barometric Pressure mm/Hg Oxygen Given Sodium (136-145) mmol/L Potassium (3.5-5.1) mmol/L Chloride (98-107) mmol/L Carbon Dioxide (21-32) mmol/L Anion Gap (3-11) BUN (7-18) mg/dl Creatinine (0.6-1.4) mg/dl Est Cr Clr Drug Dosing ml/min Est GFR ( Amer) ml/min Est GFR (Non-Af Amer) ml/min BUN/Creatinine Ratio (10-20) Glucose (70-99) mg/dl POC Glucose 211 H 224 H 165 H (70-99) mg/dl Calcium (8.5-10.1) mg/dl Magnesium (1.8-2.4) mg/dl COVID-19 Eval Order SARS-CoV-2, RNA, NAAT (NEGATIVE) 08/02/21 08/02/21 08/02/21 Range/Units 13:56 11:50 11:12 WBC (4.8-10.8) K/uL RBC (4.7-6.1) M/uL Hgb (14.0-18.0) g/dL Hct (42-52) % MCV (80-100) fL MCH (25-34) pg MCHC (32-36) g/dL RDW Std Deviation (36.4-46.3) fL RDW Coeff of Zully (11.5-14.5) % Plt Count (130-400) K/uL MPV (7.4-10.4) fL ABG pH 7.38 (7.35-7.45) ABG pCO2 52 H (35-46) mmHg ABG pO2 47 L (80-95) mmHg ABG HCO3 30 H (19-24) mmol/L ABG O2 Saturation 82.4 L (90-95) % ABG Base Excess 3.7 H (-9-1.8) mEq/L Joe Test Pos (Pos) Barometric Pressure 728.2 mm/Hg Oxygen Given FR 13 Sodium (136-145) mmol/L Potassium (3.5-5.1) mmol/L Chloride (98-107) mmol/L Carbon Dioxide (21-32) mmol/L Anion Gap (3-11) BUN (7-18) mg/dl Creatinine (0.6-1.4) mg/dl Est Cr Clr Drug Dosing ml/min Est GFR ( Amer) ml/min Est GFR (Non-Af Amer) ml/min BUN/Creatinine Ratio (10-20) Glucose (70-99) mg/dl POC Glucose 142 H 165 H (70-99) mg/dl Calcium (8.5-10.1) mg/dl Magnesium (1.8-2.4) mg/dl COVID-19 Eval Order SARS-CoV-2, RNA, NAAT (NEGATIVE) 08/02/21 08/02/21 Range/Units 10:34 10:34 WBC (4.8-10.8) K/uL RBC (4.7-6.1) M/uL Hgb (14.0-18.0) g/dL Hct (42-52) % MCV (80-100) fL MCH (25-34) pg MCHC (32-36) g/dL RDW Std Deviation (36.4-46.3) fL RDW Coeff of Zully (11.5-14.5) % Plt Count (130-400) K/uL MPV (7.4-10.4) fL ABG pH (7.35-7.45) ABG pCO2 (35-46) mmHg ABG pO2 (80-95) mmHg ABG HCO3 (19-24) mmol/L ABG O2 Saturation (90-95) % ABG Base Excess (-9-1.8) mEq/L Joe Test (Pos) Barometric Pressure mm/Hg Oxygen Given Sodium (136-145) mmol/L Potassium (3.5-5.1) mmol/L Chloride (98-107) mmol/L Carbon Dioxide (21-32) mmol/L Anion Gap (3-11) BUN (7-18) mg/dl Creatinine (0.6-1.4) mg/dl Est Cr Clr Drug Dosing ml/min Est GFR ( Amer) ml/min Est GFR (Non-Af Amer) ml/min BUN/Creatinine Ratio (10-20) Glucose (70-99) mg/dl POC Glucose (70-99) mg/dl Calcium (8.5-10.1) mg/dl Magnesium (1.8-2.4) mg/dl COVID-19 Eval Order Covid19 [facility] SARS-CoV-2, RNA, NAAT NEGATIVE (NEGATIVE) Diagnostic Findings July 28, 2021 TTE Interpretation ([facility], Dr. Hearn): Normal LV size and function. Moderate concentric LVH. EF 60-65%. Abnormal septal wall motion. Mild aortic sclerosis without stenosis. August 01, 2021 TTE Interpretation ([facility], Dr. Sharpe): Normal LV size and function. LVEF 55-60%. Abnormal septal motion consistent with conduction abnorm ality. Normal RV size and function. Negative saline contrast study for interatrial shunt. No doppler evidence of ASD/VSD. Compared with prior study on 07/28/2021: No significant changes.
--- NOTE | 2021-08-03 13:31 | Hospitalist Progress Note ---
Date of Service August 03, 2021 Assessment & Plan (1) Acute on chronic diastolic (congestive) heart failure: Plan: Echo on 07/28 showed preserved EF, concentric LVH raising concern for acute HFpEF. - Seen by cardiology; continue furosemide 40 mg IV daily for diuresis. -> Net negative 7.8L today. Weight down about 5 kg as well. Agree with cardiology that he looks euvolemic at this time. Hold Lasix for a day or two given increase in Cr. - NM perfusion scan on 07/31 was "low probability" for PE. - CTA chest on 08/01 showed no PE and stable pleural effusions and nodule. - Repeat Covid on 08/02 was negative. - Still needing 8L NC O2, though half the nasal cannula was out of his nose, so I think he actually is probably lower. Discussed with pulm on 08/03. Possibly some evidence of chronic hypercapnia as well. Did ask respiratory to do a NIF and forced expiratory volumes to see if diaphragmatic weakness is playing a role. (2) Pleural effusion: Plan: Bilateral pleural effusions noted on CT chest on 07/28. - Seen by Dr. Perez while inpatient. No immediate plan for thoracentesis with hope that they will improve/resolve with diuresis. (3) CAD (coronary artery disease): Plan: No chest pain or acute issues. Follows with [facility] cardiology. - Continue home ASA/Plavix, beta-cesar, Imdur (4) Hypertension: Plan: BP is presently 120/65. - Continue metoprolol, isosorbide - Reduced amlodipine to daily on 07/30; stopped all-together on 07/31 for contin ued low BP. (5) Type 2 diabetes mellitus with microalbuminuria, with long-term current use of insulin: Plan: A1c was 7.5% in 06/2021. - Hold oral meds - Sliding scale insulin -> 160 - 250 in last 24 hours. (6) Hypercholesteremia: Plan: - Continue atorvastatin (7) Pulmonary nodule 1 cm or greater in diameter: Plan: 1.8 x 1.4 cm subpleural groundglass nodule within the right upper lobe. Concern for infection vs. malignancy. - Will need repeat CT chest in 09/2021 or 10/2021. (8) DVT prophylaxis: Plan: Heparin 5,000 units SQ Q12h Admission and Anticipated Discharge Date Admission Date: July 28, 2021 Subjective Doing better today. No cough. Reports no fevers/chills, chest pain, shortness of breath, abdominal pain, nausea, or vomiting. Physical Exam Constitutional: WD/WN, vitals as above Eyes: EOM intact bilaterally; no conjunctival abnormality ENMT: external ear and nose normal, oropharynx normal Neck: trachea midline, no thyromegaly normal visual inspection Respiratory: normal respiratory effort, lungs clear to auscultation no respiratory distress Cardiovascular: RRR, no murmur, no edema Gastrointestinal (Abdomen): Inspection/Auscultation: abdomen normal to inspection; abdomen not distended Musculoskeletal: no cyanosis or clubbing, extremities motor strength 5/5 Skin: no rashes, warm and dry Neurologic: moves all extremities and awake Psychiatric: Orientation: alert, oriented to person and cooperative Results & Data Results & Data ([facility]) Vital Signs (Past 12 Hours) Vital Signs Temp Pulse Pulse Resp BP Pulse Ox 08/03/21 12:16 81 18 91 08/03/21 11:55 36.4 C L 78 18 123/62 90 08/03/21 10:12 74 08/03/21 07:56 36.6 C 79 22 137/61 91 08/03/21 07:11 71 20 88 L 08/03/21 06:33 96 08/03/21 05:57 74 114/43 L 08/03/21 03:11 36.8 C 77 19 92/41 L 91 PG Care Time/CCT Total # of Minutes Spent Total Time Spent with Patient: Total time spent is greater than 50% in coordination of care (as documented) at patient's floor/unit and/or counseling patient: Coding Level of Care Code 93669 Subseq Hosp Care Lvl 3 Diagnoses Acute on chronic diastolic (congestive) heart failure I50.33 Pleural effusion J90 CAD (coronary artery disease) I25.10 Hypertension I10 Type 2 diabetes mellitus with microalbuminuria, with long-term current use of insulin E11.29; R80.9; Z79.4 Hypercholesteremia E78.00 Pulmonary nodule 1 cm or greater in diameter R91.1 DVT prophylaxis Z29.9
--- NOTE | 2021-08-03 17:09 | Pulmonology Progress Note ---
Date of Service August 03, 2021 Assessment & Plan (1) SOB (shortness of breath): (2) Acute on chronic diastolic (congestive) heart failure: (3) Pleural effusion: (4) Atelectasis of both lungs: (5) Pulmonary nodule 1 cm or greater in diameter: (6) Chronic hypercapnic respiratory failure: Plan: 80-year-old male with a past medical history of tobacco abuse, coronary artery disease, hypertension and type 2 diabetes mellitus presenting to the hospital due to hypoxemia He will need pulmonary function testing as an outpatient to evaluate for obstructive lung disease such as COPD. 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 Lives in a house with a parakeet. He was also a smoker from the age of 11 to the age of 48. He smoked three quarters of a pack per day. There are increased groundglass opacities noted in the lower lobes along with areas of bibasilar atelectasis on CT chest. Small bilateral effusions are seen. There is a groundglass opacity noted in the left upper lobe. Which will need follow-up with a CT chest in 3 to 6 months. No PE was identified on CT chest. He does not have obvious stigmata of interstitial lung disease such as clubbing or crackles noted on physical exam. He is certainly at risk for interstitial lung disease/pneumoconiosis given his occupational history or possible hypersensitivity pneumonitis given the at-home bird exposure (less likely). He is also at risk for obstructive lung disease. I suspect that his hypoxemia is multifactorial related to possible diffusion impairment from an interstitial lung disease, intrapulmonary shunt from atelectasis, possible obstructive lung disease, possible obesity hypoventilation syndrome and diastolic heart failure. Continue methylprednisone 40 mg IV daily. Transition to p.o. prednisone in the next 1 to 2 days. Echocardiogram with bubble study did not necessarily demonstrate evidence of shunt. Continue the use of incentive spirometry and physical therapy. Continue Breo Ellipta. Pulmonary will continue to follow. Thank you for the consult. Admission and Anticipated Discharge Date Admission Date: July 28, 2021 Subjective Patient seen and examined this morning. He has been using his incentive spirometer very vigorously. He is down to 4 L of oxygen via nasal cannula. He denies any shortness of breath at present. Review of Systems Review of Systems: All systems reviewed & are unremarkable except as noted in HPI & below Physical Exam Constitutional: WD/WN, vitals as above Neck: trachea midline, no thyromegaly Respiratory: normal respiratory effort; no respiratory distress and no labored breathing Decreased breath sounds at the bilateral bases. No wheezing Cardiovascular: RRR, no murmur, no edema Gastrointestinal (Abdomen): normal bowel sounds, soft, nontender, no hepatosplenomegaly Musculoskeletal: Extremities: extremities normal to inspection Skin: no rashes, warm and dry Neurologic: Nonfocal exam Lymphatic: no cervical lymphadenopathy Results & Data Results & Data ([facility]) Vital Signs (Past 12 Hours) Vital Signs Temp Pulse Pulse Resp BP Pulse Ox 08/03/21 15:48 97.9 F 71 19 139/67 94 08/03/21 12:16 81 18 91 08/03/21 11:55 97.5 F L 78 18 123/62 90 08/03/21 10:12 74 08/03/21 07:56 97.9 F 79 22 137/61 91 08/03/21 07:11 71 20 88 L 08/03/21 06:33 96 08/03/21 05:57 74 114/43 L Vital signs, labs and imaging personally reviewed PG Care Time/CCT Total # of Minutes Spent Total Time Spent with Patient: Total time spent is greater than 50% in coordination of care (as documented) at patient's floor/unit and/or counseling patient: Coding Level of Care Code 12931 Subseq Hosp Care Lvl 2 Diagnoses SOB (shortness of breath) R06.02 Acute on chronic diastolic (congestive) heart failure I50.33 Pleural effusion J90 Atelectasis of both lungs J98.11 Pulmonary nodule 1 cm or greater in diameter R91.1 Chronic hypercapnic respiratory failure J96.12
--- NOTE | 2021-08-03 18:18 | Electrocardiogram Report ---
Test Reason : Blood Pressure : / mmHG Vent. Rate : 081 BPM Atrial Rate : 081 BPM P-R Int : 224 ms QRS Dur : 148 ms QT Int : 420 ms P-R-T Axes : 077 086 -87 degrees QTc Int : 487 ms Sinus rhythm with 1st degree A-V block Non-specific intra-ventricular conduction block Abnormal ECG When compared with ECG of 28-JUL-2021 08:45, VA interval has increased Borderline criteria for Lateral infarct are no longer Present T wave inversion more evident in Inferior leads Confirmed by Ilia Vines ([id number]) on 08/03/2021 6:17:59 PM Referred By: REFERRED SELF Confirmed By:Sunny Vines
[2021-08-03] MEDS: GABAPENTIN 100 MG CAP PO SCH (22:13)
[2021-08-03] MEDS: ADVANCED PROBIOTIC 1250 MG CAPSULE PO SCH (22:14)
[2021-08-03] MEDS: CLOPIDOGREL BISULFATE 75 MG TAB PO SCH (22:14)
[2021-08-03] MEDS: INSULIN GLARGINE SOLOSTAR 100 UNITS/ML 3 ML PEN SQ SCH (22:41)
[2021-08-04] MEDS: LEVALBUTEROL HCL 1.25 MG/3 ML NEB NEB SCH ×3 (00:41→13:34)
[2021-08-04 06:33] LABS: Hematocrit (blood only) 35.9 % (42-52); Hemoglobin 11.6 g/dL (14.0-18.0); Mean Corpuscular Hemoglobin 29.2 pg (25-34); Mean Corpuscular Hgb Conc 32.3 g/dL (32-36); Mean Corpuscular Volume 90.4 fL (80-100); Mean Platelet Volume 12.3 fL (7.4-10.4); Platelet Count 170 K/uL (130-400); RDW Coefficient of Variation 13.9 % (11.5-14.5); RDW Standard Deviation 45.6 fL (36.4-46.3); Red Blood Count 3.97 M/uL (4.7-6.1); White Blood Count 13.76 K/uL (4.8-10.8)
[2021-08-04 07:07] LABS: BUN Creatinine Ratio 19.1 (10-20); Calcium 8.9 mg/dl (8.5-10.1); Creatinine Clr Calc Pharmacy 37.2 ml/min; Est GFR (African American) 49.9 ml/min; Est GFR (Non-African American) 43.1 ml/min; Magnesium 2.4 mg/dl (1.8-2.4); Potassium 4.1 mmol/L (3.5-5.1)
[2021-08-04] MEDS: SODIUM CHLOR 7% 4 ML NEB NEB SCH (07:07)
[2021-08-04] MEDS: methylPREDNISolone 40 MG in SYRINGE 0 ML IV SCH (08:37)
[2021-08-04] MEDS: ATORVASTATIN 10 MG TAB PO SCH (08:37)
[2021-08-04] MEDS: VITAMIN B COMPLEX TAB PO SCH (08:37)
[2021-08-04] MEDS: HEPARIN SOD 5,000 UNIT/0.5 ML VIAL SQ SCH (08:37)
[2021-08-04] MEDS: PANTOprazole 40 MG TAB PO SCH (08:38)
[2021-08-04] MEDS: OMEGA-3 (PURIFIED FISH OIL) 1 GM CAP PO SCH (08:38)
[2021-08-04] MEDS: FLUTICASONE/VILANTEROL 200/25MCG 14 PUFFS/INHALER INH SCH (08:38)
[2021-08-04] MEDS: RANOLAZINE 500 MG ER TAB PO SCH (08:38)
[2021-08-04] MEDS: METOPROLOL TARTRATE 50 MG TAB PO SCH (08:38)
[2021-08-04] MEDS: ISOSORBIDE MONO EXTENDED REL 60 MG TABCR PO SCH (08:38)
[2021-08-04] MEDS: INSULIN ASPART 100 UNITS/ML 3 ML PEN SC SCH ×3 (08:39→16:39)
[2021-08-04] MEDS: ASPIRIN 81 MG ECTAB PO SCH (08:39)
[2021-08-04 14:56] VITALS: BP 130/57; TEMP 98.2
[2021-08-04 15:05] VITALS: O2SAT 92
[2021-08-04 16:48] VITALS: PULSE 73
--- NOTE | 2021-08-04 18:22 | Discharge Summary ---
Date of Service August 04, 2021 Admission HPI Per Admitting Provider 80 yo male with past medical history of COPD, CAD, type 2 diabetes, remote history of myocardial infarction, remote history of smoking, comes into the hospital with: a 2-week history of shortness of breath upon exertion which has been gradually getting worse. Patient reports that now he has been wheezing for the past 24 hours and is now having shortness of breath at rest. This is accompanied by a productive cough and orthopnea. Due to the constant wheezing and SOB at rest, patient comes to the ER. Patient denies fever, chills. Patient tested negative for COVID 19. Patient lives with his daughter who is his care-taker Principal Diagnosis Acute diastolic heart failure Mild COPD exacerbation (presumed; no PFTs) Possible underlying ILD from limestone exposure Discharge Exam Constitutional WD/WN, vitals as above Eyes EOM intact bilaterally; no conjunctival abnormality ENMT external ear and nose normal, oropharynx normal Neck trachea midline, no thyromegaly normal visual inspection Respiratory normal respiratory effort, lungs clear to auscultation no respiratory distress Cardiovascular RRR, no murmur, no edema Gastrointestinal (Abdomen) Inspection/Auscultation: abdomen normal to inspection; abdomen not distended Musculoskeletal no cyanosis or clubbing, extremities motor strength 5/5 Skin no rashes, warm and dry Neurologic moves all extremities and awake Psychiatric Orientation: alert, oriented to person and cooperative Discharge Data Allergies Allergy/AdvReac Type Severity Reaction Status Date / Time amoxicillin Allergy Severe swelling Verified 07/28/21 10:29 of lips and throat, shortness of breath Sulfa (Sulfonamide Allergy Intermediate HIVES Verified 07/28/21 10:29 Antibiotics) adhesive Allergy Unknown rash/skin Verified 07/28/21 10:29 irritation Consultations 07/28/21 09:56 ED Decision to Admit Stat 07/28/21 11:57 Consult Cardiology Routine 07/29/21 08:23 Consult Pulmonology Routine Ordered Studies 07/28/21 18:05 CT chest diagnostic wo con Urgent 07/31/21 12:28 US venous doppler LE BI Urgent 08/01/21 10:30 CT head/brain wo con Routine 08/02/21 09:26 CT angio chest PE protocol Routine Hospital Course (1) Acute on chronic diastolic (congestive) heart failure: Echo on 07/28 showed preserved EF, concentric LVH raising concern for acut e HFpEF. - Seen by cardiology; continue furosemide 40 mg IV daily for diuresis. -> Net negative 7.8L today. Weight down about 5 kg as well. Agree with cardiology that he looks euvolemic at this time. Held Lasix for a day or two given increase in Cr. Discharged with Lasix 40 mg PO daily PRN for weight gain. - NM perfusion scan on 07/31 was "low probability" for PE. - CTA chest on 08/01 showed no PE and stable pleural effusions and nodule. - Repeat Covid on 08/02 was negative. - By discharge, down to 3L with exertion and rest. The final diagnostic thought is CHF with possibly undiagnosed COPD or interstitial lung disease from his time working in the [employer]. The COPD/ILD are both presumptive diagnoses as he hasn't had formal PFTs. - Discharged with Lasix PRN and a short remaining course of steroids. (2) Pleural effusion: Bilateral pleural effusions noted on CT chest on 07/28. - Seen by Dr. Perez while inpatient. No immediate plan for thoracentesis with hope that they will improve/resolve with diuresis. (3) CAD (coronary artery disease): No chest pain or acute issues. Follows with [facility] cardiology. - Continue home ASA/Plavix, beta-cesar, Imdur (4) Hypertension: BP is presently 120/65. - Continue metoprolol, isosorbide - Reduced amlodipine to daily on 07/30; stopped all-together on 07/31 for continued low BP. Discharged off amlodpine; can be restarted by PCP if needed. (5) Type 2 diabetes mellitus with microalbuminuria, with long-term current use of insulin: A1c was 7.5% in 06/2021. - Hold oral meds - Sliding scale insulin -> 160 - 250 in last 24 hours. No change on discharge. Will improve once steroids are done. (6) Hypercholesteremia: - Continue atorvastatin (7) Pulmonary nodule 1 cm or greater in diameter: 1.8 x 1.4 cm subpleural groundglass nodule within the right upper lobe. Concern for infection vs. malignancy. - Will need repeat CT chest in 09/2021 or 10/2021. (8) DVT prophylaxis: Heparin 5,000 units SQ Q12h Total Time Total Time Spent Total Time Spent (In Minutes): 35 Discharge Plan Discharge Items Patient Disposition: Home - Home Health Services Reason For Visit: CAD Discharge Diagnosis: Diastolic heart failure, mild COPD exacerbation Activity: Resume your previous activity Non-emergency contact: Primary Care Provider, [employer] and [employer] Engineer Call non-emergency contact if: your symptoms worsen Follow-up/Referrals: Zoltan Lyn III, MD [Primary Care Provider] - Carlos Gates MD [Physician] - (Please consider seeing Dr. Gates in the office in 2-4 weeks.) Luis Alonso [Physician Impersonator Character] - (Please see Dr. Alonso in 1-2 weeks to be sure you are doing well.) Diet: Heart Healthy and Low Sodium (2gm) Addtl Attending Provider Instructions: Mr. Hernandez, You were admitted with shortness of breath. We had the heart and lung doctors see you in the hospital, and we have worked to get you slowly feeling better. First, we took some extra fluid off your lungs. We did this with a medication called Lasix (furosemide) that makes you pee. Luckily, this helped you feel a lot better. We will send you home on an "as needed" dose of Lasix. Please weigh yourself when you get home today. Please write this weight down on a piece of paper near the scale. Weigh yourself every day at the same time (best in the morning) after you have gone to the bathroom. Please weigh yourself in about the same amount of clothing (for instance, your underwear or a bathrobe) to avoid confusion. If you see yourself gain more than 2-3 lbs, please take a dose of the Lasix that day. Please see Mr. Alonso in the office in 1-2 weeks to be sure your weight is stable and you are feeling well. We also had the lung doctor see you because you were needing some oxygen despite feeling well. The lung doctor felt that you possibly had a mild amount of COPD due to possibly your smoking history and working in the [employer]. We are arranging home oxygen to help keep you healthy. We will send you home on 3 more days of steroids to help calm down any remaining lung inflammation. He has started you on a maintenance inhaler for long-term benefit. This is not the same as your rescue inhaler and should not be taken *only* when short of breath. It should be taken once every day to make every day a bit better. Please see Dr. Gates or another lung doctor in 2-4 weeks to be sure you are doing well. Finally, we did stop your amlodipine while you were in the hospital. It can sometimes cause leg swelling, and honestly, you didn't need it while here. Your PCP can restart it as needed. Pending Studies at Discharge: No Stand-Alone Forms: [facility], Smoking Cessation Medications and DC Order Prescriptions: New Breo Ellipta 200-25 mcg/dose Blister With Device 1 inh inhalation DAILY Qty: 28 RF: 0 prednisone 20 mg tablet 40 mg PO DAILY Qty: 6 RF: 0 furosemide 40 mg tablet 40 mg PO DAILY PRN (Reason: weight gain) Qty: 30 RF: 0 Continued albuterol sulfate [ProAir HFA] 90 mcg/actuation HFA aerosol inhaler 2 puffs INH QID PRN (Reason: shortness of breath or wheezing) Qty: 8.5 RF: 5 nitroglycerin [Nitrostat] 0.4 mg tablet, sublingual 0.4 mg SL Q5M PRN (Reason: chest pain) Qty: 25 RF: 1 (DME) OneTouch Ultra Blue Test Strip Strip See Dose Instructions .ROUTE .MEDSUPPLY Qty: 300 RF: 2 gabapentin 100 mg capsule 100 mg PO HS Qty: 90 RF: 3 (DME) pen needle, diabetic [BD Ultra-Fine Short Pen Needle] 31 gauge x 5/16" needle See Rx Instructions .ROUTE .MEDSUPPLY Qty: 50 RF: 5 (DME) lancets [OneTouch Delica Lancets] 30 gauge misc See Dose Instructions .ROUTE .MEDSUPPLY Qty: 300 RF: 3 Nitro-Dur 0.8 mg/hr patch 24 hour 1 patch TD QAM RF: 0 isosorbide mononitrate 60 mg tablet extended release 24 hr 60 mg PO QAM RF: 0 metoprolol tartrate 100 mg tablet 150 mg PO BID RF: 0 atorvastatin 10 mg tablet 10 mg PO QAM RF: 0 pantoprazole 40 mg tablet,delayed release (DR/EC) 40 mg PO QAM RF: 0 clopidogrel 75 mg tablet 75 mg PO HS RF: 0 omega-3 fatty acids [Fish Oil Concentrate] 1,000 mg capsule 1,000 mg PO QAM RF: 0 aspirin 81 mg tablet,chewable 81 mg PO HS RF: 0 Lactobacillus acidophilus Capsule 1,000 mmu cells PO HS RF: 0 vitamin B complex Capsule 1 cap PO QAM RF: 0 ranolazine 500 mg tablet extended release 12 hr 500 mg PO BID RF: 0 Lantus Solostar U-100 Insulin 100 unit/mL (3 mL) insulin pen 45 unit subcut HS RF: 0 Discontinued amlodipine 5 mg tablet 5 mg PO BID RF: 0 Discharge Orders: Discharge Order (Routine); Ordered 08/04/21 Ordered By: Tray Kiser Admission Data Admit Date/Time: 07/28/21 10:33 Attending Provider: Tray Kiser Admit Provider: Hugo Hayward Primary Care Provider: Zoltan Lyn III Other Providers: Jose R Valente ; Thanh Hearn ; Gurdeep Armstrong ; Kalyan Villa ; Popeye Morris ; Rodrigo Wing ; Luis Alonso ; Alexia Jauregui ; Teresa Shafer ; Vee Brown ; Cristian Robertson ; Manan Perez Other Interventions: Discharge Summary Assessment (RN) Last Done: 08/04/21 16:35 Coding Level of Care Code D/C DAY MANAGEMENT >30 MINS Diagnoses Acute on chronic diastolic (congestive) heart failure I50.33 Pleural effusion J90 CAD (coronary artery disease) I25.10 Hypertension I10 Type 2 diabetes mellitus with microalbuminuria, with long-term current use of insulin E11.29; R80.9; Z79.4 Hypercholesteremia E78.00 Pulmonary nodule 1 cm or greater in diameter R91.1 DVT prophylaxis Z29.9
--- NOTE | 2021-08-04 18:58 | Pulmonology Progress Note ---
Date of Service August 04, 2021 Assessment & Plan (1) SOB (shortness of breath): (2) Acute on chronic diastolic (congestive) heart failure: (3) Pleural effusion: (4) Atelectasis of both lungs: (5) Pulmonary nodule 1 cm or greater in diameter: (6) Chronic hypercapnic respiratory failure: Plan: 80-year-old male with a past medical history of tobacco abuse, coronary artery disease, hypertension and type 2 diabetes mellitus presenting to the hospital due to hypoxemia He will need pulmonary function testing as an outpatient to evaluate for obstructive lung disease such as COPD. 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 Lives in a house with a parakeet. He was also a smoker from the age of 11 to the age of 48. He smoked three quarters of a pack per day. There are increased groundglass opacities noted in the lower lobes along with areas of bibasilar atelectasis on CT chest. Small bilateral effusions are seen. There is a groundglass opacity noted in the left upper lobe. Which will need follow-up with a CT chest in 3 to 6 months. No PE was identified on CT chest. He does not have obvious stigmata of interstitial lung disease such as clubbing or crackles noted on physical exam. He is certainly at risk for interstitial lung disease/pneumoconiosis given his occupational history or possible hypersensitivity pneumonitis given the at-home bird exposure (less likely). He is also at risk for obstructive lung disease. I suspect that his hypoxemia is multifactorial related to possible diffusion impairment from an interstitial lung disease, intrapulmonary shunt from atelectasis, possible obstructive lung disease, possible obesity hypoventilation syndrome and diastolic heart failure. He is stable for discharge today with supplemental oxygen. Continue prednisone for an additional 3 to 4 days. Please discharge the patient on Breo Ellipta. May benefit from outpatient sleep study. Echocardiogram with bubble study did not necessarily demonstrate evidence of shunt. Follow-up as an outpatient. Thank you for the consult. Admission and Anticipated Discharge Date Admission Date: July 28, 2021 Subjective Patient's oxygen demands significantly improved and he is down to 3 L and saturating 92%. He denies any shortness of breath at present. He ambulated to day and was found to need 3 L of oxygen with exertion. He is accompanied by his daughter today. Review of Systems Review of Systems: All systems reviewed & are unremarkable except as noted in HPI & below Physical Exam Constitutional: WD/WN, vitals as above Neck: trachea midline, no thyromegaly Respiratory: normal respiratory effort; no respiratory distress and no labored breathing Decreased breath sounds at the bilateral bases. No wheezing Cardiovascular: RRR, no murmur, no edema Gastrointestinal (Abdomen): normal bowel sounds, soft, nontender, no hepatosplenomegaly Musculoskeletal: Extremities: extremities normal to inspection Skin: no rashes, warm and dry Neurologic: Nonfocal exam Lymphatic: no cervical lymphadenopathy Results & Data Results & Data ([facility]) Vital Signs (Past 12 Hours) Vital Signs Temp Pulse Pulse Pulse Pulse Pulse Pulse 08/04/21 16:35 98.2 F 08/04/21 15:19 70 08/04/21 14:59 08/04/21 14:55 98.2 F 08/04/21 13:50 69 87 87 77 70 08/04/21 08:00 64 08/04/21 07:18 98.1 F 08/04/21 07:09 Pulse Resp Resp Resp Resp Resp Resp 08/04/21 16:35 73 20 08/04/21 15:19 08/04/21 14:59 08/04/21 14:55 73 20 08/04/21 13:50 77 18 18 18 20 18 18 08/04/21 08:00 08/04/21 07:18 66 22 08/04/21 07:09 67 18 BP Pulse Ox Pulse Ox Pulse Ox Pulse Ox Pulse Ox Pulse Ox 08/04/21 16:35 130/57 L 92 08/04/21 15:19 08/04/21 14:59 92 08/04/21 14:55 130/57 L 91 08/04/21 13:50 90 86 L 90 90 90 86 L 08/04/21 08:00 08/04/21 07:18 133/54 L 90 08/04/21 07:09 94 PG Care Time/CCT Total # of Minutes Spent Total Time Spent with Patient: Total time spent is greater than 50% in coordination of care (as documented) at patient's floor/unit and/or counseling patient: Coding Level of Care Code 06849 Subseq Hosp Care Lvl 1 Diagnoses SOB (shortness of breath) R06.02 Acute on chronic diastolic (congestive) heart failure I50.33 Pleural effusion J90 Atelectasis of both lungs J98.11 Pulmonary nodule 1 cm or greater in diameter R91.1 Chronic hypercapnic respiratory failure J96.12
== END 2021-08-04 18:10 | disposition home or self-care (01) | DRG 291 ==
LOC: ED 08:20 → SUATTDRO 10:33 → EDINP 10:33 → 2S 12:30

== ENCOUNTER 2021-11-19 19:16 | Inpatient (IN) ==
[2021-11-19 19:42] LABS: Basophils # (auto) 0.05 K/uL (0-0.2); Basophils % (auto) 0.8 %; Eosinophils # (auto) 0.25 K/uL (0-0.5); Eosinophils % (auto) 3.8 %; Hematocrit (blood only) 38.6 % (42-52); Hemoglobin 12.3 g/dL (14.0-18.0); Immature Granulocytes # (auto) 0.03 K/uL (0.00-0.02); Immature Granulocytes % (auto) 0.5 %; Lymphocytes # (auto) 0.95 K/uL (1.2-3.4); Lymphocytes % (auto) 14.5 %; Mean Corpuscular Hemoglobin 29.4 pg (25-34); Mean Corpuscular Hgb Conc 31.9 g/dL (32-36); Mean Corpuscular Volume 92.1 fL (80-100); Mean Platelet Volume 12.1 fL (7.4-10.4); Monocytes # (auto) 0.69 K/uL (0.11-0.59); Monocytes % (auto) 10.5 %; Neutrophils # (auto) 4.58 K/uL (1.4-6.5); Neutrophils % (auto) 69.9 %; Platelet Count 158 K/uL (130-400); RDW Coefficient of Variation 14.3 % (11.5-14.5); RDW Standard Deviation 48.2 fL (36.4-46.3); Red Blood Count 4.19 M/uL (4.7-6.1); White Blood Count 6.55 K/uL (4.8-10.8)
[2021-11-19 20:05] LABS: Albumin Globulin Ratio 0.9 (0.9-2); Albumin Level 3.4 gm/dl (3.4-5.0); BUN Creatinine Ratio 12.1 (10-20); Bilirubin,Total 0.9 mg/dl (0.2-1.0); Calcium 9.1 mg/dl (8.5-10.1); Est GFR (African American) 53.5 ml/min; Est GFR (Non-African American) 46.1 ml/min; Globulin 3.7 gm/dl (2.5-4.0); Magnesium 1.6 mg/dl (1.7-2.4); Potassium 4.1 mmol/L (3.5-5.1); Total Protein 7.1 gm/dl (6.0-8.3); Troponin I 1.05 ng/ml (0-0.04)
--- NOTE | 2021-11-19 20:56 | XRay Report ---
XR chest 1V portable HISTORY: 81 years-old Male weakness acute weakness COMPARISON: CT abdomen and pelvis of same day, chest radiographs 07/31/2021 TECHNIQUE: Portable AP view of the chest FINDINGS: Cardiac silhouette is enlarged. Calcified plaque of the thoracic aorta. Mild pulmonary vascular conge stion without overt pulmonary edema. Subsegmental bibasilar densities. Degenerative changes of the sh oulders and spine. IMPRESSION: 1. Cardiomegaly with pulmonary vascular congestion. 2. Mild bibasilar opacities suggestive of atelectasis versus pneumonitis. ACT 112: Negative or not required by law. The above report was generated using voice recognition software. It may contain grammatical, syntax o r spelling errors. Electronically signed by: Yevgeniy Mares M.D. 11/19/2021 8:55 PM
[2021-11-19 21:11] LABS: Cdiff Antigen Positive; Cdiff Toxin A+B Negative Cdiff Toxin (Negative)
[2021-11-19] MEDS ORDERED: VANCOMYCIN HCL 125 MG/2.5ML SOLN PO STA (21:19)
--- NOTE | 2021-11-19 21:19 | CT Scan Report ---
ABDOMEN AND PELVIS CT WITHOUT CONTRAST CT DOSE: 737.48 mGy.cm HISTORY: Acute generalized abdominal pain with weakness abd pain, diff urinating, weakness TECHNIQUE: Multiaxial CT images of the abdomen and pelvis were performed without contrast. A dose lo wering technique was utilized adhering to the principles of ALARA. COMPARISON STUDY: CT abdomen and pelvis 10/01/2016, CTA chest 08/02/2021 FINDINGS: Cardiomegaly with extensive coronary artery calcifications. Bibasilar bronchial wall thickening with mucous plugging, groundglass densities with mild linear consolidation and subpleural reticulation. Tr karime pleural effusions. No pneumatosis or pneumoperitoneum. Limited evaluation of the solid abdominal organs without the use of IV contrast. Hepatic steatosis with marginal nodularity of the liver. Emily cystectomy. Questioned interstitial edema involving the pancreas. Unremarkable adrenal glands. Recana lization of the umbilical vein with upper abdominal varices. Nonspecific bilateral perinephric stranding.. There is a 5 mm linear calcification noted within the r egion of the left renal pelvis on image 202. Mild pelviectasis without anuj hydronephrosis. Mild uri nary bladder wall thickening with partial distention. Extensive atherosclerotic plaque of the abdomin al aorta and iliac arteries. Prostamegaly. Pelvic structures are suboptimally visualized secondary to streak artifact from bilateral hip total joint arthroplasties. There are a few prominent retroperito alf and periportal lymph nodes measuring up to 9 mm which are nonspecific. Duodenal diverticulum. Mild nonspecific distal esophageal wall thickening. Trace abdominal pelvic asc ites with mild generalized mesenteric edema. There is wall thickening noted throughout the majority o f the colon with pericolonic stranding. Normal appendix. No small bowel obstruction. Unremarkable sof t tissues. No acute fracture. IMPRESSION: 1. Hepatic steatosis with cirrhosis and trace abdominal pelvic ascites. 2. There is wall thickening throughout the majority of the colon and rectum with mild pericolonic str anding. Findings may be secondary to portal colopathy versus a nonspecific infectious or inflammatory colitis. 3. No bowel obstruction. 4. Trace pleural effusions with mild bibasilar atelectasis/scarring. 5. 5 mm calcification of the left renal pelvis without anuj hydronephrosis. 6. Additional findings as above. ACT 112: Negative or not required by law. The above report was generated using voice recognition software. It may contain grammatical, syntax o r spelling errors. Electronically signed by: Yevgeniy Mares M.D. 11/19/2021 9:18 PM
[2021-11-19] MEDS ORDERED: RASPBERRY SYRUP 5 ML UDP PO ONE (21:45)
--- NOTE | 2021-11-19 22:39 | History & Physical Report ---
Date of Service November 19, 2021 History of Present Illness Primary Care Provider: NO PCP Allergies Allergy/AdvReac Type Severity Reaction Status Date / Time amoxicillin Allergy Severe swelling Verified 11/19/21 19:37 of lips and throat, shortness of breath adhesive Allergy Intermediate rash/skin Verified 11/19/21 19:37 irritation Sulfa (Sulfonamide Allergy Intermediate HIVES Verified 11/19/21 19:37 Antibiotics) Home Medications Medication Instructions Recorded Confirmed Type aspirin 81 mg chewable tablet 81 mg PO HS 06/18/19 11/19/21 History atorvastatin 10 mg tablet 10 mg PO [facility] 06/18/19 11/19/21 History clopidogrel 75 mg tablet 75 mg PO HS 06/18/19 11/19/21 History isosorbide mononitrate 60 mg 60 mg PO [facility] 06/18/19 11/19/21 History tablet,extended release 24 hr metoprolol tartrate 100 mg tablet 150 mg PO BID tab 06/18/19 11/19/21 History nitroglycerin 0.8 mg/hr 1 patch TD [facility] 06/18/19 11/19/21 History transdermal 24 hour patch (Nitro-Dur) pantoprazole 40 mg tablet,delayed 40 mg PO [facility] 06/18/19 11/19/21 History release gabapentin 100 mg capsule 100 mg PO HS #90 cap 02/07/21 11/19/21 Rx pen needle, diabetic 31 gauge x #50 ea 03/21/21 08/09/21 Rx 5/16" (BD Ultra-Fine Short Pen Needle) lancets 30 gauge (OneTouch Delica #300 ea 04/20/21 08/09/21 Rx Lancets) insulin glargine 100 unit/mL (3 45 unit SUBCUT HS 07/28/21 11/19/21 History mL) subcutaneous pen (Lantus Solostar U-100 Insulin) ranolazine 500 mg tablet,extended 500 mg PO BID 07/28/21 11/19/21 History release,12 hr Miscellaneous Pulmonary Supply #1 ea 08/10/21 Rx fluticasone furoate 200 1 inh INHALATION DAILY #28 ea 09/11/21 11/19/21 Rx mcg-vilanterol 25 mcg/dose inhalation powder (Breo Ellipta) blood sugar diagnostic #300 ea 10/15/21 Rx Lactobacillus acidophilus 1 tab PO QPM 11/19/21 11/19/21 History (Acidophilus) omega 4-mai-yrw-fish oil 1,000 mg 1 cap PO DAILY 11/19/21 11/19/21 History (120 mg-180 mg) capsule (Fish Oil) vitamin B complex 1 tab PO DAILY 11/19/21 11/19/21 History Past Med/Surg History Medical History (Updated 08/12/21 @ 23:29 by Flora Herrera PA-C) Atelectasis of both lungs Cholelithiasis Chronic hypercapnic respiratory failure Hypertension Pulmonary nodule 1 cm or greater in diameter Will need repeat CT chest in 09/2021. Unstable angina (01/12/14) Surgical History History of cholecystectomy History of esophagogastroduodenoscopy History of heart surgery History of hip replacement, total History of shoulder surgery Family History Father Myocardial infarction Heart disease Sister Breast cancer Mother Stroke Family/Other Arthritis Brother Coronary heart disease Denies family history of Ovarian cancer Prostate cancer Colorectal cancer Social History (Updated 08/09/21 @ 15:26 by Ayanna Peraza LPN) Smoking Status: Former smoker Tobacco Type: Cigarettes Age Started Using Tobacco: 11; Age Quit Using Tobacco: 48; packs per day: 0.75; Second Hand Exposure: Yes; Hx Alcohol Use: No Hx Substance Use: No Preferred Language: Sinhala Communication Ability: Effective Visual Impairment: Limited Hearing Ability: Hard of Hearing Coater Smoking Pipe Required: No Beliefs That Will Affect Care: None marital status: Current Living Situation: Family Current Living Situation Comment: lives with oldest daughter 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 many Children do You have: 2 Feels Safe at Home: Yes Childhood Exposure to Second-Hand Smoke: Yes caffeine: Yes (coffee) during the past year weight has: remained stable Dental Care, Regularly: No Physical Activity Frequency: Does not Exercise Seatbelt Use: always Sunscreen Use: No Assistive Devices: Glasses and Oxygen - Continuous Results & Data Results & Data ([facility]) Vital Signs (Past 12 Hours) Vital Signs Temp Pulse Resp BP Pulse Ox 11/19/21 21:30 98 H 20 93 11/19/21 21:20 95 H 20 95 11/19/21 21:10 94 H 20 95 11/19/21 21:00 94 H 21 95 11/19/21 20:50 96 H 18 97 11/19/21 20:42 110 H 95 11/19/21 20:20 97 H 97 11/19/21 20:10 97 H 95 11/19/21 20:00 97 H 17 96 11/19/21 19:50 93 H 24 95 11/19/21 19:40 97 H 19 95 11/19/21 19:30 107 H 17 95 11/19/21 19:29 96 H 16 95 11/19/21 19:23 94 H 19 96 11/19/21 19:16 37.2 C 95 H 14 174/92 H 96 Code Status & VTE Plan VTE Prophylaxis Plan VTE Prophylaxis will be ordered: Yes PG Care Time/CCT Total # of Minutes Spent Total Time Spent with Patient: Total time spent is greater than 50% in coordination of care (as documented) at patient's floor/unit and/or counseling patient: Coding
--- NOTE | 2021-11-19 22:53 | History & Physical Report ---
Date of Service November 19, 2021 Assessment & Plan (1) Elevated troponin I level: Plan: Elevated troponin I level/CAD/hypertension- The patient will be admitted to telemetry for serial cardiac enzymes, serial EKG's, cardiac rhythm monitoring and a 2-D echocardiogram with Dopplers. Troponin I 1.05 upon admission Continue metoprolol tartrate, aspirin 81 mg daily, clopidogrel 75 mg daily, isosorbide mononitrate 60 mg daily, ranolazine 500 mg p.o. twice daily and ni troglycerin 0.8 mg/h transdermal patch Patient has no direct symptoms of chest pain or shortness of breath, but has been feeling weak over the past several days. Question whether this may be a type II process secondary to physiologic stress of diarrhea, or primary process (2) Clostridioides difficile infection: Plan: Patient is seen C. difficile gene positive, with C. difficile toxin negative Symptoms are consistent with active C. difficile infection Placed on vancomycin 250 mg p.o. 4 times daily (3) CAD (coronary artery disease): Plan: See above (4) Hypertension: Plan: See above (5) Liver cirrhosis: Plan: Liver cirrhosis/hepatic steatosis- New diagnosis- Split suspect secondary to LARA No abnormalities in liver enzymes Check a coagulation profile PT/INR/PTT (6) Type 2 diabetes mellitus with microalbuminuria, with long-term current use of insulin: Plan: Continue Lantus 45 units subcu at bedtime Place on Accu-Cheks before meals and at bedtime with NovoLog coverage per scale Check hemoglobin A1c (7) BPH w urinary obs/LUTS: Plan: CT with enlarged prostate, thickened bladder wall, and mildly distended bladder. Patient notes difficulty with urination Start tamsulosin 0.4 mg at bedtime, with first first dose this evening Follow urinalysis and urine culture and sensitivity (8) Hypomagnesemia: Plan: Magnesium 1.6 upon admission Give magnesium 2 g IV, and recheck in a.m. (9) Hepatic steatosis: Plan: See above (10) COPD (chronic obstructive pulmonary disease): Plan: Continue routine inhalers (11) Hypercholesteremia: Plan: Continue atorvastatin 10 mg daily Check a fasting lipid panel (12) GERD (gastroesophageal reflux disease): Plan: Continue pantoprazole History of Present Illness Chief Complaint: The patient was referred to the emergency department by home health nurse after being noted at home to be very weak and not able to function Primary Care Provider: NO PCP The patient is an 81-year-old male with a past medical history including COPD, diabetes mellitus type 2, hypercholesterolemia, hypertension, hematochezia, hyperkalemia, acute on chronic diastolic heart failure, CAD, chronic bundle branch block, pleural effusion, pulmonary nodule, chronic hypercapnic respiratory failure and ambulatory dysfunction. When the patient was seen by home nursing today, they felt he was doing poorly and call was made EMS to take him to the emergency department. He was found to be in A. fib with RVR, that resolved by time of arrival to the ED. He notes no previous episodes of A. fib that he is aware of. Patient reports that he has had significant issues with loose stools, and hasn't urinated until today. He does report lower abdominal pelvic discomfort. Allergies Allergy/AdvReac Type Severity Reaction Status Date / Time amoxicillin Allergy Severe swelling Verified 11/19/21 19:37 of lips and throat, shortness of breath adhesive Allergy Intermediate rash/skin Verified 11/19/21 19:37 irritation Sulfa (Sulfonamide Allergy Intermediate HIVES Verified 11/19/21 19:37 Antibiotics) Home Medications Medication Instructions Recorded Confirmed Type aspirin 81 mg chewable tablet 81 mg PO HS 06/18/19 11/19/21 History atorvastatin 10 mg tablet 10 mg PO QA 06/18/19 11/19/21 History clopidogrel 75 mg tablet 75 mg PO HS 06/18/19 11/19/21 History isosorbide mononitrate 60 mg 60 mg PO QAM 06/18/19 11/19/21 History tablet,extended release 24 hr metoprolol tartrate 100 mg tablet 150 mg PO BID tab 06/18/19 11/19/21 History nitroglycerin 0.8 mg/hr 1 patch TD QAM 06/18/19 11/19/21 History transdermal 24 hour patch (Nitro-Dur) pantoprazole 40 mg tablet,delayed 40 mg PO QAM 06/18/19 11/19/21 History release gabapentin 100 mg capsule 100 mg PO HS #90 cap 02/07/21 11/19/21 Rx pen needle, diabetic 31 gauge x #50 ea 03/21/21 08/09/21 Rx 5/16" (BD Ultra-Fine Short Pen Needle) lancets 30 gauge (VoteItuch Delica #300 ea 04/20/21 08/09/21 Rx Lancets) insulin glargine 100 unit/mL (3 45 unit SUBCUT HS 07/28/21 11/19/21 History mL) subcutaneous pen (Lantus Solostar U-100 Insulin) ranolazine 500 mg tablet,extended 500 mg PO BID 07/28/21 11/19/21 History release,12 hr Miscellaneous Pulmonary Supply #1 ea 08/10/21 Rx fluticasone furoate 200 1 inh INHALATION DAILY #28 ea 09/11/21 11/19/21 Rx mcg-vilanterol 25 mcg/dose inhalation powder (Breo Ellipta) blood sugar diagnostic #300 ea 10/15/21 Rx Lactobacillus acidophilus 1 tab PO QPM 11/19/21 11/19/21 History (Acidophilus) omega 3-oue-rkb-fish oil 1,000 mg 1 cap PO DAILY 11/19/21 11/19/21 History (120 mg-180 mg) capsule (Fish Oil) vitamin B complex 1 tab PO DAILY 11/19/21 11/19/21 History Past Med/Surg History Medical History (Updated 11/20/21 @ 03:38 by Nato Garrett MD) Atelectasis of both lungs Cholelithiasis Chronic hypercapnic respiratory failure GERD (gastroesophageal reflux disease) Hypertension Pulmonary nodule 1 cm or greater in diameter Will need repeat CT chest in 09/2021. Unstable angina (01/12/14) Surgical History History of cholecystectomy History of esophagogastroduodenoscopy History of heart surgery History of hip replacement, total History of shoulder surgery Family History Father Myocardial infarction Heart disease Sister Breast cancer Mother Stroke Family/Other Arthritis Brother Coronary heart disease Denies family history of Ovarian cancer Prostate cancer Colorectal cancer Social History (Updated 08/09/21 @ 15:26 by Ayanna Peraza LPN) Smoking Status: Former smoker Tobacco Type: Cigarettes Age Started Using Tobacco: 11; Age Quit Using Tobacco: 48; packs per day: 0.75; Second Hand Exposure: Yes; Hx Alcohol Use: No Hx Substance Use: No Preferred Language: Romanian Communication Ability: Effective Visual Impairment: Limited Hearing Ability: Hard of Hearing Counter Stitcher Required: No Beliefs That Will Affect Care: None marital status: Current Living Situation: Family Current Living Situation Comment: lives with oldest daughter 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 many Children do You have: 2 Feels Safe at Home: Yes Childhood Exposure to Second-Hand Smoke: Yes caffeine: Yes (coffee) during the past year weight has: remained stable Dental Care, Regularly: No Physical Activity Frequency: Does not Exercise Seatbelt Use: always Sunscreen Use: No Assistive Devices: Glasses and Oxygen - Continuous Review of Systems Review of Systems: The patient denies chest pain, palpitations, shortness of breath, dyspnea on exertion, cough, lower extremity swelling, sore throat, fevers, chills, sweats, nausea, vomiting, blood in urine or stool, dysuria, urinary frequency or urgency, lightheadedness, dizziness, headache, memory loss, loss of consciousness, rash, abnormal bruising or bleeding, focal weakness, numbness or tingling in arms or legs, back or neck pain, or night sweats. The review of systems is otherwise negative other than for that already noted above, and at least 10 systems have been reviewed. Physical Exam Physical Exam: The patient is awake, alert and oriented 3, well developed and well nourished, normocephalic and atraumatic, lying in bed and in no acute distress. HEENT--PERRL, EOMI, mucous membranes and oropharynx dry. Neck--supple. No JVD. No bruits. Thyroid normal, trachea midline, no adenopathy. Heart--normal S1 and S2. No murmurs, rubs or gallops. Lungs--clear bilaterally, no respiratory distress, no accessory muscle use. Abdomen--normal bowel sounds and soft. Nontender. Nondistended, no hernias or masses, no organomegaly. Extremities--no cyanosis or clubbing. No edema. Dermatologic--normal skin turgor, normal color, no abnormal lymph nodes, no rash. Neurologic--cranial nerves II through XII grossly intact. Rheumatologic--normal range of motion. Psychiatric--normal affect. Results & Data Results & Data ([facility]) Vital Signs (Past 12 Hours) Vital Signs Temp Pulse Resp BP Pulse Ox 11/19/21 21:30 98 H 20 93 11/19/21 21:20 95 H 20 95 11/19/21 21:10 94 H 20 95 11/19/21 21:00 94 H 21 95 11/19/21 20:50 96 H 18 97 11/19/21 20:42 110 H 95 11/19/21 20:20 97 H 97 11/19/21 20:10 97 H 95 11/19/21 20:00 97 H 17 96 11/19/21 19:50 93 H 24 95 11/19/21 19:40 97 H 19 95 11/19/21 19:30 107 H 17 95 11/19/21 19:29 96 H 16 95 11/19/21 19:23 94 H 19 96 11/19/21 19:16 37.2 C 95 H 14 174/92 H 96 Laboratory Results Laboratory Results WBC 6.55 K/uL (4.8-10.8) 11/19/21 19:30 RBC 4.19 M/uL (4.7-6.1) L 11/19/21 19:30 Hgb 12.3 g/dL (14.0-18.0) L 11/19/21 19:30 Hct 38.6 % (42-52) L 11/19/21 19:30 MCV 92.1 fL (80-100) 11/19/21 19:30 MCH 29.4 pg (25-34) 11/19/21 19:30 MCHC 31.9 g/dL (32-36) L 11/19/21 19:30 RDW Std Deviation 48.2 fL (36.4-46.3) H 11/19/21 19:30 RDW Coeff of Zully 14.3 % (11.5-14.5) 11/19/21 19:30 Plt Count 158 K/uL (130-400) 11/19/21 19:30 MPV 12.1 fL (7.4-10.4) H 11/19/21 19:30 Immature Gran % (Auto) 0.5 % 11/19/21 19:30 Neut % (Auto) 69.9 % 11/19/21 19:30 Lymph % (Auto) 14.5 % 11/19/21 19:30 [place] % (Auto) 10.5 % 11/19/21 19:30 Eos % (Auto) 3.8 % 11/19/21 19:30 Baso % (Auto) 0.8 % 11/19/21 19:30 Neut # (Auto) 4.58 K/uL (1.4-6.5) 11/19/21 19:30 Lymph # (Auto) 0.95 K/uL (1.2-3.4) L 11/19/21 19:30 [place] # (Auto) 0.69 K/uL (0.11-0.59) H 11/19/21 19:30 Eos # (Auto) 0.25 K/uL (0-0.5) 11/19/21 19:30 Baso # (Auto) 0.05 K/uL (0-0.2) 11/19/21 19: Immature Gran # (Auto) 0.03 K/uL (0.00-0.02) H 11/19/21 19:30 Sodium 135 mmol/L (136-145) L 11/19/21:30 Potassium 4.1 mmol/L (3.5-5.1) 11/19/21: Chloride 99 mmol/L (98-107) 11/19/21 19:30 Carbon Dioxide 27 mmol/L (21-32) 11/19/21 19:30 Anion Gap 9 (3-11) 11/19/21 19:30 BUN 17 mg/dl (6-23) 11/19/21 19:30 Creatinine 1.40 mg/dl (0.6-1.4) 11/19/21 19:30 Est Cr Clr Drug Dosing 42.0 ml/min 11/19/21 19:30 Est GFR ( Amer) 53.5 ml/min 11/19/21 19:30 Est GFR (Non-Af Amer) 46.1 ml/min 11/19/21 19:30 BUN/Creatinine Ratio 12.1 (10-20) 11/19/21 19:30 Glucose 285 mg/dl (70-99(Fasting)) H 11/19/21 19:30 Lactate 1.1 mmol/L (0.4-2.0) 11/19/21 21:40 Calcium 9.1 mg/dl (8.5-10.1) 11/19/21 19:30 Magnesium 1.6 mg/dl (1.7-2.4) L 11/19/21 19:30 Total Bilirubin 0.9 mg/dl (0.2-1.0) 11/19/21 19:30 AST 49 U/L (13-39) H 11/19/21 19:30 ALT 38 U/L (7-52) 11/19/21 19:30 Alkaline Phosphatase 74 U/L (34-104) 11/19/21 19:30 Troponin I 1.05 ng/ml (0-0.04) H* 11/19/21 19:30 B-Natriuretic Peptide 181 pg/ml (0-100) H 11/19/21 21:40 Total Protein 7.1 gm/dl (6.0-8.3) 11/19/21 19:30 Albumin 3.4 gm/dl (3.4-5.0) 11/19/21 19:30 Globulin 3.7 gm/dl (2.5-4.0) 11/19/21 19:30 Albumin/Globulin Ratio 0.9 (0.9-2) 11/19/21 19:30 Lipase 62 U/L (11-82) 11/19/21 19:30 TSH 2.523 uIu/ml (0.300-4.500) 11/19/21 19:30 Stl C. diff Tox B Gene Positive Cdiff Gene (Neg) H 11/19/21 19:36 Stl C.difficile Tox A&B Negative Cdiff Toxin (Negative) 11/19/21 19:36 SARS-CoV-2, RNA, NAAT NEGATIVE (NEGATIVE) 11/19/21 20:40 Impressions Abdomen/Pelvis CT 11/19/21 19:[address] WITHOUT CONTRAST CT DOSE: 737.48 mGy.cm HISTORY: Acute generalized abdominal pain with weakness abd pain, diff urinating, weakness TECHNIQUE: Multiaxial CT images of the abdomen and pelvis were performed without contrast. A dose lowering technique was utilized adhering to the principles of ALARA. COMPARISON STUDY: CT abdomen and pelvis 10/01/2016, CTA chest 08/02/2021 FINDINGS: Cardiomegaly with extensive coronary artery calcifications. Bibasilar bronchial wall thickening with mucous plugging, groundglass densities with mild linear consolidation and subpleural reticulation. Trace pleural effusions. No pneumatosis or pneumoperitoneum. Limited evaluation of the solid abdominal organs without the use of IV contrast. Hepatic steatosis with marginal nodularity of the liver. Cholecystectomy. Questioned interstitial edema involving the pancreas. Unremarkable adrenal glands. Recanalization of the umbilical vein with upper abdominal varices. Nonspecific bilateral perinephric stranding.. There is a 5 mm linear calcification noted within the region of the left renal pelvis on image 202. Mild pelviectasis without anuj hydronephrosis. Mild urinary bladder wall thickening with partial distention. Extensive atherosclerotic plaque of the abdominal aorta and iliac arteries. Prostamegaly. Pelvic structures are suboptimally visualized secondary to streak artifact from bilateral hip total joint arthroplasties. There are a few prominent retroperitoneal and periportal lymph nodes measuring up to 9 mm which are nonspecific. Duodenal diverticulum. Mild nonspecific distal esophageal wall thickening. Trace abdominal pelvic ascites with mild generalized mesenteric edema. There is wall thickening noted throughout the majority of the colon with pericolonic stranding. Normal appendix. No small bowel obstruction. Unremarkable soft tissues. No acute fracture. IMPRESSION: 1. Hepatic steatosis with cirrhosis and trace abdominal pelvic ascites. 2. There is wall thickening throughout the majority of the colon and rectum with mild pericolonic stranding. Findings may be secondary to portal colopathy versus a nonspecific infectious or inflammatory colitis. 3. No bowel obstruction. 4. Trace pleural effusions with mild bibasilar atelectasis/scarring. 5. 5 mm calcification of the left renal pelvis without anuj hydronephrosis. 6. Additional findings as above. ACT 112: Negative or not required by law. The above report was generated using voice recognition software. It may contain grammatical, syntax or spelling errors. Electronically signed by: Yevgeniy Mares M.D. 11/19/2021 9:18 PM Chest X-Ray 11/19/21 19:29 XR chest 1V portable HISTORY: 81 years-old Male weakness acute weakness COMPARISON: CT abdomen and pelvis of same day, chest radiographs 07/31/2021 TECHNIQUE: Portable AP view of the chest FINDINGS: Cardiac silhouette is enlarged. Calcified plaque of the thoracic aorta. Mild pulmonary vascular congestion without overt pulmonary edema. Subsegmental bibasilar densities. Degenerative changes of the shoulders and spine. IMPRESSION: 1. Cardiomegaly with pulmonary vascular congestion. 2. Mild bibasilar opacities suggestive of atelectasis versus pneumonitis. ACT 112: Negative or not required by law. The above report was generated using voice recognition software. It may contain grammatical, syntax or spelling errors. Electronically signed by: Yevgeniy Mares M.D. 11/19/2021 8:55 PM Code Status & VTE Plan Code Status Full code VTE Prophylaxis Plan VTE Prophylaxis will be ordered: Yes PG Care Time/CCT Total # of Minutes Spent Total Time Spent with Patient: Total time spent is greater than 50% in coordination of care (as documented) at patient's floor/unit and/or counseling patient: Coding Level of Care Code 70069 Initial Inpt Care Lvl 3 Diagnoses Liver cirrhosis K74.60 Clostridioides difficile infection A49.8 COPD (chronic obstructive pulmonary disease) J44.9 Type 2 diabetes mellitus with microalbuminuria, with long-term current use of insulin E11.29; R80.9; Z79.4 Hypercholesteremia E78.00 Hypertension I10 CAD (coronary artery disease) I25.10 BPH w urinary obs/LUTS N40.1; N13.8 Hypomagnesemia E83.42 Hepatic steatosis K76.0 Elevated troponin I level R77.8 GERD (gastroesophageal reflux disease) K21.9
[2021-11-19] MEDS: MAGNESIUM SULFATE / D5W 1 GM/100 ML BAG IV SCH (23:13)
[2021-11-20] MEDS: MAGNESIUM SULFATE / D5W 1 GM/100 ML BAG IV SCH (01:14)
--- NOTE | 2021-11-20 01:24 | Emergency Department Note ---
Impression & Plan Elevated troponin, Colitis, Clostridioides difficile infection, Clostridioides difficile toxin not detected, Nephrolithiasis ED Provider Note INFORMANT: Patient ED PROVIDER(S): Basilio Hussein MD CHIEF COMPLAINT: Weakness PLAN: Disposition: Admitted Condition: Good Outpatient prescription management: none Referral: None MEDICAL DECISION MAKING: Patient presented to emergency room because home health noted he was not doing well at home. He was weak. He was not taking his medications and was found to have an episode of rapid A. fib. He resolved the A. fib by time he arrived her e. He did have some abdominal tenderness on examination. A work-up was initiated. The patient's ECG showed a sinus rhythm with a left bundle branch block. He has a history of left bundle branch block. The patient's CBC was unremarkable. His troponin was elevated. Chemistry panel was unremarkable. A CT scan was performed due to abdominal discomfort and he had a findings consistent with a mild colitis. There was a left sided 5 mm renal pelvis stone. The patient was not having any flank pain. Patient did have diarrhea that was concerning for C. difficile per nursing. This was sent to the lab. C. difficile gene was positive however toxin was negative. The patient does not have any history of C. difficile recorded in the EMR. He was given oral dose of vancomycin. Further management will be necessary in the hospital. Consultation was made with Dr. Nato Garrett of the [facility] service. Patient was evaluated in the ER for further management. Triage Nursing notes reviewed and agree them. Vital Signs: reviewed and remarkable for no significant abnormalities Differential diagnosis: Infection, dehydration, metabolic abnormality, hypo/hyperglycemia, electrolyte disturbance, anemia, hypoxia, cardiac sources, intracerebral event, toxicologic, neurologic, as well as other pathologies. Diagnostics interpreted by me: ECG: Twelve-lead ECG reveals a normal sinus rhythm at 95 bpm. Left atrial enlargement present. Left bundle branch block. No significant ST elevation. No PVCs. Cardiac Monitoring: Cardiac monitoring ordered by me: The patient was placed on continuous cardiac monitoring and observed. It revealed a normal sinus rhythm at 77 beats per minute without ectopy or evidence of dysrhythmia. Imaging studies: CT scan as noted above. I refer you to the EMR for further details. HPI: The patient is a 81year old male who presents to the Emergency Room with complaints of weakness. This started last week and is worsening. The patient also notes the following associated symptoms, mild abdominal pain, diarrhea, medication noncompliance. The patient has taken no medication for relieving factors. Current pain is rated as 3/10. Home health evaluated the patient and he was found to be tachycardic and they were concerned about A. fib with RVR. EMS noted the patient was in A. fib but then reverted to a sinus rhythm. Patient does also note some darker stool which have been going on for several months. denies LOC, headache, fevers, chills, diaphoresis, visual changes, neck pain, chest pain, breathing difficulties, nausea, vomiting, back pain, melena, hematochezia, urinary symptoms, numbness, rash, or other complaints. ROS: See above HPI for pertinent positives & negatives. A total of 10 systems reviewed and were otherwise negative. PAST MEDICAL HISTORY:See Below , diabetes, COPD on oxygen PAST SURGICAL HISTORY:See Below, FAMILY HISTORY:See Below SOCIAL HISTORY:See Below, retired HOME MEDICATIONS:See Below ALLERGIES:See Below VITALS:See Below PHYSICAL EXAMINATION: GENERAL: Awake, tired-appearing, in no distress HENT: Normocephalic, atraumatic. Oropharynx unremarkable. EYES: Normal conjunctiva. Sclera non-icteric. NECK: Inspection normal. Non-tender. Supple. No nuchal rigidity. FROM. No masses. RESPIRATORY: Clear to auscultation. No wheezes. No rales. Normal respiratory effort. CARDIAC: Normal rate. Normal rhythm. No murmurs. No rubs. Extremities warm and well perfused. Pulses equal. No JVD. GI: Soft, non-distended. Mild generalized tenderness to palpation. No rebound or guarding. No masses. RECTAL: Deferred. MUSCULOSKELETAL: Atraumatic. Chest examination reveals no tenderness. The back is symmetrical on inspection without obvious abnormality. There is no CVA ten derness to palpation. No joint edema. LOWER EXTREMITIES: Calves are equal size bilaterally and non-tender. Trace edema. No discoloration. NEURO: Normal sensorium. No sensory or motor deficits noted. SKIN: No rash or jaundice noted. Basilio Hussein MD Past Med/Surg History Medical History (Updated 11/20/21 @ 01:24 by Basilio Hussein MD) Atelectasis of both lungs Cholelithiasis Chronic hypercapnic respiratory failure Hypertension Pulmonary nodule 1 cm or greater in diameter Will need repeat CT chest in 09/2021. Unstable angina (01/12/14) Surgical History History of cholecystectomy History of esophagogastroduodenoscopy History of heart surgery History of hip replacement, total History of shoulder surgery Family History Father Myocardial infarction Heart disease Sister Breast cancer Mother Stroke Family/Other Arthritis Brother Coronary heart disease Denies family history of Ovarian cancer Prostate cancer Colorectal cancer Social History (Updated 08/09/21 @ 15:26 by Ayanna Peraza LPN) Smoking Status: Former smoker Tobacco Type: Cigarettes Age Started Using Tobacco: 11; Age Quit Using Tobacco: 48; packs per day: 0.75; Second Hand Exposure: Yes; Hx Alcohol Use: No Hx Substance Use: No Preferred Language: Bulgarian Communication Ability: Effective Visual Impairment: Limited Hearing Ability: Hard of Hearing Fire Prevention Research Engineer Required: No Beliefs That Will Affect Care: None marital status: Current Living Situation: Family Current Living Situation Comment: lives with oldest daughter 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 many Children do You have: 2 Feels Safe at Home: Yes Childhood Exposure to Second-Hand Smoke: Yes caffeine: Yes (coffee) during the past year weight has: remained stable Dental Care, Regularly: No Physical Activity Frequency: Does not Exercise Seatbelt Use: always Sunscreen Use: No Assistive Devices: Glasses and Oxygen - Continuous Allergies Allergies Allergy/AdvReac Type Severity Reaction Status Date / Time amoxicillin Allergy Severe swelling Verified 11/19/21 19:37 of lips and throat, shortness of breath adhesive Allergy Intermediate rash/skin Verified 11/19/21 19:37 irritation Sulfa (Sulfonamide Allergy Intermediate HIVES Verified 11/19/21 19:37 Antibiotics) Home Meds Home Medications Medication Instructions Recorded Confirmed aspirin 81 mg chewable tablet 81 mg PO 06/18/19 11/19/21 atorvastatin 10 mg tablet 10 mg PO COUNT INCLUDES THE [facility] 06/18/19 11/19/21 clopidogrel 75 mg tablet 75 mg PO 06/18/19 11/19/21 isosorbide mononitrate 60 mg 60 mg PO COUNT INCLUDES THE [facility] 06/18/19 11/19/21 tablet,extended release 24 hr metoprolol tartrate 100 mg tablet 150 mg PO BID tab 06/18/19 11/19/21 nitroglycerin 0.8 mg/hr 1 patch TD QAM 06/18/19 11/19/21 transdermal 24 hour patch (Nitro-Dur) pantoprazole 40 mg tablet,delayed 40 mg PO QAM 06/18/19 11/19/21 release insulin glargine 100 unit/mL (3 45 unit SUBCUT HS 07/28/21 11/19/21 mL) subcutaneous pen (Lantus Solostar U-100 Insulin) ranolazine 500 mg tablet,extended 500 mg PO BID 07/28/21 11/19/21 release,12 hr Lactobacillus acidophilus 1 tab PO QPM 11/19/21 11/19/21 (Acidophilus) omega 6-lpw-ccm-fish oil 1,000 mg 1 cap PO DAILY 11/19/21 11/19/21 (120 mg-180 mg) capsule (Fish Oil) vitamin B complex 1 tab PO DAILY 11/19/21 11/19/21 Previous Rx's Medication Instructions Recorded gabapentin 100 mg capsule 100 mg PO HS #90 cap 02/07/21 pen needle, diabetic 31 gauge x #50 ea 03/21/2102/18" (BD Ultra-Fine Short Pen Needle) lancets 30 gauge (OneTouch Delneno #300 ea 04/20/21 Lancets) Miscellaneous Pulmonary Supply #1 ea 08/10/21 fluticasone furoate 200 1 inh INHALATION DAILY #28 ea 09/11/21 mcg-vilanterol 25 mcg/dose inhalation powder (Breo Ellipta) blood sugar diagnostic #300 ea 10/15/21 Results & Data (ED) Vital Signs Vital Signs - 24 hr 11/19/21 19:16 11/19/21 19:23 11/19/21 19:27 Temperature 37.2 C Temperature Source Oral Pulse Rate 95 H 94 H Pulse Rate from SpO2 Sensor 94 H Respiratory Rate 14 19 Respiratory Effort / Characteristics Non-Labored Spontaneous Blood Pressure 174/92 H Blood Pressure Mean 119 Blood Pressure Position Lying Pulse Oximetry 96 96 Oxygen Delivery Method Room Air Nasal Cannula Nasal Cannula Oxygen Flow Rate 3 3 Sepsis Recent Fever Within 48 Hours Yes Sepsis New/Unexplained Change in Mental Status No Sepsis Action Taken by Nursing No Action Required 11/19/21 19:29 11/19/21 19:30 11/19/21 19:40 Temperature Temperature Source Pulse Rate 96 H 107 H 97 H Pulse Rate from SpO2 Sensor 108 H 97 H Respiratory Rate 16 17 19 Respiratory Effort / Characteristics Blood Pressure Blood Pressure Mean Blood Pressure Position Pulse Oximetry 95 95 95 Oxygen Delivery Method Nasal Cannula Nasal Cannula Nasal Cannula Oxygen Flow Rate 3 3 3 Sepsis Recent Fever Within 48 Hours Sepsis New/Unexplained Change in Mental Status Sepsis Action Taken by Nursing 11/19/21 19:50 11/19/21 20:00 11/19/21 20:10 Temperature Temperature Source Pulse Rate 93 H 97 H 97 H Pulse Rate from SpO2 Sensor 93 H 97 H 97 H Respiratory Rate 24 17 Respiratory Effort / Characteristics Blood Pressure Blood Pressure Mean Blood Pressure Position Pulse Oximetry 95 96 95 Oxygen Delivery Method Nasal Cannula Nasal Cannula Nasal Cannula Oxygen Flow Rate 3 3 3 Sepsis Recent Fever Within 48 Hours Sepsis New/Unexplained Change in Mental Status Sepsis Action Taken by Nursing 11/19/21 20:20 11/19/21 20:42 11/19/21 20:50 Temperature Temperature Source Pulse Rate 97 H 110 H 96 H Pulse Rate from SpO2 Sensor 98 H 95 H 97 H Respiratory Rate 18 Respiratory Effort / Characteristics Blood Pressure Blood Pressure Mean Blood Pressure Position Pulse Oximetry 97 95 97 Oxygen Delivery Method Nasal Cannula Nasal Cannula Nasal Cannula Oxygen Flow Rate 3 3 3 Sepsis Recent Fever Within 48 Hours Sepsis New/Unexplained Change in Mental Status Sepsis Action Taken by Nursing 11/19/21 21:00 11/19/21 21:10 11/19/21 21:20 Temperature Temperature Source Pulse Rate 94 H 94 H 95 H Pulse Rate from SpO2 Sensor 96 H 94 H 95 H Respiratory Rate 21 20 20 Respiratory Effort / Characteristics Blood Pressure Blood Pressure Mean Blood Pressure Position Pulse Oximetry 95 95 95 Oxygen Delivery Method Nasal Cannula Nasal Cannula Nasal Cannula Oxygen Flow Rate 3 3 3 Sepsis Recent Fever Within 48 Hours Sepsis New/Unexplained Change in Mental Status Sepsis Action Taken by Nursing 11/19/21 21:30 11/19/21 21:40 11/19/21 21:50 Temperature Temperature Source Pulse Rate 98 H 95 H 99 H Pulse Rate from SpO2 Sensor 98 H 94 H 94 H Respiratory Rate 20 17 13 Respiratory Effort / Characteristics Blood Pressure Blood Pressure Mean Blood Pressure Position Pulse Oximetry 93 94 92 Oxygen Delivery Method Nasal Cannula Nasal Cannula Nasal Cannula Oxygen Flow Rate 3 3 3 Sepsis Recent Fever Within 48 Hours Sepsis New/Unexplained Change in Mental Status Sepsis Action Taken by Nursing 11/19/21 22:00 11/19/21 22:10 11/19/21 22:20 Temperature Temperature Source Pulse Rate 96 H 91 H 89 Pulse Rate from SpO2 Sensor 96 H 91 H 90 Respiratory Rate 22 15 15 Respiratory Effort / Characteristics Blood Pressure Blood Pressure Mean Blood Pressure Position Pulse Oximetry 94 96 94 Oxygen Delivery Method Nasal Cannula Nasal Cannula Nasal Cannula Oxygen Flow Rate 3 3 3 Sepsis Recent Fever Within 48 Hours Sepsis New/Unexplained Change in Mental Status Sepsis Action Taken by Nursing 11/19/21 22:30 Temperature Temperature Source Pulse Rate 94 H Pulse Rate from SpO2 Sensor 94 H Respiratory Rate 21 Respiratory Effort / Characteristics Blood Pressure 174/92 H Blood Pressure Mean 119 Blood Pressure Position Pulse Oximetry 94 Oxygen Delivery Method Nasal Cannula Oxygen Flow Rate 3 Sepsis Recent Fever Within 48 Hours Sepsis New/Unexplained Change in Mental Status Sepsis Action Taken by Nursing Laboratory Data Result diagrams: 11/19/21 19:30 11/19/21 19:30 Lab Results 11/19/21 11/19/21 11/19/21 Range/Units 19:30 19:30 19:30 WBC 6.55 (4.8-10.8) K/uL RBC 4.19 L (4.7-6.1) M/uL Hgb 12.3 L (14.0-18.0) g/dL Hct 38.6 L (42-52) % MCV 92.1 (80-100) fL MCH 29.4 (25-34) pg MCHC 31.9 L (32-36) g/dL RDW Std Deviation 48.2 H (36.4-46.3) fL RDW Coeff of Zully 14.3 (11.5-14.5) % Plt Count 158 (130-400) K/uL MPV 12.1 H (7.4-10.4) fL Immature Gran % (Auto) 0.5 % Neut % (Auto) 69.9 % Lymph % (Auto) 14.5 % [place] % (Auto) 10.5 % Eos % (Auto) 3.8 % Baso % (Auto) 0.8 % Neut # (Auto) 4.58 (1.4-6.5) K/uL Lymph # (Auto) 0.95 L (1.2-3.4) K/uL [place] # (Auto) 0.69 H (0.11-0.59) K/uL Eos # (Auto) 0.25 (0-0.5) K/uL Baso # (Auto) 0.05 (0-0.2) K/uL Immature Gran # (Auto) 0.03 H (0.00-0.02) K/uL Sodium 135 L (136-145) mmol/L Potassium 4.1 (3.5-5.1) mmol/L Chloride 99 (98-107) mmol/L Carbon Dioxide 27 (21-32) mmol/L Anion Gap 9 (3-11) BUN 17 (6-23) mg/dl Creatinine 1.40 (0.6-1.4) mg/dl Est Cr Clr Drug Dosing 42.0 ml/min Est GFR ( Amer) 53.5 ml/min Est GFR (Non-Af Amer) 46.1 ml/min BUN/Creatinine Ratio 12.1 (10-20) Glucose 285 H (70-99(Fasting)) mg/dl Lactate (0.4-2.0) mmol/L Calcium 9.1 (8.5-10.1) mg/dl Magnesium 1.6 L (1.7-2.4) mg/dl Total Bilirubin 0.9 (0.2-1.0) mg/dl AST 49 H (13-39) U/L ALT 38 (7-52) U/L Alkaline Phosphatase 74 (34-104) U/L Troponin I 1.05 H* (0-0.04) ng/ml B-Natriuretic Peptide (0-100) pg/ml Total Protein 7.1 (6.0-8.3) gm/dl Albumin 3.4 (3.4-5.0) gm/dl Globulin 3.7 (2.5-4.0) gm/dl Albumin/Globulin Ratio 0.9 (0.9-2) Lipase (11-82) U/L TSH 2.523 (0.300-4.500) uIu/ml Stl C. diff Tox B Gene (Neg) Stl C.difficile Tox A&B (Negative) SARS-CoV-2, RNA, NAAT (NEGATIVE) 11/19/21 11/19/21 11/19/21 Range/Units 19:30 19:36 20:40 WBC (4.8-10.8) K/uL RBC (4.7-6.1) M/uL Hgb (14.0-18.0) g/dL Hct (42-52) % MCV (80-100) fL MCH (25-34) pg MCHC (32-36) g/dL RDW Std Deviation (36.4-46.3) fL RDW Coeff of Zully (11.5-14.5) % Plt Count (130-400) K/uL MPV (7.4-10.4) fL Immature Gran % (Auto) % Neut % (Auto) % Lymph % (Auto) % [place] % (Auto) % Eos % (Auto) % Baso % (Auto) % Neut # (Auto) (1.4-6.5) K/uL Lymph # (Auto) (1.2-3.4) K/uL [place] # (Auto) (0.11-0.59) K/uL Eos # (Auto) (0-0.5) K/uL Baso # (Auto) (0-0.2) K/uL Immature Gran # (Auto) (0.00-0.02) K/uL Sodium (136-145) mmol/L Potassium (3.5-5.1) mmol/L Chloride (98-107) mmol/L Carbon Dioxide (21-32) mmol/L Anion Gap (3-11) BUN (6-23) mg/dl Creatinine (0.6-1.4) mg/dl Est Cr Clr Drug Dosing ml/min Est GFR ( Amer) ml/min Est GFR (Non-Af Amer) ml/min BUN/Creatinine Ratio (10-20) Glucose (70-99(Fasting)) mg/dl Lactate (0.4-2.0) mmol/L Calcium (8.5-10.1) mg/dl Magnesium (1.7-2.4) mg/dl Total Bilirubin (0.2-1.0) mg/dl AST (13-39) U/L ALT (7-52) U/L Alkaline Phosphatase (34-104) U/L Troponin I (0-0.04) ng/ml B-Natriuretic Peptide (0-100) pg/ml Total Protein (6.0-8.3) gm/dl Albumin (3.4-5.0) gm/dl Globulin (2.5-4.0) gm/dl Albumin/Globulin Ratio (0.9-2) Lipase 62 (11-82) U/L TSH (0.300-4.500) uIu/ml Stl C. diff Tox B Gene Positive Cdiff Gene H (Neg) Stl C.difficile Tox A&B Negative Cdiff Toxin (Negative) SARS-CoV-2, RNA, NAAT NEGATIVE (NEGATIVE) 11/19/21 11/19/21 Range/Units 21:40 21:40 WBC (4.8-10.8) K/uL RBC (4.7-6.1) M/uL Hgb (14.0-18.0) g/dL Hct (42-52) % MCV (80-100) fL MCH (25-34) pg MCHC (32-36) g/dL RDW Std Deviation (36.4-46.3) fL RDW Coeff of Zully (11.5-14.5) % Plt Count (130-400) K/uL MPV (7.4-10.4) fL Immature Gran % (Auto) % Neut % (Auto) % Lymph % (Auto) % [place] % (Auto) % Eos % (Auto) % Baso % (Auto) % Neut # (Auto) (1.4-6.5) K/uL Lymph # (Auto) (1.2-3.4) K/uL [place] # (Auto) (0.11-0.59) K/uL Eos # (Auto) (0-0.5) K/uL Baso # (Auto) (0-0.2) K/uL Immature Gran # (Auto) (0.00-0.02) K/uL Sodium (136-145) mmol/L Potassium (3.5-5.1) mmol/L Chloride (98-107) mmol/L Carbon Dioxide (21-32) mmol/L Anion Gap (3-11) BUN (6-23) mg/dl Creatinine (0.6-1.4) mg/dl Est Cr Clr Drug Dosing ml/min Est GFR ( Amer) ml/min Est GFR (Non-Af Amer) ml/min BUN/Creatinine Ratio (10-20) Glucose (70-99(Fasting)) mg/dl Lactate 1.1 (0.4-2.0) mmol/L Calcium (8.5-10.1) mg/dl Magnesium (1.7-2.4) mg/dl Total Bilirubin (0.2-1.0) mg/dl AST (13-39) U/L ALT (7-52) U/L Alkaline Phosphatase (34-104) U/L Troponin I (0-0.04) ng/ml B-Natriuretic Peptide 181 H (0-100) pg/ml Total Protein (6.0-8.3) gm/dl Albumin (3.4-5.0) gm/dl Globulin (2.5-4.0) gm/dl Albumin/Globulin Ratio (0.9-2) Lipase (11-82) U/L TSH (0.300-4.500) uIu/ml Stl C. diff Tox B Gene (Neg) Stl C.difficile Tox A&B (Negative) SARS-CoV-2, RNA, NAAT (NEGATIVE) Administered Medications Magnesium Sulfate/Dextrose (Magnesium Sulfate / D5w) 1 gm in 100 mls @ 50 mls/hr IV Q2H ARMINDA Stop: 11/20/21 02:53 Last Admin: 11/20/21 01:14 Dose: 50 mls/hr Documented by: [id number] Infusion: 11/20/21 01:07 Dose: 0 mls/hr Documented by: [id number] Admin: 11/19/21 23:13 Dose: 50 mls/hr Documented by: [id number] Discontinued Medications Raspberry (Raspberry Syrup 5 Ml Udp) 5 ml PO ONE ONE Stop: 11/19/21 21:46 Last Admin: 11/19/21 22:20 Dose: 5 ml Documented by: [id number] Vancomycin HCl (Vancomycin Hcl 125 Mg/2.5ml Soln) 125 mg PO NOW STA Stop: 11/19/21 21:20 Last Admin: 11/19/21 22:20 Dose: 125 mg Documented by: [id number] Imaging Data Radiologist's Impression: Abdomen/Pelvis CT 11/19/21 19:[address] WITHOUT CONTRAST CT DOSE: 737.48 mGy.cm HISTORY: Acute generalized abdominal pain with weakness abd pain, diff urin ating, weakness TECHNIQUE: Multiaxial CT images of the abdomen and pelvis were performed without contrast. A dose lowering technique was utilized adhering to the principles of ALARA. COMPARISON STUDY: CT abdomen and pelvis 10/01/2016, CTA chest 08/02/2021 FINDINGS: Cardiomegaly with extensive coronary artery calcifications. Bibasilar bronchial wall thickening with mucous plugging, groundglass densities with mild linear consolidation and subpleural reticulation. Trace pleural effusions. No pneumatosis or pneumoperitoneum. Limited evaluation of the solid abdominal organs without the use of IV contrast. Hepatic steatosis with marginal nodularity of the liver. Cholecystectomy. Questioned interstitial edema involving the pancreas. Unremarkable adrenal glands. Recanalization of the umbilical vein with upper abdominal varices. Nonspecific bilateral perinephric stranding.. There is a 5 mm linear calcification noted within the region of the left renal pelvis on image 202. Mild pelviectasis without anuj hydronephrosis. Mild urinary bladder wall thickening with partial distention. Extensive atherosclerotic plaque of the abdominal aorta and iliac arteries. Prostamegaly. Pelvic structures are suboptimally visualized secondary to streak artifact from bilateral hip total joint arthroplasties. There are a few prominent retroperitoneal and periportal lymph nodes measuring up to 9 mm which are nonspecific. Duodenal diverticulum. Mild nonspecific distal esophageal wall thickening. Trace abdominal pelvic ascites with mild generalized mesenteric edema. There is wall thickening noted throughout the majority of the colon with pericolonic stranding. Normal appendix. No small bowel obstruction. Unremarkable soft tissues. No acute fracture. IMPRESSION: 1. Hepatic steatosis with cirrhosis and trace abdominal pelvic ascites. 2. There is wall thickening throughout the majority of the colon and rectum with mild pericolonic stranding. Findings may be secondary to portal colopathy versus a nonspecific infectious or inflammatory colitis. 3. No bowel obstruction. 4. Trace pleural effusions with mild bibasilar atelectasis/scarring. 5. 5 mm calcification of the left renal pelvis without anuj hydronephrosis. 6. Additional findings as above. ACT 112: Negative or not required by law. The above report was generated using voice recognition software. It may contain grammatical, syntax or spelling errors. Electronically signed by: Yevgeniy Mares M.D. 11/19/2021 9:18 PM Chest X-Ray 11/19/21 19:29 XR chest 1V portable HISTORY: 81 years-old Male weakness acute weakness COMPARISON: CT abdomen and pelvis of same day, chest radiographs 07/31/2021 TECHNIQUE: Portable AP view of the chest FINDINGS: Cardiac silhouette is enlarged. Calcified plaque of the thoracic aorta. Mild pulmonary vascular congestion without overt pulmonary edema. Subsegmental b ibasilar densities. Degenerative changes of the shoulders and spine. IMPRESSION: 1. Cardiomegaly with pulmonary vascular congestion. 2. Mild bibasilar opacities suggestive of atelectasis versus pneumonitis. ACT 112: Negative or not required by law. The above report was generated using voice recognition software. It may contain grammatical, syntax or spelling errors. Electronically signed by: Yevgeniy Mares M.D. 11/19/2021 8:55 PM Discharge Plan Visit Data Chief Complaint: Weakness Stated Complaint: WEAKNESS, LETHARGY, FATIGUE [id number] ED Provider: Basilio Hussein Discharge Problem: Elevated troponin, Colitis, Clostridioides difficile infection, Clostridioides difficile toxin not detected, Nephrolithiasis Patient Disposition: Admitted As Inpatient Discharge Instructions Interventions: ED Discharge Assessment Last Done: 11/20/21 02:01
[2021-11-20] MEDS ORDERED: GLUCOSE 10 TABS/TUBE PO PRN (01:32)
[2021-11-20] MEDS ORDERED: CARBOHYDRATES FOR HYPOGLYCEMIA PO PRN (01:32)
[2021-11-20] MEDS ORDERED: GLUCAGON FOR INJ 1 MG VIAL SQ PRN (01:32)
[2021-11-20] MEDS ORDERED: DEXTROSE 50% 50 ML SYRINGE IV PRN (01:32)
[2021-11-20] MEDS ORDERED: TAMSULOSIN HCL 0.4 MG CAP PO ONE (01:32)
[2021-11-20] MEDS ORDERED: ONDANSETRON INJ 2 MG/ML 2 ML VIAL IV PRN (01:32)
[2021-11-20] MEDS ORDERED: GLUCOSE 40% GEL 15 GM TUBE PO PRN (01:32)
[2021-11-20] MEDS ORDERED: ACETAMINOPHEN 325 MG TAB PO PRN (01:32)
[2021-11-20] MEDS: INSULIN ASPART PER UNIT SC SCH ×5 (04:27→22:16)
[2021-11-20] MEDS: INSULIN GLARGINE SOLOSTAR 100 UNITS/ML 3 ML PEN SQ SCH ×2 (04:28→22:15)
[2021-11-20 04:35] LABS: Basophils # (auto) 0.05 K/uL (0-0.2); Basophils % (auto) 0.7 %; Eosinophils # (auto) 0.26 K/uL (0-0.5); Eosinophils % (auto) 3.8 %; Hematocrit (blood only) 42.8 % (42-52); Hemoglobin 13.7 g/dL (14.0-18.0); Immature Granulocytes # (auto) 0.04 K/uL (0.00-0.02); Immature Granulocytes % (auto) 0.6 %; Lymphocytes % (auto) 17.5 %; Mean Corpuscular Hemoglobin 29.7 pg (25-34); Mean Corpuscular Volume 92.6 fL (80-100); Mean Platelet Volume 12.1 fL (7.4-10.4); Monocytes # (auto) 0.61 K/uL (0.11-0.59); Monocytes % (auto) 8.9 %; Neutrophils # (auto) 4.69 K/uL (1.4-6.5); Neutrophils % (auto) 68.5 %; Platelet Count 185 K/uL (130-400); RDW Coefficient of Variation 14.4 % (11.5-14.5); RDW Standard Deviation 48.3 fL (36.4-46.3); Red Blood Count 4.62 M/uL (4.7-6.1); White Blood Count 6.85 K/uL (4.8-10.8)
[2021-11-20 04:46] LABS: INR 1.1 (0.9-1.1); Partial Thromboplastin Time 26.3 Seconds (21.0-31.0); Prothrombin Time 10.7 Seconds (9.0-12.0)
[2021-11-20 04:56] LABS: Albumin Level 3.2 gm/dl (3.4-5.0); BUN Creatinine Ratio 11.9 (10-20); Calcium 8.9 mg/dl (8.5-10.1); Creatinine Clr Calc Pharmacy 46.7 ml/min; Est GFR (African American) 60.7 ml/min; Est GFR (Non-African American) 52.4 ml/min; Magnesium 2.2 mg/dl (1.7-2.4); Phosphorus 2.9 mg/dl (2.5-4.9); Potassium 3.8 mmol/L (3.5-5.1)
[2021-11-20 05:21] LABS: Troponin I 1.14 ng/ml (0-0.04)
[2021-11-20] MEDS: RASPBERRY SYRUP 5 ML UDP PO SCH ×4 (06:19→23:48)
[2021-11-20] MEDS: VANCOMYCIN HCL 250 MG/5 ML SOLN PO SCH ×4 (06:19→23:48)
[2021-11-20 07:29] LABS: Estimated Average Glucose 263 mg/dl; Hemoglobin A1C 10.8 % (4.5-5.6)
[2021-11-20] MEDS: ATORVASTATIN 10 MG TAB PO SCH (08:32)
[2021-11-20] MEDS: VITAMIN B COMPLEX TAB PO SCH (08:32)
[2021-11-20] MEDS: NITROGLYCERIN 0.4 MG/HR PATCH TD SCH (08:33)
[2021-11-20] MEDS: ISOSORBIDE MONO EXTENDED REL 60 MG TABCR PO SCH (08:33)
[2021-11-20] MEDS: SODIUM CHLORIDE 0.9% 1000ML 1,000 ML IV SCH ×2 (08:33→22:20)
[2021-11-20] MEDS: HEPARIN SOD 5,000 UNIT/0.5 ML VIAL SQ SCH ×2 (08:33→22:14)
[2021-11-20] MEDS: FLUTICASONE/VILANTEROL 200/25MCG 14 PUFFS/INHALER INH SCH (08:34)
[2021-11-20] MEDS ORDERED: NITROGLYCERIN TD SCH (09:00)
[2021-11-20] MEDS ORDERED: METOPROLOL TARTRATE 1 MG/ML VIAL IV ONE (09:39)
[2021-11-20] MEDS ORDERED: METOPROLOL TARTRATE 1 MG/ML VIAL IV PRN (10:05)
--- NOTE | 2021-11-20 11:10 | XCELERA ---
[id number]
--- NOTE | 2021-11-20 11:44 | Electrocardiogram Report ---
Test Reason : Blood Pressure : / mmHG Vent. Rate : 095 BPM Atrial Rate : 095 BPM P-R Int : 154 ms QRS Dur : 134 ms QT Int : 380 ms P-R-T Axes : 037 003 152 degrees QTc Int : 477 ms Normal sinus rhythm Left atrial enlargement Left bundle branch block Abnormal ECG When compared with ECG of 03-AUG-2021 09:43, MO interval has decreased QRS axis Shifted left T wave inversion no longer evident in Inferior leads T wave inversion now evident in Lateral leads Confirmed by Adonay Clarke ([id number]) on 11/20/2021 11:43:50 AM Referred By: REFERRED SELF Confirmed By:Adonay Clarke
--- NOTE | 2021-11-20 11:54 | Electrocardiogram Report ---
Test Reason : Blood Pressure : / mmHG Vent. Rate : 146 BPM Atrial Rate : 125 BPM P-R Int : 000 ms QRS Dur : 134 ms QT Int : 336 ms P-R-T Axes : 000 012 173 degrees QTc Int : 523 ms Atrial fibrillation with rapid ventricular response with premature ventricular or aberrantly conducte d complexes Left bundle branch block Abnormal ECG When compared with ECG of 19-NOV-2021 19:24, Atrial fibrillation has replaced Sinus rhythm Vent. rate has increased BY 51 BPM Confirmed by Adonay Clarke ([id number]) on 11/20/2021 11:54:20 AM Referred By: REFERRED SELF Confirmed By:Adonay Clarke
[2021-11-20] MEDS: METOPROLOL TARTRATE 25 MG TAB PO SCH ×2 (12:06→22:13)
[2021-11-20] MEDS ORDERED: STAT IV Infusion **Titration per Protocol STA (12:34)
[2021-11-20] MEDS ORDERED: 0.2 MICRON FILTER SET 1 EA IV ONE (12:34)
[2021-11-20] MEDS ORDERED: AMIODARONE IV BOLUS & DRIP IV STA (12:34)
--- NOTE | 2021-11-20 12:42 | Cardiology Consultation ---
Date of Consultation November 20, 2021 Assessment & Plan (1) Paroxysmal atrial fibrillation: (2) Elevated troponin I level: (3) Hypomagnesemia: (4) Clostridioides difficile infection: (5) CAD (coronary artery disease): (6) LBBB (left bundle branch block): Patient admitted for generalized weakness, found to have Afib RVR by EMS, converting to NSR by the time he reached ER. +C.diff gene - Vanco started. Troponin was elevated on arrival but no chest pain reported. EKG was NSR with c hronic LBBB. He then developed recurrent afib RVR during ER evaluation with associated chest pain. initially treated with IV metoprolol 5 mg, which aided HR's and chest pain resolved. Does not appear he has had afib in the past. He is on chronic dual antiplatelet therapy due to multivessel CAD. given acute GI issues with C.Diff, hesitant to initiate IV heparin. At risk for GI bleed. Antiarrhythmic therapy likely indicated. He has a long history of elevated LFTs, although not significantly elevated at this time. CT scan demonstrates cirrhosis, consistent with history. Normal TSH Likely recommend initiation of amiodarone. Will discuss first with Dr. Armstrong. Await echo results. Currently, with HR's improved, patient was chest pain free. Troponin elevation, Likely Type II demand ischemic event in setting of acute GI illness and afib RVR with underlying coronary artery disease. Case discussed with Dr. Armstrong. will follow. Supervising Physician Co-Signing Physician Notes Supervising Physician Attestation: I have personally performed a history and physical examination on the patient. I agree with the physician certified physical therapist assistant's findings and plan as documented with the following additions. Subjective: Patient initially seen by the undersigned in the emergency department, room B5 B. He is reassessed in the PCU, room 233. He is sitting upright. Feeling much improved. Upset stomach improved. No additional chest pain. Review of telemetry, he converted from atrial fibrillation with RVR back to sinus rhythm today 11/20/2021 at 1345 . Per review of the telemetry and the timing of the amiodarone bolus, he converted back to sinus rhythm just prior to or during the amiodarone loading bolus. Exam: Cardiovascular regular rhythm, no murmur Extremities no edema Lungs: Clear to auscultation Data: Echocardiogram performed today revealed abnormal septal motion consistent with left bundle branch block, borderline aortic root dilatation, mild ascending aortic aorta dilatation, 3.9 cm, mild mitral regurgitation, LVEF 50 to 55%. Troponin I 0.105--> 1.14--> 1.05 Assessment and Plan: Clinical presentation concerning for acute colitis Longstanding history of coronary heart disease with stable exertional angina at baseline Mild troponin elevation, angina in the setting of acute noncardiac illness, and A. fib with RVR. -Continue short-term amiodarone for now, this is not an ideal medication given his history of liver disease, will use it is a short bridge. -Hold off on anticoagulation, as this was a short-lived episode of atrial fibrillation, in an effort to avoid bleeding complication. DVT prophylaxis: Subcutaneous heparin Gurdeep Armstrong, History of Present Illness Reason for Consultation: Weakness; Afib RVR; Elevated troponin Requesting Physician: Dr. Garrett Attending Physician: Dr. Armstrong History of Present Illness Patient is a complex 81 year old male who is known to [facility], following with Luis Alonso PA-C. History includes: 1.Multivessel atherosclerotic coronary artery disease. 1.November 2005 cardiac catheterization demonstrating multivessel coronary artery disease with severely calcified coronaries, serial LAD stenoses s/p angioplasty x 3, 90% large first OM stenosis, 50% proximal LPL stenosis, and a total 100% mid right coronary occlusion with the RPL and PDA branches filling via [id number] collaterals. LVEF was 55% without MR or aortic gradient. 2.Catheterization complicated by balloon rupture and associated ST segment elevation. 2.Chronic left bundle branch block 3.Hypertension, hypertensive heart disease (moderate concentric LVH on prior echo) 4.Diastolic dysfunction with admission in Aug 2021 for acute CHF/respiratory failure 5.Hyperlipidemia 6.Chronically abnormal LFT's with underlying cirrhosis per prior CT 7.Type 2 diabetes mellitus with microalbuminuria, long-term insulin use 8.History of tobacco abuse with COPD Patient was evaluated yesterday at home by his home nurse. They found him significantly weak and having issues with diarrhea/loose stools for many days. EMS was summoned. Apparenlty on arrival, EKG demonstrated afib RVR. However, by the time patient reached ER he was in NSR. He tested + for c.diff gene, but negative for toxin. However, given his acute clinic picture with abdominal pain/diarrhea, started on Vanco. Troponin on arrival was elevated at 1.0. EKG demonstrated chronic LBBB, without change. He denied acute chest pain at the time. Cardiology was consulted. At time of consult, upon entering room, patient was in NSR, however he then developed rapid afib RVR during conversation. He noted mild chest tightness and HR's were 150-160 bmp. Nurse was instructed to give IV metoprolol 5 mg which aided his symptoms and HR's. he remained in persistent afib around 100-110. Chest pain resolved with improved rates. Prior to admission, patient denies recent or recurrent chest pain. Denies worsening SOB. His only complaint is ongoing fatigue/lethargy and weakness. Per review of outpatient records, no apparent history of afib. He is on dual an ti platelet therapy given chronic calcific CAD. Allergies Allergy/AdvReac Type Severity Reaction Status Date / Time amoxicillin Allergy Severe swelling Verified 11/19/21 19:37 of lips and throat, shortness of breath adhesive Allergy Intermediate rash/skin Verified 11/19/21 19:37 irritation Sulfa (Sulfonamide Allergy Intermediate HIVES Verified 11/19/21 19:37 Antibiotics) Home Medications Medication Instructions Recorded Confirmed Type aspirin 81 mg chewable tablet 81 mg PO HS 06/18/19 11/19/21 History atorvastatin 10 mg tablet 10 mg PO QAM 06/18/19 11/19/21 History clopidogrel 75 mg tablet 75 mg PO HS 06/18/19 11/19/21 History isosorbide mononitrate 60 mg 60 mg PO QAM 06/18/19 11/19/21 History tablet,extended release 24 hr metoprolol tartrate 100 mg tablet 150 mg PO BID tab 06/18/19 11/19/21 History nitroglycerin 0.8 mg/hr 1 patch TD QAM 06/18/19 11/19/21 History transdermal 24 hour patch (Nitro-Dur) pantoprazole 40 mg tablet,delayed 40 mg PO QAM 06/18/19 11/19/21 History release gabapentin 100 mg capsule 100 mg PO HS #90 cap 02/07/21 11/19/21 Rx pen needle, diabetic 31 gauge x #50 ea 03/21/21 08/09/21 Rx 02/18" (BD Ultra-Fine Short Pen Needle) lancets 30 gauge ([facility] #300 ea 04/20/21 08/09/21 Rx Lancets) insulin glargine 100 unit/mL (3 45 unit SUBCUT HS 07/28/21 11/19/21 History mL) subcutaneous pen (Lantus Solostar U-100 Insulin) ranolazine 500 mg tablet,extended 500 mg PO BID 07/28/21 11/19/21 History release,12 hr Miscellaneous Pulmonary Supply #1 ea 08/10/21 Rx fluticasone furoate 200 1 inh INHALATION DAILY #28 ea 09/11/21 11/19/21 Rx mcg-vilanterol 25 mcg/dose inhalation powder (Breo Ellipta) blood sugar diagnostic #300 ea 10/15/21 Rx Lactobacillus acidophilus 1 tab PO QPM 11/19/21 11/19/21 History (Acidophilus) omega 9-hyh-rec-fish oil 1,000 mg 1 cap PO DAILY 11/19/21 11/19/21 History (120 mg-180 mg) capsule (Fish Oil) vitamin B complex 1 tab PO DAILY 11/19/21 11/19/21 History Patient History Medical History (Updated 11/20/21 @ 13:31 by Alexia Jauregui PA-C) Atelectasis of both lungs Cholelithiasis Chronic hypercapnic respiratory failure GERD (gastroesophageal reflux disease) Hypertension Pulmonary nodule 1 cm or greater in diameter Will need repeat CT chest in 09/2021. Unstable angina (01/12/14) Surgical History History of cholecystectomy History of esophagogastroduodenoscopy History of heart surgery History of hip replacement, total History of shoulder surgery Family History Father Myocardial infarction Heart disease Sister Breast cancer Mother Stroke Family/Other Arthritis Brother Coronary heart disease Denies family history of Ovarian cancer Prostate cancer Colorectal cancer Social History (Updated 08/09/21 @ 15:26 by Ayanna Peraza LPN) Smoking Status: Former smoker Tobacco Type: Cigarettes Age Started Using Tobacco: 11; Age Quit Using Tobacco: 48; packs per day: 0.75; Second Hand Exposure: No; Hx Alcohol Use: No Hx Substance Use: No Preferred Language: Spanish Communication Ability: Impaired Visual Impairment: Limited Hearing Ability: Hard of Hearing Boat Builder Required: No Beliefs That Will Affect Care: None marital status: Single Current Living Situation: Family Current Living Situation Comment: lives with oldest daughter 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 many Children do You have: 1 Feels Safe at Home: Yes Childhood Exposure to Second-Hand Smoke: Yes caffeine: Yes (coffee) during the past year weight has: remained stable Dental Care, Regularly: No Physical Activity Frequency: Does not Exercise Seatbelt Use: always Sunscreen Use: No Assistive Devices: Walker Review of Systems Review of Systems: All systems reviewed & are unremarkable except as noted in HPI & below Physical Exam Constitutional: WD/WN, vitals as above + obese; no acute distress Eyes: PERRL, conjunctivae normal, anicteric sclerae ENMT: external ear and nose normal, oropharynx normal Neck: trachea midline, no thyromegaly Respiratory: normal respiratory effort; no labored breathing Cardiovascular: Rate/Rhythm: + tachycardic Heart Sounds: no murmur Vessels: no JVD Extremities: no edema Gastrointestinal (Abdomen): Inspection/Auscultation: + abdomen distended and normal bowel sounds Skin: no rashes, warm and dry Psychiatric: A+Ox3, euthymic affect Results & Data ([facility]) Vital Signs (Past 12 Hours) Vital Signs Temp Pulse Pulse Resp BP BP BP 11/20/21 12:05 118 H 104/65 11/20/21 10:10 106 H 20 96/60 L 11/20/21 09:44 154 H 11/20/21 09:40 142 H 125/82 11/20/21 08:31 37 C 80 18 109/37 L 11/20/21 04:57 73 18 130/66 11/20/21 04:55 11/20/21 02:01 77 16 137/63 11/20/21 01:00 78 18 131/68 Pulse Ox Pulse Ox 11/20/21 12:05 11/20/21 10:10 96 11/20/21 09:44 11/20/21 09:40 11/20/21 08:31 92 11/20/21 04:57 94 11/20/21 04:55 94 11/20/21 02:01 93 11/20/21 01:00 94 Laboratory Results 02/11/20/21 11/20/21 Range/Units 12:32 08:43 04:18 WBC (4.8-10.8) K/uL RBC (4.7-6.1) M/uL Hgb (14.0-18.0) g/dL Hct (42-52) % MCV (80-100) fL MCH (25-34) pg MCHC (32-36) g/dL RDW Std Deviation (36.4-46.3) fL RDW Coeff of Zully (11.5-14.5) % Plt Count (130-400) K/uL MPV (7.4-10.4) fL Immature Gran % (Auto) % Neut % (Auto) % Lymph % (Auto) % [place] % (Auto) % Eos % (Auto) % Baso % (Auto) % Neut # (Auto) (1.4-6.5) K/uL Lymph # (Auto) (1.2-3.4) K/uL Den[place] # (Auto) (0.11-0.59) K/uL Eos # (Auto) (0-0.5) K/uL Baso # (Auto) (0-0.2) K/uL Immature Gran # (Auto) (0.00-0.02) K/uL PT 10.7 (9.0-12.0) Seconds INR 1.1 (0.9-1.1) APTT 26.3 (21.0-31.0) Seconds PTT Ratio 1.0 Sodium (136-145) mmol/L Potassium (3.5-5.1) mmol/L Chloride (98-107) mmol/L Carbon Dioxide (21-32) mmol/L Anion Gap (3-11) BUN (6-23) mg/dl Creatinine (0.6-1.4) mg/dl Est Cr Clr Drug Dosing ml/min Est GFR ( Amer) ml/min Est GFR (Non-Af Amer) ml/min BUN/Creatinine Ratio (10-20) Glucose (70-99(Fasting)) mg/dl POC Glucose 194 H 172 H (70-99) mg/dl Estimat Average Glucose mg/dl Hemoglobin A1c (4.5-5.6) % Lactate (0.4-2.0) mmol/L Calcium (8.5-10.1) mg/dl Phosphorus (2.5-4.9) mg/dl Magnesium (1.7-2.4) mg/dl Total Bilirubin (0.2-1.0) mg/dl AST (13-39) U/L ALT (7-52) U/L Alkaline Phosphatase (34-104) U/L Troponin I (0-0.04) ng/ml B-Natriuretic Peptide (0-100) pg/ml Total Protein (6.0-8.3) gm/dl Albumin (3.4-5.0) gm/dl Globulin (2.5-4.0) gm/dl Albumin/Globulin Ratio (0.9-2) Lipase (11-82) U/L TSH (0.300-4.500) uIu/ml Stl C. diff Tox B Gene (Neg) Stl C.difficile Tox A&B (Negative) SARS-CoV-2, RNA, NAAT (NEGATIVE) 11/20/21 11/20/21 11/20/21 Range/Units 04:18 04:18 04:18 WBC 6.85 (4.8-10.8) K/uL RBC 4.62 L (4.7-6.1) M/uL Hgb 13.7 L (14.0-18.0) g/dL Hct 42.8 (42-52) % MCV 92.6 (80-100) fL MCH 29.7 (25-34) pg MCHC 32.0 (32-36) g/dL RDW Std Deviation 48.3 H (36.4-46.3) fL RDW Coeff of Zully 14.4 (11.5-14.5) % Plt Count 185 (130-400) K/uL MPV 12.1 H (7.4-10.4) fL Immature Gran % (Auto) 0.6 % Neut % (Auto) 68.5 % Lymph % (Auto) 17.5 % Denali % (Auto) 8.9 % Eos % (Auto) 3.8 % Baso % (Auto) 0.7 % Neut # (Auto) 4.69 (1.4-6.5) K/uL Lymph # (Auto) 1.20 (1.2-3.4) K/uL Denali # (Auto) 0.61 H (0.11-0.59) K/uL Eos # (Auto) 0.26 (0-0.5) K/uL Baso # (Auto) 0.05 (0-0.2) K/uL Immature Gran # (Auto) 0.04 H (0.00-0.02) K/uL PT (9.0-12.0) Seconds INR (0.9-1.1) APTT (21.0-31.0) Seconds PTT Ratio Sodium 135 L (136-145) mmol/L Potassium 3.8 (3.5-5.1) mmol/L Chloride 100 (98-107) mmol/L Carbon Dioxide 28 (21-32) mmol/L Anion Gap 7 (3-11) BUN 15 (6-23) mg/dl Creatinine 1.26 (0.6-1.4) mg/dl Est Cr Clr Drug Dosing 46.7 ml/min Est GFR ( Amer) 60.7 ml/min Est GFR (Non-Af Amer) 52.4 ml/min BUN/Creatinine Ratio 11.9 (10-20) Glucose 251 H (70-99(Fasting)) mg/dl POC Glucose (70-99) mg/dl Estimat Average Glucose 263 mg/dl Hemoglobin A1c 10.8 H (4.5-5.6) % Lactate (0.4-2.0) mmol/L Calcium 8.9 (8.5-10.1) mg/dl Phosphorus 2.9 (2.5-4.9) mg/dl Magnesium 2.2 (1.7-2.4) mg/dl Total Bilirubin (0.2-1.0) mg/dl AST (13-39) U/L ALT (7-52) U/L Alkaline Phosphatase (34-104) U/L Troponin I 1.14 H* (0-0.04) ng/ml B-Natriuretic Peptide (0-100) pg/ml Total Protein (6.0-8.3) gm/dl Albumin 3.2 L (3.4-5.0) gm/dl Globulin (2.5-4.0) gm/dl Albumin/Globulin Ratio (0.9-2) Lipase (11-82) U/L TSH (0.300-4.500) uIu/ml Stl C. diff Tox B Gene (Neg) Stl C.difficile Tox A&B (Negative) SARS-CoV-2, RNA, NAAT (NEGATIVE) 11/20/21 11/19/21 11/19/21 Range/Units 04:01 21:40 21:40 WBC (4.8-10.8) K/uL RBC (4.7-6.1) M/uL Hgb (14.0-18.0) g/dL Hct (42-52) % MCV (80-100) fL MCH (25-34) pg MCHC (32-36) g/dL RDW Std Deviation (36.4-46.3) fL RDW Coeff of Zully (11.5-14.5) % Plt Count (130-400) K/uL MPV (7.4-10.4) fL Immature Gran % (Auto) % Neut % (Auto) % Lymph % (Auto) % [place] % (Auto) % Eos % (Auto) % Baso % (Auto) % Neut # (Auto) (1.4-6.5) K/uL Lymph # (Auto) (1.2-3.4) K/uL [place] # (Auto) (0.11-0.59) K/uL Eos # (Auto) (0-0.5) K/uL Baso # (Auto) (0-0.2) K/uL Immature Gran # (Auto) (0.00-0.02) K/uL PT (9.0-12.0) Seconds INR (0.9-1.1) APTT (21.0-31.0) Seconds PTT Ratio Sodium (136-145) mmol/L Potassium (3.5-5.1) mmol/L Chloride (98-107) mmol/L Carbon Dioxide (21-32) mmol/L Anion Gap (3-11) BUN (6-23) mg/dl Creatinine (0.6-1.4) mg/dl Est Cr Clr Drug Dosing ml/min Est GFR ( Amer) ml/min Est GFR (Non-Af Amer) ml/min BUN/Creatinine Ratio (10-20) Glucose (70-99(Fasting)) mg/dl POC Glucose 229 H (70-99) mg/dl Estimat Average Glucose mg/dl Hemoglobin A1c (4.5-5.6) % Lactate 1.1 (0.4-2.0) mmol/L Calcium (8.5-10.1) mg/dl Phosphorus (2.5-4.9) mg/dl Magnesium (1.7-2.4) mg/dl Total Bilirubin (0.2-1.0) mg/dl AST (13-39) U/L ALT (7-52) U/L Alkaline Phosphatase (34-104) U/L Troponin I (0-0.04) ng/ml B-Natriuretic Peptide 181 H (0-100) pg/ml Total Protein (6.0-8.3) gm/dl Albumin (3.4-5.0) gm/dl Globulin (2.5-4.0) gm/dl Albumin/Globulin Ratio (0.9-2) Lipase (11-82) U/L TSH (0.300-4.500) uIu/ml Stl C. diff Tox B Gene (Neg) Stl C.difficile Tox A&B (Negative) SARS-CoV-2, RNA, NAAT (NEGATIVE) 11/19/21 11/19/21 11/19/21 Range/Units 20:40 19:36 19:30 WBC (4.8-10.8) K/uL RBC (4.7-6.1) M/uL Hgb (14.0-18.0) g/dL Hct (42-52) % MCV (80-100) fL MCH (25-34) pg MCHC (32-36) g/dL RDW Std Deviation (36.4-46.3) fL RDW Coeff of Zully (11.5-14.5) % Plt Count (130-400) K/uL MPV (7.4-10.4) fL Immature Gran % (Auto) % Neut % (Auto) % Lymph % (Auto) % [place] % (Auto) % Eos % (Auto) % Baso % (Auto) % Neut # (Auto) (1.4-6.5) K/uL Lymph # (Auto) (1.2-3.4) K/uL [place] # (Auto) (0.11-0.59) K/uL Eos # (Auto) (0-0.5) K/uL Baso # (Auto) (0-0.2) K/uL Immature Gran # (Auto) (0.00-0.02) K/uL PT (9.0-12.0) Seconds INR (0.9-1.1) APTT (21.0-31.0) Seconds PTT Ratio Sodium (136-145) mmol/L Potassium (3.5-5.1) mmol/L Chloride (98-107) mmol/L Carbon Dioxide (21-32) mmol/L Anion Gap (3-11) BUN (6-23) mg/dl Creatinine (0.6-1.4) mg/dl Est Cr Clr Drug Dosing ml/min Est GFR ( Amer) ml/min Est GFR (Non-Af Amer) ml/min BUN/Creatinine Ratio (10-20) Glucose (70-99(Fasting)) mg/dl POC Glucose (70-99) mg/dl Estimat Average Glucose mg/dl Hemoglobin A1c (4.5-5.6) % Lactate (0.4-2.0) mmol/L Calcium (8.5-10.1) mg/dl Phosphorus (2.5-4.9) mg/dl Magnesium (1.7-2.4) mg/dl Total Bilirubin (0.2-1.0) mg/dl AST (13-39) U/L ALT (7-52) U/L Alkaline Phosphatase (34-104) U/L Troponin I (0-0.04) ng/ml B-Natriuretic Peptide (0-100) pg/ml Total Protein (6.0-8.3) gm/dl Albumin (3.4-5.0) gm/dl Globulin (2.5-4.0) gm/dl Albumin/Globulin Ratio (0.9-2) Lipase 62 (11-82) U/L TSH (0.300-4.500) uIu/ml Stl C. diff Tox B Gene Positive Cdiff Gene H (Neg) Stl C.difficile Tox A&B Negative Cdiff Toxin (Negative) SARS-CoV-2, RNA, NAAT NEGATIVE (NEGATIVE) 11/19/21 11/19/21 11/19/21 Range/Units 19:30 19:30 19:30 WBC 6.55 (4.8-10.8) K/uL RBC 4.19 L (4.7-6.1) M/uL Hgb 12.3 L (14.0-18.0) g/dL Hct 38.6 L (42-52) % MCV 92.1 (80-100) fL MCH 29.4 (25-34) pg MCHC 31.9 L (32-36) g/dL RDW Std Deviation 48.2 H (36.4-46.3) fL RDW Coeff of Zully 14.3 (11.5-14.5) % Plt Count 158 (130-400) K/uL MPV 12.1 H (7.4-10.4) fL Immature Gran % (Auto) 0.5 % Neut % (Auto) 69.9 % Lymph % (Auto) 14.5 % [place] % (Auto) 10.5 % Eos % (Auto) 3.8 % Baso % (Auto) 0.8 % Neut # (Auto) 4.58 (1.4-6.5) K/uL Lymph # (Auto) 0.95 L (1.2-3.4) K/uL [place] # (Auto) 0.69 H (0.11-0.59) K/uL Eos # (Auto) 0.25 (0-0.5) K/uL Baso # (Auto) 0.05 (0-0.2) K/uL Immature Gran # (Auto) 0.03 H (0.00-0.02) K/uL PT (9.0-12.0) Seconds INR (0.9-1.1) APTT (21.0-31.0) Seconds PTT Ratio Sodium 135 L (136-145) mmol/L Potassium 4.1 (3.5-5.1) mmol/L Chloride 99 (98-107) mmol/L Carbon Dioxide 27 (21-32) mmol/L Anion Gap 9 (3-11) BUN 17 (6-23) mg/dl Creatinine 1.40 (0.6-1.4) mg/dl Est Cr Clr Drug Dosing 42.0 ml/min Est GFR ( Amer) 53.5 ml/min Est GFR (Non-Af Amer) 46.1 ml/min BUN/Creatinine Ratio 12.1 (10-20) Glucose 285 H (70-99(Fasting)) mg/dl POC Glucose (70-99) mg/dl Estimat Average Glucose mg/dl Hemoglobin A1c (4.5-5.6) % Lactate (0.4-2.0) mmol/L Calcium 9.1 (8.5-10.1) mg/dl Phosphorus (2.5-4.9) mg/dl Magnesium 1.6 L (1.7-2.4) mg/dl Total Bilirubin 0.9 (0.2-1.0) mg/dl AST 49 H (13-39) U/L ALT 38 (7-52) U/L Alkaline Phosphatase 74 (34-104) U/L Troponin I 1.05 H* (0-0.04) ng/ml B-Natriuretic Peptide (0-100) pg/ml Total Protein 7.1 (6.0-8.3) gm/dl Albumin 3.4 (3.4-5.0) gm/dl Globulin 3.7 (2.5-4.0) gm/dl Albumin/Globulin Ratio 0.9 (0.9-2) Lipase (11-82) U/L TSH 2.523 (0.300-4.500) uIu/ml Stl C. diff Tox B Gene (Neg) Stl C.difficile Tox A&B (Negative) SARS-CoV-2, RNA, NAAT (NEGATIVE) Diagnostic Findings Repeat EKG this morning demonstrates atrial fibrillation with RVR, LBBB pattern Echo results pending at time of consult Chest xray on admission: IMPRESSION: 1. Cardiomegaly with pulmonary vascular congestion. 2. Mild bibasilar opacities suggestive of atelectasis versus pneumonitis. EKG on admission: NSR with LBBB Abd/Pelvic CT: IMPRESSION: 1. Hepatic steatosis with cirrhosis and trace abdominal pelvic ascites. 2. There is wall thickening throughout the majority of the colon and rectum with mild pericolonic stranding. Findings may be secondary to portal colopathy versus a nonspecific infectious or inflammatory colitis. 3. No bowel obstruction. 4. Trace pleural effusions with mild bibasilar atelectasis/scarring. 5. 5 mm calcification of the left renal pelvis without anuj hydronephrosis. 6. Additional findings as above. Medications Administered Current Inpatient Medications Acetaminophen (Acetaminophen 325 Mg Tab) 650 mg PO Q4H PRN PRN Reason: Pain or Fever Stop: 12/20/21 01:31 Amiodarone HCl (Amiodarone Iv Bolus & Drip) 1 ea IV NOW STA; Protocol Stop: 11/20/21 12:35 Aspirin (Aspirin 81 Mg Chew) 81 mg PO HS [facility] Stop: 12/20/21 20:59 Atorvastatin Calcium (Atorvastatin 10 Mg Tab) 10 mg PO QAM ARMINDA Stop: 12/20/21 08:59 Last Admin: 11/20/21 08:32 Dose: 10 mg Documented by: Clopidogrel Bisulfate (Clopidogrel Bisulfate 75 Mg Tab) 75 mg PO HS [facility] Stop: 12/20/21 20:59 Dextrose (Dextrose 50% 50 Ml Syringe) 25 - 50 ml IV UD PRN; Protocol PRN Reason: Hypoglycemia Protocol Stop: 12/20/21 01:31 Fluticasone/Vilanterol (Fluticasone/Vilanterol 200/25mcg 14 Puffs/Inhaler) 1 puffs INH DAILY ARMINDA Stop: 12/20/21 08:59 Last Admin: 11/20/21 08:34 Dose: 1 puffs Documented by: Gabapentin (Gabapentin 100 Mg Cap) 100 mg PO HS [facility] Stop: 12/20/21 20:59 Glucagon (Glucagon For Inj 1 Mg Vial) 1 mg SQ UD PRN; Protocol PRN Reason: Hypoglycemia Protocol Stop: 12/20/21 01:31 Glucose (Glucose 10 Tabs/Tube) 4 - 8 tabs PO UD PRN; Protocol PRN Reason: Hypoglycemia Protocol Stop: 12/20/21 01:31 Glucose (Glucose 40% Gel 15 Gm Tube) 15 - 30 gm PO UD PRN; Protocol PRN Reason: Hypoglycemia Protocol Stop: 12/20/21 01:31 Heparin Sodium (Porcine) (Heparin Sod 5,000 Unit/0.5 Ml Vial) 5,000 units SQ Q12 ARMINDA Stop: 12/20/21 08:59 Last Admin: 11/20/21 08:33 Dose: 5,000 units Documented by: Sodium Chloride (Nss 1000ml) 1,000 mls @ 80 mls/hr IV .[id number] [facility] Stop: 12/20/21 07:59 Last Admin: 11/20/21 08:33 Dose: 80 mls/hr Documented by: N/A (0.2 Micron Filter Set 17" W/Clave,Non-Dehp) 0 mls @ 0.333 mls/hr IV ONE ONE Stop: 11/20/21 12:35 Amiodarone HCl/Dextrose (Nexterone / D5w) 150 mg in 100 mls @ 600 mls/hr IV NOW STA Stop: 11/20/21 12:43 Amiodarone HCl/Dextrose (Nexterone / D5w) 360 mg in 200 mls @ 33.333 mls/hr IV ONE ONE Stop: 11/20/21 18:44 Amiodarone HCl/Dextrose (Nexterone / D5w) 360 mg in 200 mls @ 16.667 mls/hr IV .Q12H ARMINDA Stop: 12/20/21 18:44 Insulin Aspart (Insulin Aspart Per Unit) 0 units SC ACHS [facility] Stop: 12/20/21 02:29 Last Admin: 11/20/21 09:28 Dose: 4 units Documented by: Insulin Glargine (Insulin Glargine Solostar 100 Units/Ml 3 Ml Pen) 45 units SQ HS [facility] Stop: 12/20/21 02:14 Last Admin: 11/20/21 04:28 Dose: 45 units Documented by: Isosorbide Mononitrate (Isosorbide Denali Extended Rel 60 Mg Tabcr) 60 mg PO QAM [facility] Stop: 12/20/21 08:59 Last Admin: 11/20/21 08:33 Dose: 60 mg Documented by: Lactobacillus Acidophilus (Advanced Probiotic 1250 Mg Capsule) 2 cap PO QPM [facility] Stop: 12/20/21 20:59 Metoprolol Tartrate (Metoprolol Tartrate 25 Mg Tab) 25 mg PO BID [facility] Stop: 12/20/21 10:29 Last Admin: 11/20/21 12:06 Dose: 25 mg Documented by: Metoprolol Tartrate (Metoprolol Tartrate 1 Mg/Ml Vial) 5 mg IV Q5M PRN PRN Reason: Tachycardia Stop: 12/20/21 10:04 Miscellaneous (Carbohydrates For Hypoglycemia ) 15 - 30 gm PO UD PRN PRN Reason: Hypoglycemia Protocol Stop: 12/20/21 01:31 Miscellaneous (Remove Nitro-Dur Patch) 1 ea N/A DAILY@2100 [facility]DA Stop: 12/20/21 20:59 Miscellaneous (Remove Nitro-Dur Patch) 1 ea N/A DAILY@2100 [facility] Stop: 12/20/21 20:59 Miscellaneous (Stat Iv Infusion Titration Per Protocol) 1 ea N/A NOW STA Stop: 11/20/21 12:35 Nitroglycerin (Nitroglycerin 0.4 Mg/Hr Patch) 2 patch TD QAM [facility] Stop: 12/20/21 08:59 Last Admin: 11/20/21 08:33 Dose: 2 patch Documented by: Ondansetron HCl (Ondansetron Inj 2 Mg/Ml 2 Ml Vial) 4 mg IV Q6H PRN PRN Reason: Nausea Stop: 12/20/21 01:31 Raspberry (Raspberry Syrup 5 Ml Udp) 5 ml PO Q6H [facility]DA Stop: 11/30/21 05:59 Last Admin: 11/20/21 06:19 Dose: 5 ml Documented by: Tamsulosin HCl (Tamsulosin Hcl 0.4 Mg Cap) 0.4 mg PO HS [facility] Stop: 12/20/21 20:59 Vancomycin HCl (Vancomycin Hcl 250 Mg/5 Ml Soln) 250 mg PO Q6H [facility] Stop: 11/30/21 05:59 Last Admin: 11/20/21 06:19 Dose: 250 mg Documented by: Vitamin B Complex (Vitamin B Complex Tab) 1 tab PO DAILY [facility] Stop: 12/20/21 08:59 Last Admin: 11/20/21 08:32 Dose: 1 tab Documented by:
[2021-11-20] MEDS ORDERED: AMIODARONE / D5W 150 MG/100 ML BAG IV STA (12:43)
--- NOTE | 2021-11-20 12:43 | Cardiology Consultation ---
Date of Consultation November 20, 2021 Assessment & Plan (1) Paroxysmal atrial fibrillation: (2) Elevated troponin I level: Patient describes that he came to the ED because he could not pass water or have a bowel movement. New onset AF with RVR developed this am while already in the ED. 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 Transient chest pain noted, associated with rapid ventricular rate in range of 130 -160 bpm. After metoprolol 5 mg IV and metoprolol oral dose, AF at 107 bpm noted, and pt resting comfortably without recurrent symptoms. Mild troponin I elevation noted, likely due to myocardial strain in setting of acute non cardiac illness anf AF, RVR. Start amiodarone infusion for now for acute rate / rhythm control in setting of borderline hypotension. Trend mild LFT elevation. Holding off on systemic anticoagulation at present due to bowel complaints. Will reassess benefits / risks of anticoagulation as stay develops. Echo ordered, will review. Refer to separate consultation document for full consultatoin. History of Present Illness Attending Physician: Nato Garrett MD Allergies Allergy/AdvReac Type Severity Reaction Status Date / Time amoxicillin Allergy Severe swelling Verified 11/19/21 19:37 of lips and throat, shortness of breath adhesive Allergy Intermediate rash/skin Verified 11/19/21 19:37 irritation Sulfa (Sulfonamide Allergy Intermediate HIVES Verified 11/19/21 19:37 Antibiotics) Home Medications Medication Instructions Recorded Confirmed Type aspirin 81 mg chewable tablet 81 mg PO HS 06/18/19 11/19/21 History atorvastatin 10 mg tablet 10 mg PO [facility] 06/18/19 11/19/21 History clopidogrel 75 mg tablet 75 mg PO HS 06/18/19 11/19/21 History isosorbide mononitrate 60 mg 60 mg PO QAM 06/18/19 11/19/21 History tablet,extended release 24 hr metoprolol tartrate 100 mg tablet 150 mg PO BID tab 06/18/19 11/19/21 History nitroglycerin 0.8 mg/hr 1 patch TD QAM 06/18/19 11/19/21 History transdermal 24 hour patch (Nitro-Dur) pantoprazole 40 mg tablet,delayed 40 mg PO QA 06/18/19 11/19/21 History release gabapentin 100 mg capsule 100 mg PO HS #90 cap 02/07/21 11/19/21 Rx pen needle, diabetic 31 gauge x #50 ea 03/21/21 08/09/21 Rx 5/16" (BD Ultra-Fine Short Pen Needle) lancets 30 gauge (OneTouch Delica #300 ea 04/20/21 08/09/21 Rx Lancets) insulin glargine 100 unit/mL (3 45 unit SUBCUT HS 07/28/21 11/19/21 History mL) subcutaneous pen (Lantus Solostar U-100 Insulin) ranolazine 500 mg tablet,extended 500 mg PO BID 07/28/21 11/19/21 History release,12 hr Miscellaneous Pulmonary Supply #1 ea 08/10/21 Rx fluticasone furoate 200 1 inh INHALATION DAILY #28 ea 09/11/21 11/19/21 Rx mcg-vilanterol 25 mcg/dose inhalation powder (Breo Ellipta) blood sugar diagnostic #300 ea 10/15/21 Rx Lactobacillus acidophilus 1 tab PO QPM 11/19/21 11/19/21 History (Acidophilus) omega 3-rqe-esm-fish oil 1,000 mg 1 cap PO DAILY 11/19/21 11/19/21 History (120 mg-180 mg) capsule (Fish Oil) vitamin B complex 1 tab PO DAILY 11/19/21 11/19/21 History Patient History Medical History (Updated 11/20/21 @ 13:31 by Alexia Jauregui PA-C) Atelectasis of both lungs Cholelithiasis Chronic hypercapnic respiratory failure GERD (gastroesophageal reflux disease) Hypertension Pulmonary nodule 1 cm or greater in diameter Will need repeat CT chest in 09/2021. Unstable angina (01/12/14) Surgical History History of cholecystectomy History of esophagogastroduodenoscopy History of heart surgery History of hip replacement, total History of shoulder surgery Family History Father Myocardial infarction Heart disease Sister Breast cancer Mother Stroke Family/Other Arthritis Brother Coronary heart disease Denies family history of Ovarian cancer Prostate cancer Colorectal cancer Social History (Updated 08/09/21 @ 15:26 by Ayanna Peraza LPN) Smoking Status: Former smoker Tobacco Type: Cigarettes Age Started Using Tobacco: 11; Age Quit Using Tobacco: 48; packs per day: 0.75; Second Hand Exposure: No; Hx Alcohol Use: No Hx Substance Use: No Preferred Language: Kinyarwanda Communication Ability: Impaired Visual Impairment: Limited Hearing Ability: Hard of Hearing [employer]iting Required: No Beliefs That Will Affect Care: None marital status: Single Current Living Situation: Family Current Living Situation Comment: lives with oldest daughter 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 many Children do You have: 1 Feels Safe at Home: Yes Childhood Exposure to Second-Hand Smoke: Yes caffeine: Yes (coffee) during the past year weight has: remained stable Dental Care, Regularly: No Physical Activity Frequency: Does not Exercise Seatbelt Use: always Sunscreen Use: No Assistive Devices: Walker Results & Data ([facility]) Vital Signs (Past 12 Hours) Vital Signs Temp Pulse Pulse Resp BP BP BP 11/20/21 12:05 118 H 104/65 11/20/21 10:10 106 H 20 96/60 L 11/20/21 09:44 154 H 11/20/21 09:40 142 H 125/82 11/20/21 08:31 37 C 80 18 109/37 L 11/20/21 04:57 73 18 130/66 11/20/21 04:55 11/20/21 02:01 77 16 137/63 11/20/21 01:00 78 18 131/68 Pulse Ox Pulse Ox 11/20/21 12:05 11/20/21 10:10 96 11/20/21 09:44 11/20/21 09:40 11/20/21 08:31 92 11/20/21 04:57 94 11/20/21 04:55 94 11/20/21 02:01 93 11/20/21 01:00 94
[2021-11-20] MEDS ORDERED: AMIODARONE / D5W 360 MG/200 ML BAG IV ONE (13:00)
--- NOTE | 2021-11-20 13:36 | Hospitalist Progress Note ---
Date of Service November 20, 2021 Assessment & Plan (1) Elevated troponin I level: Plan: Elevated troponin appears to be heart rate related with supply demand mismatch. No chest pain. No evidence of acute coronary syndrome. (2) Clostridioides difficile infection: Plan: C. difficile gene positive, with C. difficile toxin negative Symptoms are consistent with active C. difficile infection Placed on vancomycin 250 mg p.o. 4 times daily, day 1 (3) CAD (coronary artery disease): Plan: Stable. Continue current medical management (4) Hypertension: Plan: Stable. Continue current medical management (5) Liver cirrhosis: Plan: Liver cirrhosis/hepatic steatosis/ LARA No abnormalities in liver enzymes (6) Type 2 diabetes mellitus with microalbuminuria, with long-term current use of insulin: Plan: Continue Lantus 45 units subcu at bedtime Place on Accu-Cheks before meals and at bedtime with NovoLog coverage per scale ADA diet (7) BPH w urinary obs/LUTS: Plan: CT with enlarged prostate, thickened bladder wall, and mildly distended bladder. Patient notes difficulty with urination Start tamsulosin 0.4 mg at bedtime, with first first dose this evening Await urinalysis and urine culture results (8) Hypomagnesemia: Plan: Magnesium 1.6 upon admission Give magnesium 2 g IV, and recheck in a.m. (9) Hepatic steatosis: Plan: See above (10) COPD (chronic obstructive pulmonary disease): Plan: Continue routine inhalers. Stable (11) Hypercholesteremia: Plan: Continue atorvastatin 10 mg daily Fasting lipid panel (12) GERD (gastroesophageal reflux disease): Plan: Continue pantoprazole Plan: Await [facility] cardiology evaluation. Occupational Therapy and physical therapy assessments requested. IV fluids. Eventual discharge to home Admission and Anticipated Discharge Date Admission Date: November 19, 2021 Subjective Alert and oriented. He feels weak. Troponin elevation appears to be due to tachycardia from atrial fibrillation and rapid ventricular rate. No evidence of acute coronary syndrome. He also appears to have C. difficile enteritis and is on oral vancomycin. He sees [facility] cardiology group who has been consulted. Recent cardiac echo done July 2021 reveals normal ejection fraction. CT scan of the abdomen/pelvis reveals evidence of enteritis. Mild hypomagnesemia will be corrected Review of Systems Review of Systems: Constitutional-no fever or chills ENT-no blurred vision, no double vision, no epistaxis, no sore throat Respiratory-no cough, no wheezing, no shortness of breath Cardiac-palpitations noted while in atrial fibrillation. No chest pain, no syncope GI-no nausea, vomiting, melena, hematochezia. Intermittent diarrhea -no urinary retention, no urinary incontinence, no dysuria, no hematuria Musculoskeletal-no joint pain, no muscle tenderness Skin-no bruising, no rashes, no pruritus Neuro-generalized weakness . No paresthesia, no weakness Psych-no depression, no anxiety Physical Exam Physical Exam: General-alert and oriented x3, no fevers, no chills HEENT-head atraumatic and normocephalic, TMs intact bilaterally, pupils equal and reactive to light, extraocular muscles intact Neck-no lymphadenopathy or thyromegaly, trachea midline Chest-clear to auscultation percussion. No rales wheezing or rhonchi Cardiac-regular rate and rhythm, normal S1 and S2, no murmurs Abdomen-normal bowel sounds, nontender, no hepatosplenomegaly Extremities-no cyanosis, clubbing, or edema Neuro-cranial nerves II through XII intact, motor and sensory function within normal limits, strength symmetrical , no focal deficits Psych-normal affect, normal mood Results & Data Results & Data ([facility]) Vital Signs (Past 12 Hours) Vital Signs Temp Pulse Pulse Resp BP BP Pulse Ox 11/20/21 12:05 118 H 104/65 11/20/21 10:10 106 H 20 96/60 L 96 11/20/21 09:44 154 H 11/20/21 09:40 142 H 125/82 11/20/21 08:31 37 C 80 18 109/37 L 92 11/20/21 04:57 73 18 130/66 94 11/20/21 04:55 11/20/21 02:01 77 16 137/63 93 Pulse Ox 11/20/21 12:05 11/20/21 10:10 11/20/21 09:44 11/20/21 09:40 11/20/21 08:31 11/20/21 04:57 11/20/21 04:55 94 11/20/21 02:01 Laboratory Results 11/20/21 04:18 11/20/21 04:18 PG Care Time/CCT Total # of Minutes Spent Total Time Spent with Patient: Total time spent is greater than 50% in coordination of care (as documented) at patient's floor/unit and/or counseling patient: Coding Level of Care Code 09875 Subseq Hosp Care Lvl 3 Diagnoses Elevated troponin I level R77.8 Clostridioides difficile infection A49.8 CAD (coronary artery disease) I25.10 Hypertension I10 Liver cirrhosis K74.60 Type 2 diabetes mellitus with microalbuminuria, with long-term current use of insulin E11.29; R80.9; Z79.4 BPH w urinary obs/LUTS N40.1; N13.8 Hypomagnesemia E83.42 Hepatic steatosis K76.0 COPD (chronic obstructive pulmonary disease) J44.9 Hypercholesteremia E78.00 GERD (gastroesophageal reflux disease) K21.9
[2021-11-20] MEDS: AMIODARONE / D5W 360 MG/200 ML BAG IV SCH ×2 (18:14→21:13)
[2021-11-20] MEDS: TAMSULOSIN HCL 0.4 MG CAP PO SCH (22:12)
[2021-11-20] MEDS: ADVANCED PROBIOTIC 1250 MG CAPSULE PO SCH (22:13)
[2021-11-20] MEDS: GABAPENTIN 100 MG CAP PO SCH (22:14)
[2021-11-20] MEDS: CLOPIDOGREL BISULFATE 75 MG TAB PO SCH (22:14)
[2021-11-20] MEDS: ASPIRIN 81 MG CHEW PO SCH (22:23)
[2021-11-21] MEDS: VANCOMYCIN HCL 250 MG/5 ML SOLN PO SCH (05:44)
[2021-11-21] MEDS: RASPBERRY SYRUP 5 ML UDP PO SCH ×4 (05:45→23:47)
--- NOTE | 2021-11-21 07:07 | Communication Note ---
Date of Service: November 21, 2021 EKG this am reveals SR. Will DC IV amiodarone.
[2021-11-21 08:05] LABS: Basophils # (auto) 0.04 K/uL (0-0.2); Basophils % (auto) 0.6 %; Eosinophils # (auto) 0.29 K/uL (0-0.5); Eosinophils % (auto) 4.1 %; Hematocrit (blood only) 38.9 % (42-52); Hemoglobin 12.5 g/dL (14.0-18.0); Immature Granulocytes # (auto) 0.05 K/uL (0.00-0.02); Immature Granulocytes % (auto) 0.7 %; Lymphocytes # (auto) 0.99 K/uL (1.2-3.4); Lymphocytes % (auto) 14.1 %; Mean Corpuscular Hemoglobin 29.8 pg (25-34); Mean Corpuscular Hgb Conc 32.1 g/dL (32-36); Mean Corpuscular Volume 92.8 fL (80-100); Mean Platelet Volume 12.1 fL (7.4-10.4); Monocytes % (auto) 7.1 %; Neutrophils # (auto) 5.16 K/uL (1.4-6.5); Neutrophils % (auto) 73.4 %; Platelet Count 169 K/uL (130-400); RDW Coefficient of Variation 14.4 % (11.5-14.5); RDW Standard Deviation 48.7 fL (36.4-46.3); Red Blood Count 4.19 M/uL (4.7-6.1); White Blood Count 7.03 K/uL (4.8-10.8)
[2021-11-21] MEDS: HEPARIN SOD 5,000 UNIT/0.5 ML VIAL SQ SCH ×2 (08:23→20:21)
[2021-11-21] MEDS: INSULIN ASPART PER UNIT SC SCH ×4 (08:23→20:19)
[2021-11-21] MEDS: METOPROLOL TARTRATE 25 MG TAB PO SCH (08:23)
[2021-11-21 08:28] LABS: BUN Creatinine Ratio 11.4 (10-20); Calcium 8.3 mg/dl (8.5-10.1); Creatinine Clr Calc Pharmacy 44.5 ml/min; Est GFR (African American) 57.4 ml/min; Est GFR (Non-African American) 49.5 ml/min; Magnesium 1.9 mg/dl (1.7-2.4); Potassium 3.8 mmol/L (3.5-5.1)
[2021-11-21] MEDS: VITAMIN B COMPLEX TAB PO SCH (08:37)
[2021-11-21] MEDS: ISOSORBIDE MONO EXTENDED REL 60 MG TABCR PO SCH (08:37)
[2021-11-21] MEDS: ATORVASTATIN 10 MG TAB PO SCH (08:37)
[2021-11-21] MEDS: NITROGLYCERIN 0.4 MG/HR PATCH TD SCH (08:37)
[2021-11-21 08:38] LABS: Troponin I 0.48 ng/ml (0-0.04)
[2021-11-21] MEDS: FLUTICASONE/VILANTEROL 200/25MCG 14 PUFFS/INHALER INH SCH (10:00)
[2021-11-21] MEDS: SODIUM CHLORIDE 0.9% 1000ML 1,000 ML IV SCH (10:28)
--- NOTE | 2021-11-21 11:05 | Cardiology Progress Note ---
Date of Service November 21, 2021 Assessment & Plan (1) Paroxysmal atrial fibrillation: (2) Elevated troponin I level: (3) Hypomagnesemia: (4) Clostridioides difficile infection: (5) CAD (coronary artery disease): (6) LBBB (left bundle branch block): Plan: Patient admitted for generalized weakness, abdominal pain, diagnosed with C.Diff enteritis. Also found to have paroxysmal Afib RVR PAF Initially treated with IV metoprolol, aiding rates. Amio bolus initiated and patient converted to NSR. Amiodarone was stopped due to history of liver cirrhosis. Not an ideal half-way agent to use. He had one recurrent episode of afib lasting about 1 hour last night Per review of outpatient medication list, it appears patient takes metoprolol tartrate 150 mg BID as an outpatient. Currently last night and this morning he only received metoprolol 25 mg BID due to concerns for nitro Given recurrent episode of PAF last night, will titrate at least to 50 mg BID for now and monitor HR and BP. Replace electrolytes. Elevated troponin likely due to acute illness and afib RVR. Echo without change. Given borderline low BP, will D/C his nitro patch for now and hopefully this will allow higher dose metoprolol. Given his acute enteritis, high risk for bleeding complications and will avoid IV heparin for now. Case discussed with Dr. Armstrong. will follow. Admission and Anticipated Discharge Date Admission Date: November 19, 2021 Supervising Physician Co-Signing Physician Notes Patient seen and examined, findings and plan discussed with Marina Jauregui PA-C agree with plan as documented. Subjective Patient resting in bed at time of evaluation, and with assistance of nurse, sitting up for the first time. He developed mild dizziness, which resolved while sitting on the edge of his bed. BP has been borderline low. no syncope. No recurrent chest pain. No dyspnea. Abdominal pain improving. Review of Systems Review of Systems: All systems reviewed & are unremarkable except as noted in HPI & below Physical Exam Constitutional: WD/WN, vitals as above + obese; no acute distress Eyes: PERRL, conjunctivae normal, anicteric sclerae ENMT: external ear and nose normal, oropharynx normal Neck: trachea midline, no thyromegaly Respiratory: normal respiratory effort; no labored breathing Cardiovascular: Rate/Rhythm: regular rate and regular rhythm Heart Sounds: no murmur Vessels: no JVD Extremities: no edema Gastrointestinal (Abdomen): Inspection/Auscultation: normal bowel sounds Percussion/Palpation: abdomen nontender Skin: no rashes, warm and dry Psychiatric: A+Ox3, euthymic affect Results & Data ([facility]) Vital Signs (Past 12 Hours) Vital Signs Temp Pulse Pulse Resp BP Pulse Ox 11/21/21 08:00 60 11/21/21 07:51 36.5 C 60 18 113/64 95 11/21/21 03:45 36.6 C 67 18 96/54 L 95 11/20/21 23:42 36.9 C 65 16 104/60 93 Laboratory Results 11/21/21 11/21/21 11/21/21 Range/Units 07:50 07:50 07:36 WBC 7.03 (4.8-10.8) K/uL RBC 4.19 L (4.7-6.1) M/uL Hgb 12.5 L (14.0-18.0) g/dL Hct 38.9 L (42-52) % MCV 92.8 (80-100) fL MCH 29.8 (25-34) pg MCHC 32.1 (32-36) g/dL RDW Std Deviation 48.7 H (36.4-46.3) fL RDW Coeff of Zully 14.4 (11.5-14.5) % Plt Count 169 (130-400) K/uL MPV 12.1 H (7.4-10.4) fL Immature Gran % (Auto) 0.7 % Neut % (Auto) 73.4 % Lymph % (Auto) 14.1 % Putnam % (Auto) 7.1 % Eos % (Auto) 4.1 % Baso % (Auto) 0.6 % Neut # (Auto) 5.16 (1.4-6.5) K/uL Lymph # (Auto) 0.99 L (1.2-3.4) K/uL Putnam # (Auto) 0.50 (0.11-0.59) K/uL Eos # (Auto) 0.29 (0-0.5) K/uL Baso # (Auto) 0.04 (0-0.2) K/uL Immature Gran # (Auto) 0.05 H (0.00-0.02) K/uL Sodium 136 (136-145) mmol/L Potassium 3.8 (3.5-5.1) mmol/L Chloride 103 (98-107) mmol/L Carbon Dioxide 30 (21-32) mmol/L Anion Gap 3 (3-11) BUN 15 (6-23) mg/dl Creatinine 1.32 (0.6-1.4) mg/dl Est Cr Clr Drug Dosing 44.5 ml/min Est GFR ( Amer) 57.4 ml/min Est GFR (Non-Af Amer) 49.5 ml/min BUN/Creatinine Ratio 11.4 (10-20) Glucose 190 H (70-99(Fasting)) mg/dl POC Glucose 181 H (70-99) mg/dl Calcium 8.3 L (8.5-10.1) mg/dl Magnesium 1.9 (1.7-2.4) mg/dl Troponin I 0.48 H* (0-0.04) ng/ml Stool Occult Bld Scrn (Negative) 11/20/21 11/20/21 11/20/21 Range/Units 22:15 21:03 20:14 WBC (4.8-10.8) K/uL RBC (4.7-6.1) M/uL Hgb (14.0-18.0) g/dL Hct (42-52) % MCV (80-100) fL MCH (25-34) pg MCHC (32-36) g/dL RDW Std Deviation (36.4-46.3) fL RDW Coeff of Zully (11.5-14.5) % Plt Count (130-400) K/uL MPV (7.4-10.4) fL Immature Gran % (Auto) % Neut % (Auto) % Lymph % (Auto) % Putnam % (Auto) % Eos % (Auto) % Baso % (Auto) % Neut # (Auto) (1.4-6.5) K/uL Lymph # (Auto) (1.2-3.4) K/uL Putnam # (Auto) (0.11-0.59) K/uL Eos # (Auto) (0-0.5) K/uL Baso # (Auto) (0-0.2) K/uL Immature Gran # (Auto) (0.00-0.02) K/uL Sodium (136-145) mmol/L Potassium (3.5-5.1) mmol/L Chloride (98-107) mmol/L Carbon Dioxide (21-32) mmol/L Anion Gap (3-11) BUN (6-23) mg/dl Creatinine (0.6-1.4) mg/dl Est Cr Clr Drug Dosing ml/min Est GFR ( Amer) ml/min Est GFR (Non-Af Amer) ml/min BUN/Creatinine Ratio (10-20) Glucose (70-99(Fasting)) mg/dl POC Glucose 216 H (70-99) mg/dl Calcium (8.5-10.1) mg/dl Magnesium (1.7-2.4) mg/dl Troponin I 0.73 H* (0-0.04) ng/ml Stool Occult Bld Scrn Negative (Negative) 11/20/21 11/20/21 11/20/21 Range/Units 16:28 12:32 12:29 WBC (4.8-10.8) K/uL RBC (4.7-6.1) M/uL Hgb (14.0-18.0) g/dL Hct (42-52) % MCV (80-100) fL MCH (25-34) pg MCHC (32-36) g/dL RDW Std Deviation (36.4-46.3) fL RDW Coeff of Zully (11.5-14.5) % Plt Count (130-400) K/uL MPV (7.4-10.4) fL Immature Gran % (Auto) % Neut % (Auto) % Lymph % (Auto) % Putnam % (Auto) % Eos % (Auto) % Baso % (Auto) % Neut # (Auto) (1.4-6.5) K/uL Lymph # (Auto) (1.2-3.4) K/uL Putnam # (Auto) (0.11-0.59) K/uL Eos # (Auto) (0-0.5) K/uL Baso # (Auto) (0-0.2) K/uL Immature Gran # (Auto) (0.00-0.02) K/uL Sodium (136-145) mmol/L Potassium (3.5-5.1) mmol/L Chloride (98-107) mmol/L Carbon Dioxide (21-32) mmol/L Anion Gap (3-11) BUN (6-23) mg/dl Creatinine (0.6-1.4) mg/dl Est Cr Clr Drug Dosing ml/min Est GFR ( Amer) ml/min Est GFR (Non-Af Amer) ml/min BUN/Creatinine Ratio (10-20) Glucose (70-99(Fasting)) mg/dl POC Glucose 223 H 194 H (70-99) mg/dl Calcium (8.5-10.1) mg/dl Magnesium (1.7-2.4) mg/dl Troponin I 0.76 H* (0-0.04) ng/ml Stool Occult Bld Scrn (Negative) Diagnostic Findings Telemetry reviewed - currently NSR with heart rates in the 50-70 bmp range. late last night he had recurrent afib lasting about 1 hour. Echo report reviewed dated 11/20/2021: Compared with prior study 08/01/2021, no significant change. LV is normal in size. LV systolic function is low normal. Ejection fraction 50 to 55%. Septal motion is consistent with conduction abnormality. Distal septal hypokinesis likely secondary to conduction abnormality present on prior studies as well. Mild concentric LVH. Grade 1 diastolic dysfunction. Borderline aortic root dilatation, ascending aorta diameter 3.9 cm. Mild MR. Medications Administered Current Inpatient Medications Acetaminophen (Acetaminophen 325 Mg Tab) 650 mg PO Q4H PRN PRN Reason: Pain or Fever Stop: 12/20/21 01:31 Aspirin (Aspirin 81 Mg Chew) 81 mg PO [facility] Stop: 12/20/21 20:59 Last Admin: 11/20/21 22:23 Dose: 81 mg Documented by: Atorvastatin Calcium (Atorvastatin 10 Mg Tab) 10 mg PO [facility] Stop: 12/20/21 08:59 Last Admin: 11/21/21 08:37 Dose: 10 mg Documented by: Clopidogrel Bisulfate (Clopidogrel Bisulfate 75 Mg Tab) 75 mg PO [facility] Stop: 12/20/21 20:59 Last Admin: 11/20/21 22:14 Dose: 75 mg Documented by: Dextrose (Dextrose 50% 50 Ml Syringe) 25 - 50 ml IV UD PRN; Protocol PRN Reason: Hypoglycemia Protocol Stop: 12/20/21 01:31 Fluticasone/Vilanterol (Fluticasone/Vilanterol 200/25mcg 14 Puffs/Inhaler) 1 puffs INH DAILY [facility] Stop: 12/20/21 08:59 Last Admin: 11/21/21 10:00 Dose: 1 puffs Documented by: Gabapentin (Gabapentin 100 Mg Cap) 100 mg PO HS [facility] Stop: 12/20/21 20:59 Last Admin: 11/20/21 22:14 Dose: 100 mg Documented by: Glucagon (Glucagon For Inj 1 Mg Vial) 1 mg SQ UD PRN; Protocol PRN Reason: Hypoglycemia Protocol Stop: 12/20/21 01:31 Glucose (Glucose 10 Tabs/Tube) 4 - 8 tabs PO UD PRN; Protocol PRN Reason: Hypoglycemia Protocol Stop: 12/20/21 01:31 Glucose (Glucose 40% Gel 15 Gm Tube) 15 - 30 gm PO UD PRN; Protocol PRN Reason: Hypoglycemia Protocol Stop: 12/20/21 01:31 Heparin Sodium (Porcine) (Heparin Sod 5,000 Unit/0.5 Ml Vial) 5,000 units SQ Q12 [facility] Stop: 12/20/21 08:59 Last Admin: 11/21/21 08:23 Dose: 5,000 units Documented by: Sodium Chloride (Nss 1000ml) 1,000 mls @ 50 mls/hr IV .Q20H [facility] Stop: 12/20/21 07:59 Last Admin: 11/21/21 10:28 Dose: 50 mls/hr Documented by: Insulin Aspart (Insulin Aspart Per Unit) 0 units SC ACHS [facility] Stop: 12/20/21 02:29 Last Admin: 11/21/21 08:23 Dose: 5 units Documented by: Insulin Glargine (Insulin Glargine Solostar 100 Units/Ml 3 Ml Pen) 45 units SQ HS [facility] Stop: 12/20/21 02:14 Last Admin: 11/20/21 22:15 Dose: 45 units Documented by: Isosorbide Mononitrate (Isosorbide Putnam Extended Rel 60 Mg Tabcr) 60 mg PO QAM [facility] Stop: 12/20/21 08:59 Last Admin: 11/21/21 08:37 Dose: 60 mg Documented by: Lactobacillus Acidophilus (Advanced Probiotic 1250 Mg Capsule) 2 cap PO QPM [facility] Stop: 12/20/21 20:59 Last Admin: 11/20/21 22:13 Dose: 2 cap Documented by: Metoprolol Tartrate (Metoprolol Tartrate 25 Mg Tab) 25 mg PO BID [facility] Stop: 12/20/21 10:29 Last Admin: 11/21/21 08:23 Dose: 25 mg Documented by: Metoprolol Tartrate (Metoprolol Tartrate 1 Mg/Ml Vial) 5 mg IV Q5M PRN PRN Reason: Tachycardia Stop: 12/20/21 10:04 Miscellaneous (Carbohydrates For Hypoglycemia ) 15 - 30 gm PO UD PRN PRN Reason: Hypoglycemia Protocol Stop: 12/20/21 01:31 Miscellaneous (Remove Nitro-Dur Patch) 1 ea N/A DAILY@2100 [facility] Stop: 12/20/21 20:59 Last Admin: 11/20/21 22:28 Dose: 1 ea Documented by: Miscellaneous (Remove Nitro-Dur Patch) 1 ea N/A DAILY@2100 [facility] Stop: 12/20/21 20:59 Last Admin: 11/20/21 22:29 Dose: Not Given Documented by: Nitroglycerin (Nitroglycerin 0.4 Mg/Hr Patch) 2 patch TD QAM [facility] Stop: 12/20/21 08:59 Last Admin: 11/21/21 08:37 Dose: 2 patch Documented by: Ondansetron HCl (Ondansetron Inj 2 Mg/Ml 2 Ml Vial) 4 mg IV Q6H PRN PRN Reason: Nausea Stop: 12/20/21 01:31 Raspberry (Raspberry Syrup 5 Ml Udp) 5 ml PO Q6H [facility] Stop: 11/30/21 05:59 Last Admin: 11/21/21 05:45 Dose: 5 ml Documented by: Tamsulosin HCl (Tamsulosin Hcl 0.4 Mg Cap) 0.4 mg PO HS [facility] Stop: 12/20/21 20:59 Last Admin: 11/20/21 22:12 Dose: 0.4 mg Documented by: Vancomycin HCl (Vancomycin Hcl 125 Mg/2.5ml Soln) 125 mg PO Q6 [facility] Stop: 12/01/21 11:59 Vitamin B Complex (Vitamin B Complex Tab) 1 tab PO DAILY [facility] Stop: 12/20/21 08:59 Last Admin: 11/21/21 08:37 Dose: 1 tab Documented by:
[2021-11-21] MEDS: VANCOMYCIN HCL 125 MG/2.5ML SOLN PO SCH ×3 (11:58→23:47)
[2021-11-21] MEDS ORDERED: VANCOMYCIN HCL 250 MG/5 ML SOLN PO SCH (12:00)
--- NOTE | 2021-11-21 13:20 | Hospitalist Progress Note ---
Date of Service November 21, 2021 Assessment & Plan (1) Elevated troponin I level: Plan: Elevated troponin appears to be heart rate related with supply demand mismatch. No chest pain. No evidence of acute coronary syndrome. (2) Clostridioides difficile infection: Plan: C. difficile gene positive, with C. difficile toxin negative Symptoms are consistent with active C. difficile infection Treating with vancomycin 4 times daily, day 2. Improving (3) CAD (coronary artery disease): Plan: Stable. Continue current medical management (4) Hypertension: Plan: Stable. Continue current medical management (5) Liver cirrhosis: Plan: Liver cirrhosis/hepatic steatosis/ LARA No abnormalities in liver enzymes (6) Type 2 diabetes mellitus with microalbuminuria, with long-term current use of insulin: Plan: Continue Lantus 45 units subcu at bedtime Place on Accu-Cheks before meals and at bedtime with NovoLog coverage per scale ADA diet (7) BPH w urinary obs/LUTS: Plan: CT with enlarged prostate, thickened bladder wall, and mildly distended bladder. Patient notes difficulty with urination Started tamsulosin 0.4 mg at bedtime (8) Hypomagnesemia: Plan: Corrected with parenteral replacement. (9) Hepatic steatosis: Plan: Aware. No intervention at this time (10) COPD (chronic obstructive pulmonary disease): Plan: Continue routine inhalers. Stable (11) Hypercholesteremia: Plan: Continue atorvastatin 10 mg daily (12) GERD (gastroesophageal reflux disease): Plan: Continue pantoprazole Plan: Occupational Therapy and physical therapy assessments requested. Eventual discharge to home Admission and Anticipated Discharge Date Admission Date: November 19, 2021 Subjective Alert and pleasant. No acute distress. Cardiology treated the patient with parenteral amiodarone and he has since converted to normal sinus rhythm. Troponin is trending down and appears to be heart rate related supplydemand mismatch without acute coronary syndrome. Oral vancomycin day 2 for C. difficile enteritis. IV fluids taper down. OT and PT assessments requested Review of Systems 2 Review of Systems: Constitutional-no fever or chills ENT-no blurred vision, no double vision, no epistaxis, no sore throat Respiratory-no cough, no wheezing, no shortness of breath Cardiac-no palpitations, no chest pain, no syncope GI-no nausea, vomiting, melena, hematochezia. Diarrhea is resolving -no urinary retention, no urinary incontinence, no dysuria, no hematuria Musculoskeletal-no joint pain, no muscle tenderness Skin-no bruising, no rashes, no pruritus Neuro-no isolated weakness, no paresthesia, no weakness Psych-no depression, no anxiety Physical Exam Physical Exam: General-alert and oriented x3, no fevers, no chills HEENT-head atraumatic and normocephalic, TMs intact bilaterally, pupils equal and reactive to light, extraocular muscles intact Neck-no lymphadenopathy or thyromegaly, trachea midline Chest-clear to auscultation percussion. No rales wheezing or rhonchi Cardiac-regular rate and rhythm, normal S1 and S2, no murmurs Abdomen-normal bowel sounds, nontender, no hepatosplenomegaly Extremities-no cyanosis, clubbing, or edema Neuro-cranial nerves II through XII intact, motor and sensory function within normal limits, strength symmetrical 5/5, no focal deficits Psych-normal affect, normal mood Results & Data Results & Data ([facility]) Vital Signs (Past 12 Hours) Vital Signs Temp Pulse Pulse Resp BP Pulse Ox 11/21/21 12:10 36.7 C 59 L 16 115/53 L 95 11/21/21 08:00 60 11/21/21 07:51 36.5 C 60 18 113/64 95 11/21/21 03:45 36.6 C 67 18 96/54 L 95 Laboratory Results 11/21/21 07:50 11/21/21 07:50 PG Care Time/CCT Total # of Minutes Spent Total Time Spent with Patient: Total time spent is greater than 50% in coordination of care (as documented) at patient's floor/unit and/or counseling patient: Coding Level of Care Code 80539 Subseq Hosp Care Lvl 3 Diagnoses Elevated troponin I level R77.8 Clostridioides difficile infection A49.8 CAD (coronary artery disease) I25.10 Hypertension I10 Liver cirrhosis K74.60 Type 2 diabetes mellitus with microalbuminuria, with long-term current use of insulin E11.29; R80.9; Z79.4 BPH w urinary obs/LUTS N40.1; N13.8 Hypomagnesemia E83.42 Hepatic steatosis K76.0 COPD (chronic obstructive pulmonary disease) J44.9 Hypercholesteremia E78.00 GERD (gastroesophageal reflux disease) K21.9
--- NOTE | 2021-11-21 14:14 | Electrocardiogram Report ---
Test Reason : Blood Pressure : / mmHG Vent. Rate : 062 BPM Atrial Rate : 062 BPM P-R Int : 176 ms QRS Dur : 144 ms QT Int : 478 ms P-R-T Axes : 055 011 182 degrees QTc Int : 485 ms Normal sinus rhythm Left bundle branch block Abnormal ECG When compared with ECG of 20-NOV-2021 09:39, Sinus rhythm has replaced Atrial fibrillation Vent. rate has decreased BY 84 BPM Confirmed by Herman Worthy ([id number]) on 11/21/2021 2:14:44 PM Referred By: REFERRED SELF Confirmed By:Herman Worthy
[2021-11-21] MEDS: CLOPIDOGREL BISULFATE 75 MG TAB PO SCH (20:15)
[2021-11-21] MEDS: ASPIRIN 81 MG CHEW PO SCH (20:15)
[2021-11-21] MEDS: GABAPENTIN 100 MG CAP PO SCH (20:16)
[2021-11-21] MEDS: ADVANCED PROBIOTIC 1250 MG CAPSULE PO SCH (20:16)
[2021-11-21] MEDS: INSULIN GLARGINE SOLOSTAR 100 UNITS/ML 3 ML PEN SQ SCH (20:20)
[2021-11-21] MEDS: METOPROLOL TARTRATE 50 MG TAB PO SCH (20:20)
[2021-11-21] MEDS: TAMSULOSIN HCL 0.4 MG CAP PO SCH (20:24)
[2021-11-21 20:52] LABS: Appearance Urine Clear (Clear); Bacteria Urine Automated Negative (Negative); Bilirubin Urine Negative (Negative); Blood Urine 1+ (Negative); Color Urine Dark Yellow; Glucose Urine UA 2+ (Negative); Ketones Urine Trace (Negative); Leukocyte Esterase Urine Negative (Negative); Nitrite Urine Negative (Negative); Protein Urine Negative (Negative); Specific Gravity Urine 1.025 (1.000-1.030); Urobilinogen Urine Negative (Negative)
[2021-11-22] MEDS: VANCOMYCIN HCL 125 MG/2.5ML SOLN PO SCH ×4 (06:06→23:07)
[2021-11-22] MEDS: RASPBERRY SYRUP 5 ML UDP PO SCH ×4 (06:06→23:07)
[2021-11-22] MEDS: SODIUM CHLORIDE 0.9% 1000ML 1,000 ML IV SCH (06:36)
[2021-11-22 07:00] LABS: Basophils # (auto) 0.03 K/uL (0-0.2); Basophils % (auto) 0.5 %; Eosinophils # (auto) 0.47 K/uL (0-0.5); Eosinophils % (auto) 7.6 %; Hematocrit (blood only) 34.8 % (42-52); Hemoglobin 11.1 g/dL (14.0-18.0); Immature Granulocytes # (auto) 0.04 K/uL (0.00-0.02); Immature Granulocytes % (auto) 0.6 %; Lymphocytes # (auto) 1.07 K/uL (1.2-3.4); Lymphocytes % (auto) 17.2 %; Mean Corpuscular Hemoglobin 29.7 pg (25-34); Mean Corpuscular Hgb Conc 31.9 g/dL (32-36); Mean Platelet Volume 12.5 fL (7.4-10.4); Monocytes % (auto) 8.1 %; Platelet Count 163 K/uL (130-400); RDW Coefficient of Variation 14.4 % (11.5-14.5); RDW Standard Deviation 48.8 fL (36.4-46.3); Red Blood Count 3.74 M/uL (4.7-6.1); White Blood Count 6.21 K/uL (4.8-10.8)
[2021-11-22 07:29] LABS: BUN Creatinine Ratio 9.3 (10-20); Creatinine Clr Calc Pharmacy 45.6 ml/min; Est GFR (Non-African American) 50.9 ml/min; Magnesium 1.8 mg/dl (1.7-2.4); Potassium 3.8 mmol/L (3.5-5.1)
[2021-11-22] MEDS: METOPROLOL TARTRATE 50 MG TAB PO SCH ×2 (08:04→20:30)
[2021-11-22] MEDS: ATORVASTATIN 10 MG TAB PO SCH (08:05)
[2021-11-22] MEDS: VITAMIN B COMPLEX TAB PO SCH (08:05)
[2021-11-22] MEDS: HEPARIN SOD 5,000 UNIT/0.5 ML VIAL SQ SCH ×2 (08:05→20:25)
[2021-11-22] MEDS: ISOSORBIDE MONO EXTENDED REL 60 MG TABCR PO SCH (08:05)
[2021-11-22] MEDS: FLUTICASONE/VILANTEROL 200/25MCG 14 PUFFS/INHALER INH SCH (08:05)
[2021-11-22] MEDS: INSULIN ASPART PER UNIT SC SCH ×4 (08:24→20:04)
--- NOTE | 2021-11-22 10:22 | Cardiology Progress Note ---
Date of Service November 22, 2021 Assessment & Plan (1) Paroxysmal atrial fibrillation: (2) Elevated troponin I level: (3) Hypomagnesemia: (4) Clostridioides difficile infection: (5) CAD (coronary artery disease): (6) LBBB (left bundle branch block): Plan: Patient admitted for generalized weakness, abdominal pain, diagnosed with C.Diff Colitis. Also found to have paroxysmal Afib RVR PAF Initially treated with IV metoprolol, aiding rates. Amio bolus initiated and patient converted to NSR. Amiodarone was stopped due to history of liver cirrhosis. Not an ideal long-term agent to use. Per review of outpatient medication list, it appears patient takes metoprolol tartrate 150 mg BID as an outpatient. This was reduced on admission to 25 mg twice daily due to hypotension. Nitro patch placed on hold due to hypotension to allow higher dose beta-cesar. Dose increased to 50 mg twice daily and no recurrent atrial fibrillation noted. Elevated troponin likely due to acute illness and afib RVR. Echo without change. Given his acute enteritis, high risk for bleeding complications and will avoid IV heparin/Oral anticoagulation for now. Continue treatment for C. difficile colitis Per hospitalist. DVT prophylaxis with SQ hep Case discussed with Dr. Armstrong. will follow. Admission and Anticipated Discharge Date Admission Date: November 19, 2021 Supervising Physician Co-Signing Physician Notes Patient seen and examined. Agree with findings and plan as documented by Alexia Jauregui PA-C. Subjective Patient resting in bed comfortably. He denies acute complaints. Abdominal pain and diarrhea improved. No chest pain or unusual shortness of breath. Respiratory status at baseline. He chronically wears supplemental O2 at 3 L. No orthopnea, PND, lower extremity edema. No sense of palpitations or tachypalpitations. No dizziness, lightheadedness, syncope or near syncope. Review of Systems Review of Systems: All systems reviewed & are unremarkable except as noted in HPI & below Physical Exam Constitutional: WD/WN, vitals as above + obese; no acute distress Eyes: PERRL, conjunctivae normal, anicteric sclerae ENMT: external ear and nose normal, oropharynx normal Neck: trachea midline, no thyromegaly Respiratory: normal respiratory effort; no labored breathing Cardiovascular: Rate/Rhythm: regular rate and regular rhythm Heart Sounds: no murmur Vessels: no JVD Extremities: no edema Gastrointestinal (Abdomen): Inspection/Auscultation: normal bowel sounds Percussion/Palpation: abdomen nontender Skin: no rashes, warm and dry Psychiatric: A+Ox3, euthymic affect Results & Data ([facility]) Vital Signs (Past 12 Hours) Vital Signs Temp Pulse Pulse Resp BP BP Pulse Ox 11/22/21 08:00 63 70 11/22/21 07:48 37.0 C 55 L 19 117/61 91 11/22/21 04:00 60 20 94/45 L 97 11/21/21 23:50 36.8 C 61 20 120/62 94 Laboratory Results 11/22/21 11/22/21 11/22/21 Range/Units 07:23 06:29 06:29 WBC 6.21 (4.8-10.8) K/uL RBC 3.74 L (4.7-6.1) M/uL Hgb 11.1 L (14.0-18.0) g/dL Hct 34.8 L (42-52) % MCV 93.0 (80-100) fL MCH 29.7 (25-34) pg MCHC 31.9 L (32-36) g/dL RDW Std Deviation 48.8 H (36.4-46.3) fL RDW Coeff of Zully 14.4 (11.5-14.5) % Plt Count 163 (130-400) K/uL MPV 12.5 H (7.4-10.4) fL Immature Gran % (Auto) 0.6 % Neut % (Auto) 66.0 % Lymph % (Auto) 17.2 % [place] % (Auto) 8.1 % Eos % (Auto) 7.6 % Baso % (Auto) 0.5 % Neut # (Auto) 4.10 (1.4-6.5) K/uL Lymph # (Auto) 1.07 L (1.2-3.4) K/uL [place] # (Auto) 0.50 (0.11-0.59) K/uL Eos # (Auto) 0.47 (0-0.5) K/uL Baso # (Auto) 0.03 (0-0.2) K/uL Immature Gran # (Auto) 0.04 H (0.00-0.02) K/uL Sodium 138 (136-145) mmol/L Potassium 3.8 (3.5-5.1) mmol/L Chloride 107 (98-107) mmol/L Carbon Dioxide 28 (21-32) mmol/L Anion Gap 3 (3-11) BUN 12 (6-23) mg/dl Creatinine 1.29 (0.6-1.4) mg/dl Est Cr Clr Drug Dosing 45.6 ml/min Est GFR ( Amer) 59.0 ml/min Est GFR (Non-Af Amer) 50.9 ml/min BUN/Creatinine Ratio 9.3 L (10-20) Glucose 144 H (70-99(Fasting)) mg/dl POC Glucose 135 H (70-99) mg/dl Calcium 8.0 L (8.5-10.1) mg/dl Magnesium 1.8 (1.7-2.4) mg/dl Troponin I (0-0.04) ng/ml Urine Color Urine Appearance (Clear) Urine pH (4.5-7.5) Ur Specific [place] (1.000-1.030) Urine Protein (Negative) Urine Glucose (UA) (Negative) Urine Ketones (Negative) Urine Blood (Negative) Urine Nitrite (Negative) Urine Bilirubin (Negative) Urine Urobilinogen (Negative) Ur Leukocyte Esterase (Negative) Urine WBC (Auto) (0-5) /hpf Urine RBC (Auto) (0-4) /hpf U Hyaline Cast (Auto) (0-5) /lpf U Epithel Cells (Auto) (0-5) /lpf Urine Bacteria (Auto) (Negative) 11/21/21 11/21/21 11/21/21 Range/Units 20:33 19:54 16:22 WBC (4.8-10.8) K/uL RBC (4.7-6.1) M/uL Hgb (14.0-18.0) g/dL Hct (42-52) % MCV (80-100) fL MCH (25-34) pg MCHC (32-36) g/dL RDW Std Deviation (36.4-46.3) fL RDW Coeff of Zully (11.5-14.5) % Plt Count (130-400) K/uL MPV (7.4-10.4) fL Immature Gran % (Auto) % Neut % (Auto) % Lymph % (Auto) % [place] % (Auto) % Eos % (Auto) % Baso % (Auto) % Neut # (Auto) (1.4-6.5) K/uL Lymph # (Auto) (1.2-3.4) K/uL [place] # (Auto) (0.11-0.59) K/uL Eos # (Auto) (0-0.5) K/uL Baso # (Auto) (0-0.2) K/uL Immature Gran # (Auto) (0.00-0.02) K/uL Sodium (136-145) mmol/L Potassium (3.5-5.1) mmol/L Chloride (98-107) mmol/L Carbon Dioxide (21-32) mmol/L Anion Gap (3-11) BUN (6-23) mg/dl Creatinine (0.6-1.4) mg/dl Est Cr Clr Drug Dosing ml/min Est GFR ( Amer) ml/min Est GFR (Non-Af Amer) ml/min BUN/Creatinine Ratio (10-20) Glucose (70-99(Fasting)) mg/dl POC Glucose 196 H 178 H (70-99) mg/dl Calcium (8.5-10.1) mg/dl Magnesium (1.7-2.4) mg/dl Troponin I (0-0.04) ng/ml Urine Color Dark Yellow Urine Appearance Clear (Clear) Urine pH 5.0 (4.5-7.5) Ur Specific [place] 1.025 (1.000-1.030) Urine Protein Negative (Negative) Urine Glucose (UA) 2+ H (Negative) Urine Ketones Trace H (Negative) Urine Blood 1+ H (Negative) Urine Nitrite Negative (Negative) Urine Bilirubin Negative (Negative) Urine Urobilinogen Negative (Negative) Ur Leukocyte Esterase Negative (Negative) Urine WBC (Auto) 1-5 (0-5) /hpf Urine RBC (Auto) 5-10 H (0-4) /hpf U Hyaline Cast (Auto) 1-5 (0-5) /lpf U Epithel Cells (Auto) 5-10 H (0-5) /lpf Urine Bacteria (Auto) Negative (Negative) 11/21/21 11/21/21 Range/Units 12:30 11:25 WBC (4.8-10.8) K/uL RBC (4.7-6.1) M/uL Hgb (14.0-18.0) g/dL Hct (42-52) % MCV (80-100) fL MCH (25-34) pg MCHC (32-36) g/dL RDW Std Deviation (36.4-46.3) fL RDW Coeff of Zully (11.5-14.5) % Plt Count (130-400) K/uL MPV (7.4-10.4) fL Immature Gran % (Auto) % Neut % (Auto) % Lymph % (Auto) % [place] % (Auto) % Eos % (Auto) % Baso % (Auto) % Neut # (Auto) (1.4-6.5) K/uL Lymph # (Auto) (1.2-3.4) K/uL [place] # (Auto) (0.11-0.59) K/uL Eos # (Auto) (0-0.5) K/uL Baso # (Auto) (0-0.2) K/uL Immature Gran # (Auto) (0.00-0.02) K/uL Sodium (136-145) mmol/L Potassium (3.5-5.1) mmol/L Chloride (98-107) mmol/L Carbon Dioxide (21-32) mmol/L Anion Gap (3-11) BUN (6-23) mg/dl Creatinine (0.6-1.4) mg/dl Est Cr Clr Drug Dosing ml/min Est GFR ( Amer) ml/min Est GFR (Non-Af Amer) ml/min BUN/Creatinine Ratio (10-20) Glucose (70-99(Fasting)) mg/dl POC Glucose 303 H* (70-99) mg/dl Calcium (8.5-10.1) mg/dl Magnesium (1.7-2.4) mg/dl Troponin I 0.38 H* (0-0.04) ng/ml Urine Color Urine Appearance (Clear) Urine pH (4.5-7.5) Ur Specific [place] (1.000-1.030) Urine Protein (Negative) Urine Glucose (UA) (Negative) Urine Ketones (Negative) Urine Blood (Negative) Urine Nitrite (Negative) Urine Bilirubin (Negative) Urine Urobilinogen (Negative) Ur Leukocyte Esterase (Negative) Urine WBC (Auto) (0-5) /hpf Urine RBC (Auto) (0-4) /hpf U Hyaline Cast (Auto) (0-5) /lpf U Epithel Cells (Auto) (0-5) /lpf Urine Bacteria (Auto) (Negative) Diagnostic Findings Telemetry reviewed demonstrating normal sinus rhythm In the 60s. No recurrent atrial fibrillation over the last 24 hours. Medications Administered Current Inpatient Medications Acetaminophen (Acetaminophen 325 Mg Tab) 650 mg PO Q4H PRN PRN Reason: Pain or Fever Stop: 12/20/21 01:31 Aspirin (Aspirin 81 Mg Chew) 81 mg PO [facility] Stop: 12/20/21 20:59 Last Admin: 11/21/21 20:15 Dose: 81 mg Documented by: Atorvastatin Calcium (Atorvastatin 10 Mg Tab) [address] [facility] Stop: 12/20/21 08:59 Last Admin: 11/22/21 08:05 Dose: 10 mg Documented by: Clopidogrel Bisulfate (Clopidogrel Bisulfate 75 Mg Tab) 75 mg PO [facility] Stop: 12/20/21 20:59 Last Admin: 11/21/21 20:15 Dose: 75 mg Documented by: Dextrose (Dextrose 50% 50 Ml Syringe) 25 - 50 ml IV UD PRN; Protocol PRN Reason: Hypoglycemia Protocol Stop: 12/20/21 01:31 Fluticasone/Vilanterol (Fluticasone/Vilanterol 200/25mcg 14 Puffs/Inhaler) 1 puffs INH DAILY [facility] Stop: 12/20/21 08:59 Last Admin: 11/22/21 08:05 Dose: 1 puffs Documented by: Gabapentin (Gabapentin 100 Mg Cap) 100 mg PO [facility] Stop: 12/20/21 20:59 Last Admin: 11/21/21 20:16 Dose: 100 mg Documented by: Glucagon (Glucagon For Inj 1 Mg Vial) 1 mg SQ UD PRN; Protocol PRN Reason: Hypoglycemia Protocol Stop: 12/20/21 01:31 Glucose (Glucose 10 Tabs/Tube) 4 - 8 tabs PO UD PRN; Protocol PRN Reason: Hypoglycemia Protocol Stop: 12/20/21 01:31 Glucose (Glucose 40% Gel 15 Gm Tube) 15 - 30 gm PO UD PRN; Protocol PRN Reason: Hypoglycemia Protocol Stop: 12/20/21 01:31 Heparin Sodium (Porcine) (Heparin Sod 5,000 Unit/0.5 Ml Vial) 5,000 units SQ Q12 [facility] Stop: 12/20/21 08:59 Last Admin: 11/22/21 08:05 Dose: 5,000 units Documented by: Sodium Chloride (Nss 1000ml) 1,000 mls @ 50 mls/hr IV .Q20H [facility] Stop: 12/20/21 07:59 Last Admin: 11/22/21 06:36 Dose: 50 mls/hr Documented by: Insulin Aspart (Insulin Aspart Per Unit) 0 units SC ACHS [facility] Stop: 12/20/21 02:29 Last Admin: 11/22/21 08:24 Dose: 4 units Documented by: Insulin Glargine (Insulin Glargine Solostar 100 Units/Ml 3 Ml Pen) 45 units SQ HS [facility] Stop: 12/20/21 02:14 Last Admin: 11/21/21 20:20 Dose: 45 units Documented by: Isosorbide Mononitrate (Isosorbide [place] Extended Rel 60 Mg Tabcr) 60 mg PO QAM [facility] Stop: 12/20/21 08:59 Last Admin: 11/22/21 08:05 Dose: 60 mg Documented by: Lactobacillus Acidophilus (Advanced Probiotic 1250 Mg Capsule) 2 cap PO QPM [facility] Stop: 12/20/21 20:59 Last Admin: 11/21/21 20:16 Dose: 2 cap Documented by: Metoprolol Tartrate (Metoprolol Tartrate 1 Mg/Ml Vial) 5 mg IV Q5M PRN PRN Reason: Tachycardia Stop: 12/20/21 10:04 Metoprolol Tartrate (Metoprolol Tartrate 50 Mg Tab) 50 mg PO BID [facility] Stop: 12/21/21 20:59 Last Admin: 11/22/21 08:04 Dose: 50 mg Documented by: Miscellaneous (Carbohydrates For Hypoglycemia ) 15 - 30 gm PO UD PRN PRN Reason: Hypoglycemia Protocol Stop: 12/20/21 01:31 Miscellaneous (Remove Nitro-Dur Patch) 1 ea N/A DAILY@2100 [facility] Stop: 12/20/21 20:59 Last Admin: 11/21/21 20:24 Dose: Not Given Documented by: Miscellaneous (Remove Nitro-Dur Patch) 1 ea N/A DAILY@2100 [facility] Stop: 12/20/21 20:59 Last Admin: 11/21/21 20:24 Dose: Not Given Documented by: Nitroglycerin (Nitroglycerin 0.4 Mg/Hr Patch) 2 patch TD QAM [facility] Stop: 12/20/21 08:59 Last Admin: 11/21/21 08:37 Dose: 2 patch Documented by: Ondansetron HCl (Ondansetron Inj 2 Mg/Ml 2 Ml Vial) 4 mg IV Q6H PRN PRN Reason: Nausea Stop: 12/20/21 01:31 Raspberry (Raspberry Syrup 5 Ml Udp) 5 ml PO Q6H [facility] Stop: 11/30/21 05:59 Last Admin: 11/22/21 06:06 Dose: 5 ml Documented by: Tamsulosin HCl (Tamsulosin Hcl 0.4 Mg Cap) 0.4 mg PO HS [facility] Stop: 12/20/21 20:59 Last Admin: 11/21/21 20:24 Dose: 0.4 mg Documented by: Vancomycin HCl (Vancomycin Hcl 125 Mg/2.5ml Soln) 125 mg PO Q6 [facility] Stop: 12/01/21 11:59 Last Admin: 11/22/21 06:06 Dose: 125 mg Documented by: Vitamin B Complex (Vitamin B Complex Tab) 1 tab PO DAILY [facility] Stop: 12/20/21 08:59 Last Admin: 11/22/21 08:05 Dose: 1 tab Documented by:
--- NOTE | 2021-11-22 17:58 | Hospitalist Progress Note ---
Date of Service November 22, 2021 Assessment & Plan (1) Elevated troponin I level: Plan: Mild troponin leak peaked 0.48, downtrended No chest pain, chest pressure Suspected demand ischemia in the setting of C. difficile infection EKG on admission was A. fib which converted 2/15 TTE EF 50 to 55%, abnormal septal motion consistent with LBBB Cardiology following.Metoprolol increased to 50 mg twice daily, patient on metoprolol 50 mg twice daily as outpatientNitro discontinued due to low blood pressurePatient with high risk for bleeding complications, anticoagulation for A. fib deferred. (2) Clostridioides difficile infection: Plan: -C. difficile gene positive, with C. difficile toxin negative -Symptoms are consistent with active C. difficile infection -Treating with vancomycin 4 times daily, clinically improving Recommend 10-day course of antibiotics for CDI, no leukocytosis/no creatinine elevation/not fulminant disease (3) Paroxysmal atrial fibrillation: Plan: - See above, anticoagulation deferred due to bleeding risk (4) CAD (coronary artery disease): Plan: Stable. Continue current medical management (5) Hypertension: Plan: Stable. Continue current medical management (6) Liver cirrhosis: Plan: Liver cirrhosis/hepatic steatosis/ LARA No abnormalities in liver enzymes (7) Type 2 diabetes mellitus with microalbuminuria, with long-term current use of insulin: Plan: Continue Lantus 45 units subcu at bedtime Glucose checks AC/at bedtime SSI ADA diet (8) BPH w urinary obs/LUTS: Plan: CT with enlarged prostate, thickened bladder wall, and mildly distended bladder. Patient notes difficulty with urination Started tamsulosin 0.4 mg at bedtime (9) Hypomagnesemia: Plan: Corrected (10) Hepatic steatosis: Plan: Aware. No intervention at this time (11) COPD (chronic obstructive pulmonary disease): Plan: Continue routine inhalers. Stable. Home 3 L O2. Goal to 3 we want to protect you regardless of what the reasonable (12) Hypercholesteremia: Plan: Continue atorvastatin 10 mg daily (13) GERD (gastroesophageal reflux disease): Plan: Continue pantoprazole Plan: PT/OT recommending rehab versus SNF. Patient clinically improving, placement pending Admission and Anticipated Discharge Date Admission Date: November 19, 2021 Subjective Seen at bedside. He reports he feels tired, would like to get more rest. L pain has improved, 1 bowel movement today diarrhea improving. No blood denies chest pain, chest pressure, shortness of breath today. Has not yet worked with PT. No fever/chills/sweats/lightheadedness/dizziness. Denies cramping. Goes back to sleep following discussion. Review of Systems Review of Systems: All systems reviewed & are unremarkable except as noted in Subjective Physical Exam Physical Exam: General: A&Ox3. NAD. Cooperative. HEENT: Atraumatic, normocephalic. Pulm: CTAB A&P. -wheezes, -rales, -rhonchi. Symmetrical chest rise. No increase in work of breathing. No respiratory distress. Cardiac: RRR, -mrg. Radial pulses intact and symmetrical. Abdominal: Nontender, nondistended, soft. BS present. Results & Data Results & [facility]) Vital Signs (Past 12 Hours) Vital Signs Temp Pulse Pulse Resp BP BP Pulse Ox 11/22/21 15:32 36.5 C 58 L 19 106/40 L 95 11/22/21 15:00 60 11/22/21 11:22 36.4 C L 54 L 18 100/51 L 96 11/22/21 08:00 63 70 11/22/21 07:48 37.0 C 55 L 19 117/61 91 PG Care Time/CCT Total # of Minutes Spent Total Time Spent with Patient: Total time spent is greater than 50% in coordination of care (as documented) at patient's floor/unit and/or counseling patient: Coding Level of Care Code 80237 Subseq Hosp Care Lvl 2 Diagnoses Elevated troponin I level R77.8 Clostridioides difficile infection A49.8 CAD (coronary artery disease) I25.10 Hypertension I10 Liver cirrhosis K74.60 Type 2 diabetes mellitus with microalbuminuria, with long-term current use of insulin E11.29; R80.9; Z79.4 BPH w urinary obs/LUTS N40.1; N13.8 Hypomagnesemia E83.42 Hepatic steatosis K76.0 COPD (chronic obstructive pulmonary disease) J44.9 Hypercholesteremia E78.00 GERD (gastroesophageal reflux disease) K21.9 Paroxysmal atrial fibrillation I48.0
[2021-11-22] MEDS: CLOPIDOGREL BISULFATE 75 MG TAB PO SCH (20:28)
[2021-11-22] MEDS: ASPIRIN 81 MG CHEW PO SCH (20:28)
[2021-11-22] MEDS: GABAPENTIN 100 MG CAP PO SCH (20:29)
[2021-11-22] MEDS: ADVANCED PROBIOTIC 1250 MG CAPSULE PO SCH (20:29)
[2021-11-22] MEDS: TAMSULOSIN HCL 0.4 MG CAP PO SCH (20:30)
[2021-11-22] MEDS: INSULIN GLARGINE SOLOSTAR 100 UNITS/ML 3 ML PEN SQ SCH (20:33)
[2021-11-23] MEDS: SODIUM CHLORIDE 0.9% 1000ML 1,000 ML IV SCH ×2 (02:18→21:06)
[2021-11-23] MEDS: RASPBERRY SYRUP 5 ML UDP PO SCH ×3 (05:16→17:21)
[2021-11-23] MEDS: VANCOMYCIN HCL 125 MG/2.5ML SOLN PO SCH ×3 (05:16→17:30)
[2021-11-23 06:54] LABS: BUN Creatinine Ratio 11.6 (10-20); Calcium 8.2 mg/dl (8.5-10.1); Creatinine Clr Calc Pharmacy 52.5 ml/min; Est GFR (Non-African American) 60.4 ml/min; Potassium 3.9 mmol/L (3.5-5.1)
[2021-11-23] MEDS: INSULIN ASPART PER UNIT SC SCH ×4 (08:21→21:16)
[2021-11-23] MEDS: FLUTICASONE/VILANTEROL 200/25MCG 14 PUFFS/INHALER INH SCH (08:27)
[2021-11-23] MEDS: HEPARIN SOD 5,000 UNIT/0.5 ML VIAL SQ SCH ×2 (08:27→21:09)
[2021-11-23] MEDS: ATORVASTATIN 10 MG TAB PO SCH (08:27)
[2021-11-23] MEDS: METOPROLOL TARTRATE 50 MG TAB PO SCH ×2 (08:28→21:07)
[2021-11-23] MEDS: VITAMIN B COMPLEX TAB PO SCH (08:28)
[2021-11-23] MEDS: ISOSORBIDE MONO EXTENDED REL 60 MG TABCR PO SCH (08:28)
--- NOTE | 2021-11-23 10:30 | Cardiology Progress Note ---
Date of Service November 23, 2021 Assessment & Plan (1) Paroxysmal atrial fibrillation: (2) Elevated troponin I level: (3) Hypomagnesemia: (4) Clostridioides difficile infection: (5) CAD (coronary artery disease): (6) LBBB (left bundle branch block): Plan: Patient admitted for generalized weakness, abdominal pain, diagnosed with C.Diff Colitis. Also found to have paroxysmal Afib RVR on admission. PAF Initially treated with IV metoprolol, aiding rates. Amio bolus initiated and patient converted to NSR. Amiodarone was stopped due to history of liver cirrhosis. Not an ideal intermediate manager agent to use. Per review of outpatient medication list, it appears patient takes metoprolol tartrate 150 mg BID as an outpatient. He is unsure of this dose and medication compliance is questionable. This was reduced on admission to 25 mg twice daily due to hypotension. Titrated metoprolol to 50 mg BID to aid with afib episodes and he is tolerating this dose. Hesitant to increase further due to bradycardia. Nitro patch placed on hold due to hypotension to allow higher dose beta-cesar. Elevated troponin likely due to acute illness and afib RVR. Echo without change. Given his acute colitis, he is high risk for bleeding complications and will avoid IV heparin/Oral anticoagulation for now. Continue dual antiplatelet therapy. Could consider outpatient monitor to re-evaluate afib burden once C.Diff has fully resolved. Continue treatment for C. difficile colitis Per hospitalist. DVT prophylaxis with SQ hep Per nursing staff, patient is likely to be transitioned to SNF on discharge due to failure to thrive/care for himself at home. Stable for discharge from cardiac standpoint when bed available. Case discussed with Dr. Armstrong. Admission and Anticipated Discharge Date Admission Date: November 19, 2021 Supervising Physician Co-Signing Physician Notes Supervising Physician Attestation: I have personally performed a history and physical examination on the patient. I agree with the physician speech language pathology assistant's findings and plan as documented with the following additions. Subjective: Patient resting comfortably. Denies chest pain, denies shortness of breath or palpitations. Abdominal discomfort which was presenting complaint trending toward improvement. Exam: Telemetry reveals sinus bradycardia in the 50s Data: Potassium 3.9 Assessment and Plan: Chronic exertional angina Newly recognized paroxysmal atrial fibrillation in the setting of symptomatic colitis -Continue metoprolol tartrate 50 mg twice daily -Continue aspirin, clopidogrel -Outpatient nitroglycerin patch remains on hold, and perhaps will be need to be discontinued at discharge. Gurdeep Armstrong, DO Subjective Patient resting in bed comfortably. Abdominal pain improved. Denies symptoms of chest pain, dyspnea, palpitations or tachypalpitations. No orthopnea, PND or edema. Review of Systems Review of Systems: All systems reviewed & are unremarkable except as noted in HPI & below Physical Exam Constitutional: WD/WN, vitals as above + obese; no acute distress Eyes: PERRL, conjunctivae normal, anicteric sclerae ENMT: external ear and nose normal, oropharynx normal Neck: trachea midline, no thyromegaly Respiratory: normal respiratory effort; no labored breathing Cardiovascular: Rate/Rhythm: regular rate and regular rhythm Heart Sounds: no murmur Vessels: no JVD Extremities: no edema Gastrointestinal (Abdomen): Inspection/Auscultation: normal bowel sounds Percussion/Palpation: abdomen nontender Skin: no rashes, warm and dry Psychiatric: A+Ox3, euthymic affect Results & Data ([facility]) Vital Signs (Past 12 Hours) Vital Signs Temp Pulse Pulse Resp BP Pulse Ox 11/23/21 07:38 36.6 C 62 20 125/66 95 11/23/21 03:17 36.6 C 62 16 125/64 93 11/22/21 23:11 61 11/22/21 22:50 37.0 C 60 19 148/71 H 94 Laboratory Results 11/23/21 11/23/21 11/22/21 Range/Units 07:26 05:49 20:01 Sodium 139 (136-145) mmol/L Potassium 3.9 (3.5-5.1) mmol/L Chloride 109 H (98-107) mmol/L Carbon Dioxide 27 (21-32) mmol/L Anion Gap 3 (3-11) BUN 13 (6-23) mg/dl Creatinine 1.12 (0.6-1.4) mg/dl Est Cr Clr Drug Dosing 52.5 ml/min Est GFR ( Amer) 70.0 ml/min Est GFR (Non-Af Amer) 60.4 ml/min BUN/Creatinine Ratio 11.6 (10-20) Glucose 101 H (70-99(Fasting)) mg/dl POC Glucose 102 H 132 H (70-99) mg/dl Calcium 8.2 L (8.5-10.1) mg/dl 11/22/21 11/22/21 Range/Units 16:09 11:21 Sodium (136-145) mmol/L Potassium (3.5-5.1) mmol/L Chloride (98-107) mmol/L Carbon Dioxide (21-32) mmol/L Anion Gap (3-11) BUN (6-23) mg/dl Creatinine (0.6-1.4) mg/dl Est Cr Clr Drug Dosing ml/min Est GFR ( Amer) ml/min Est GFR (Non-Af Amer) ml/min BUN/Creatinine Ratio (10-20) Glucose (70-99(Fasting)) mg/dl POC Glucose 158 H 201 H (70-99) mg/dl Calcium (8.5-10.1) mg/dl Diagnostic Findings Telemetry reviewed: NSR with HR's in the 60's. No recurrent atrial fibrillation Medications Administered Current Inpatient Medications Acetaminophen (Acetaminophen 325 Mg Tab) 650 mg PO Q4H PRN PRN Reason: Pain or Fever Stop: 12/20/21 01:31 Aspirin (Aspirin 81 Mg Chew) 81 mg PO [facility] Stop: 12/20/21 20:59 Last Admin: 11/22/21 20:28 Dose: 81 mg Documented by: Atorvastatin Calcium (Atorvastatin 10 Mg Tab) [facility] Stop: 12/20/21 08:59 Last Admin: 11/23/21 08:27 Dose: 10 mg Documented by: Clopidogrel Bisulfate (Clopidogrel Bisulfate 75 Mg Tab) 75 mg PO HS [facility] Stop: 12/20/21 20:59 Last Admin: 11/22/21 20:28 Dose: 75 mg Documented by: Dextrose (Dextrose 50% 50 Ml Syringe) 25 - 50 ml IV UD PRN; Protocol PRN Reason: Hypoglycemia Protocol Stop: 12/20/21 01:31 Fluticasone/Vilanterol (Fluticasone/Vilanterol 200/25mcg 14 Puffs/Inhaler) 1 puffs INH DAILY [facility]MINDA Stop: 12/20/21 08:59 Last Admin: 11/23/21 08:27 Dose: 1 puffs Documented by: Gabapentin (Gabapentin 100 Mg Cap) 100 mg PO HS [facility] Stop: 12/20/21 20:59 Last Admin: 11/22/21 20:29 Dose: 100 mg Documented by: Glucagon (Glucagon For Inj 1 Mg Vial) 1 mg SQ UD PRN; Protocol PRN Reason: Hypoglycemia Protocol Stop: 12/20/21 01:31 Glucose (Glucose 10 Tabs/Tube) 4 - 8 tabs PO UD PRN; Protocol PRN Reason: Hypoglycemia Protocol Stop: 12/20/21 01:31 Glucose (Glucose 40% Gel 15 Gm Tube) 15 - 30 gm PO UD PRN; Protocol PRN Reason: Hypoglycemia Protocol Stop: 12/20/21 01:31 Heparin Sodium (Porcine) (Heparin Sod 5,000 Unit/0.5 Ml Vial) 5,000 units SQ Q12 [facility] Stop: 12/20/21 08:59 Last Admin: 11/23/21 08:27 Dose: 5,000 units Documented by: Sodium Chloride (Nss 1000ml) 1,000 mls @ 50 mls/hr IV .Q20H ARMINDA Stop: 12/20/21 07:59 Last Admin: 11/23/21 02:18 Dose: 50 mls/hr Documented by: Insulin Aspart (Insulin Aspart Per Unit) 0 units SC ACHS ARMINDA Stop: 12/20/21 02:29 Last Admin: 11/23/21 08:21 Dose: 2 units Documented by: Insulin Glargine (Insulin Glargine Solostar 100 Units/Ml 3 Ml Pen) 45 units SQ HS [facility] Stop: 12/20/21 02:14 Last Admin: 11/22/21 20:33 Dose: 45 units Documented by: Isosorbide Mononitrate (Isosorbide [place] Extended Rel 60 Mg Tabcr) 60 mg PO QAM [facility] Stop: 12/20/21 08:59 Last Admin: 11/23/21 08:28 Dose: 60 mg Documented by: Lactobacillus Acidophilus (Advanced Probiotic 1250 Mg Capsule) 2 cap PO QPM [facility]MINDA Stop: 12/20/21 20:59 Last Admin: 11/22/21 20:29 Dose: 2 cap Documented by: Metoprolol Tartrate (Metoprolol Tartrate 1 Mg/Ml Vial) 5 mg IV Q5M PRN PRN Reason: Tachycardia Stop: 12/20/21 10:04 Metoprolol Tartrate (Metoprolol Tartrate 50 Mg Tab) 50 mg PO BID [facility]DA Stop: 12/21/21 20:59 Last Admin: 02/18/22 08:28 Dose: 50 mg Documented by: Miscellaneous (Carbohydrates For Hypoglycemia ) 15 - 30 gm PO UD PRN PRN Reason: Hypoglycemia Protocol Stop: 12/20/21 01:31 Miscellaneous (Remove Nitro-Dur Patch) 1 ea N/A DAILY@2100 [facility] Stop: 12/20/21 20:59 Last Admin: 11/22/21 19:40 Dose: Not Given Documented by: Miscellaneous (Remove Nitro-Dur Patch) 1 ea N/A DAILY@2100 [facility] Stop: 12/20/21 20:59 Last Admin: 11/22/21 19:40 Dose: Not Given Documented by: Nitroglycerin (Nitroglycerin 0.4 Mg/Hr Patch) 2 patch TD QAM [facility] Stop: 12/20/21 08:59 Last Admin: 11/21/21 08:37 Dose: 2 patch Documented by: Ondansetron HCl (Ondansetron Inj 2 Mg/Ml 2 Ml Vial) 4 mg IV Q6H PRN PRN Reason: Nausea Stop: 12/20/21 01:31 Raspberry (Raspberry Syrup 5 Ml Udp) 5 ml PO Q6H ARMINDA Stop: 11/30/21 05:59 Last Admin: 11/23/21 05:16 Dose: 5 ml Documented by: Tamsulosin HCl (Tamsulosin Hcl 0.4 Mg Cap) 0.4 mg PO HS [facility] Stop: 12/20/21 20:59 Last Admin: 11/22/21 20:30 Dose: 0.4 mg Documented by: Vancomycin HCl (Vancomycin Hcl 125 Mg/2.5ml Soln) 125 mg PO Q6 [facility] Stop: 12/01/21 11:59 Last Admin: 11/23/21 05:16 Dose: 125 mg Documented by: Vitamin B Complex (Vitamin B Complex Tab) 1 tab PO DAILY ARMINDA Stop: 12/20/21 08:59 Last Admin: 11/23/21 08:28 Dose: 1 tab Documented by:
--- NOTE | 2021-11-23 14:06 | Hospitalist Progress Note ---
Date of Service November 23, 2021 Assessment & Plan (1) Elevated troponin I level: Plan: Disposition: Patient doing well, improved C. difficile infection and elevated troponin reflective of demand ischemia which down trended and patient with no clinical signs or symptoms of ongoing cardiac disease. He is doing well, initially was recommended for SNF/rehab, on PT reassessment today was doing extremely well and ambulated 100 feet relatively independently. Discussed with patient's who was very concerned about 2 steps in the home and a narrow bathroom, and was attempting to set up the house to be a safe environment. Discussed with patient and case management who recommended home health services which will be set up tomorrow, with anticipated discharge tomorrow if patient remains clinically stable. Mild troponin leak peaked 0.48, downtrended No chest pain, chest pressure Suspected demand ischemia in the setting of C. difficile infection EKG on admission was A. fib which converted 2/ TTE EF 50 to 55%, abnormal septal motion consistent with LBBB Cardiology following. Continue metoprolol. Nitro discontinued due to low blood with high risk for bleeding complications, anticoagulation for A. fib deferred. Patient weaned and near his home oxygen requirements today. No difficulty breathing (2) Clostridioides difficile infection: Plan: -C. difficile gene positive, with C. difficile toxin negative -Symptoms are consistent with active C. difficile infection -Treating with vancomycin 4 times daily, clinically improving Recommend 10-day course of antibiotics for CDI, no leukocytosis/no creatinine elevation/not fulminant disease (3) Paroxysmal atrial fibrillation: Plan: - See above, anticoagulation deferred due to bleeding risk (4) CAD (coronary artery disease): Plan: Stable. Continue current medical management (5) Hypertension: Plan: Stable. Continue current medical management (6) Liver cirrhosis: Plan: Liver cirrhosis/hepatic steatosis/ LARA No abnormalities in liver enzymes (7) Type 2 diabetes mellitus with microalbuminuria, with long-term current use of insulin: Plan: Continue Lantus 45 units subcu at bedtime Glucose checks AC/at bedtime SSI ADA diet (8) BPH w urinary obs/LUTS: Plan: CT with enlarged prostate, thickened bladder wall, and mildly distended bladder. Patient notes difficulty with urination Started tamsulosin 0.4 mg at bedtime (9) Hypomagnesemia: Plan: Corrected (10) Hepatic steatosis: Plan: Aware. No intervention at this time (11) COPD (chronic obstructive pulmonary disease): Plan: Continue routine inhalers. Stable. Home 3 L O2. (12) Hypercholesteremia: Plan: Continue atorvastatin 10 mg daily (13) GERD (gastroesophageal reflux disease): Plan: Continue pantoprazole Plan: PT/OT recommending rehab versus SNF. Patient clinically improving, placement pending Admission and Anticipated Discharge Date Admission Date: November 19, 2021 Subjective Seen at bedside today. Diarrhea has resolved, no bowel movement today. No abdominal pain. He reports he feels well, and is not short of breath. Was on 1.5-3 L of oxygen before coming in, is currently on 4 L with sats greater than 92%. Reports he does feel little bit weak, but not has not been out of bed much. Discussed that physical therapy/Occupational Therapy had recommended rehab versus SNF, and that these were pending, but that he also feels better so they will reevaluate him today. Patient is agreeable to this. Denies chest pain, chest pressure, shortness of breath, difficulty breathing at bedside assessment. Denies dysuria. Denies leg pain, endorses some leg swelling at baseline and is not sure how his legs are doing today. Does not voice other questions or concerns. Afternoon update: Patient seen by physical therapy, ambulated over 100 feet independently and did extremely well, was recommended for discharge home. Discussed with patient and his , his was concerned about 2 stairs in the home and a narrow bathroom in his strength, discussed with case management recommended setting up home health services, likely home able to be set up to be safe tomorrow Review of Systems Review of Systems: All systems reviewed & are unremarkable except as noted in Subjective Physical Exam Physical Exam: General: A&Ox3. NAD. Cooperative. HEENT: Atraumatic, normocephalic. Pulm: Diminished, no overt wheezes/rales, some crackles in the bases today. No increase in work of breathing. No respiratory distress. Cardiac: RRR, -mrg. Radial pulses intact and symmetrical. Abdominal: Nontender, nondistended, soft. BS present. Results & Data Results & Data ([facility]) Vital Signs (Past 12 Hours) Vital Signs Temp Pulse Pulse Resp BP Pulse Ox 11/23/21 12:09 36.7 C 62 18 110/57 L 92 11/23/21 07:38 36.6 C 62 20 125/66 95 11/23/21 06:45 59 L 11/23/21 03:17 36.6 C 62 16 125/64 93 PG Care Time/CCT Total # of Minutes Spent Total Time Spent with Patient: Total time spent is greater than 50% in coordination of care (as documented) at patient's floor/unit and/or counseling patient: Coding Level of Care Code 10346 Subseq Hosp Care Lvl 1 Diagnoses Elevated troponin I level R77.8 Clostridioides difficile infection A49.8 Paroxysmal atrial fibrillation I48.0 CAD (coronary artery disease) I25.10 Hypertension I10 Liver cirrhosis K74.60 Type 2 diabetes mellitus with microalbuminuria, with long-term current use of insulin E11.29; R80.9; Z79.4 BPH w urinary obs/LUTS N40.1; N13.8 Hypomagnesemia E83.42 Hepatic steatosis K76.0 COPD (chronic obstructive pulmonary disease) J44.9 Hypercholesteremia E78.00 GERD (gastroesophageal reflux disease) K21.9
--- NOTE | 2021-11-23 15:00 | XRay Report ---
XR chest 1V portable CLINICAL HISTORY: serial exam, hypoxia hx pulm edema TECHNIQUE: Single frontal radiograph of the chest was obtained. Comparison: Comparison is made to chest one view 11/19/2021 FINDINGS: No lines and tubes are seen. Cardiomegaly is noted. The lungs are clear. No evidence of pleural effus ion or pneumothorax. IMPRESSION: No acute chest disease. ACT 112: Negative or not required by law. Electronically signed by: Kem Garcia M.D. 11/23/2021 2:59 PM
--- NOTE | 2021-11-23 16:46 | Cardiology Progress Note ---
Date of Service November 23, 2021 Assessment & Plan Admission and Anticipated Discharge Date Admission Date: November 19, 2021 Supervising Physician Co-Signing Physician Notes Supervising Physician Attestation: I have personally performed a history and physical examination on the patient. I agree with the physician nutrition services assistant's findings and plan as documented with the following additions. Subjective: Patient resting comfortably. Denies chest pain, denies shortness of breath or palpitations. Abdominal discomfort which was presenting complaint trending toward improvement. Exam: Telemetry reveals sinus bradycardia in the 50s Data: Potassium 3.9 Assessment and Plan: Chronic exertional angina Newly recognized paroxysmal atrial fibrillation in the setting of symptomatic colitis -Continue metoprolol tartrate 50 mg twice daily -Continue aspirin, clopidogrel -Outpatient nitroglycerin patch remains on hold, and perhaps will be need to be discontinued at discharge. Gurdeep Armstrong, DO Results & Data ([facility]) Vital Signs (Past 12 Hours) Vital Signs Temp Pulse Pulse Resp BP BP Pulse Ox 11/23/21 16:09 36.7 C 58 L 18 118/63 94 11/23/21 14:20 62 11/23/21 12:09 36.7 C 62 18 110/57 L 92 11/23/21 07:38 36.6 C 62 20 125/66 95 11/23/21 06:45 59 L
[2021-11-23] MEDS: ASPIRIN 81 MG CHEW PO SCH (21:06)
[2021-11-23] MEDS: GABAPENTIN 100 MG CAP PO SCH (21:07)
[2021-11-23] MEDS: CLOPIDOGREL BISULFATE 75 MG TAB PO SCH (21:07)
[2021-11-23] MEDS: ADVANCED PROBIOTIC 1250 MG CAPSULE PO SCH (21:07)
[2021-11-23] MEDS: TAMSULOSIN HCL 0.4 MG CAP PO SCH (21:07)
[2021-11-23] MEDS: INSULIN GLARGINE SOLOSTAR 100 UNITS/ML 3 ML PEN SQ SCH (21:16)
[2021-11-24] MEDS: VANCOMYCIN HCL 125 MG/2.5ML SOLN PO SCH ×3 (00:04→13:19)
[2021-11-24] MEDS: RASPBERRY SYRUP 5 ML UDP PO SCH ×3 (00:04→13:19)
[2021-11-24] MEDS: ATORVASTATIN 10 MG TAB PO SCH (08:10)
[2021-11-24] MEDS: VITAMIN B COMPLEX TAB PO SCH (08:10)
[2021-11-24] MEDS: ISOSORBIDE MONO EXTENDED REL 60 MG TABCR PO SCH (08:10)
[2021-11-24] MEDS: METOPROLOL TARTRATE 50 MG TAB PO SCH (08:11)
[2021-11-24] MEDS: FLUTICASONE/VILANTEROL 200/25MCG 14 PUFFS/INHALER INH SCH (08:11)
[2021-11-24] MEDS: HEPARIN SOD 5,000 UNIT/0.5 ML VIAL SQ SCH (08:46)
[2021-11-24] MEDS: INSULIN ASPART PER UNIT SC SCH ×2 (08:46→13:20)
--- NOTE | 2021-11-25 08:34 | Discharge Summary ---
Date of Service November 24, 2021 Admission HPI Per Admitting Provider The patient is an 81-year-old male with a past medical history including COPD, diabetes mellitus type 2, hypercholesterolemia, hypertension, hematochezia, hyperkalemia, acute on chronic diastolic heart failure, CAD, chronic bundle branch block, pleural effusion, pulmonary nodule, chronic hypercapnic respiratory failure and ambulatory dysfunction. When the patient was seen by home nursing today, they felt he was doing poorly and call was made EMS to take him to the emergency department. He was found to be in A. fib with RVR, that resolved by time of arrival to the ED. He notes no previous episodes of A. fib that he is aware of. Patient reports that he has had significant issues with loose stools, and hasn't urinated until today. He does report lower abdominal pelvic discomfort. Principal Diagnosis C. diff. infection Discharge Exam General: A&Ox3. NAD. Cooperative. HEENT: Atraumatic, normocephalic. Pulm: Diminished, no overt wheezes/rales, some crackles in the bases today. No increase in work of breathing. No respiratory distress. Cardiac: RRR, -mrg. Radial pulses intact and symmetrical. Abdominal: Nontender, nondistended, soft. BS present. Discharge Data Allergies Allergy/AdvReac Type Severity Reaction Status Date / Time amoxicillin Allergy Severe swelling Verified 11/19/21 19:37 of lips and throat, shortness of breath adhesive Allergy Intermediate rash/skin Verified 11/19/21 19:37 irritation Sulfa (Sulfonamide Allergy Intermediate HIVES Verified 11/19/21 19:37 Antibiotics) Consultations 11/19/21 21:19 ED Decision to Admit Stat 11/20/21 07:52 Consult Cardiology Routine Ordered Studies 11/19/21 19:29 CT abd pelvis wo con Stat Diabetes Follow up Diabetes Follow-up Needed for HgbA1c >9% Hospital Course (1) Elevated troponin I level: Disposition: Patient doing well, improved C. difficile infection and elevated troponin reflective of demand ischemia which down trended and patient with no clinical signs or symptoms of ongoing cardiac disease. He is doing well, initially was recommended for SNF/rehab, on PT reassessment today was doing extremely well and ambulated 100 feet relatively independently. Discussed with patient's who was very concerned about 2 steps in the home and a narrow bathroom, and was attempting to set up the house to be a safe environment. Discussed with patient and case management who recommended home health services which will be set up tomorrow, with anticipated discharge tomorrow if patient remains clinically stable. Mild troponin leak peaked 0.48, downtrended No chest pain, chest pressure Suspected demand ischemia in the setting of C. difficile infection EKG on admission was A. fib which converted / TTE EF 50 to 55%, abnormal septal motion consistent with LBBB Cardiology following. Continue metoprolol. Nitro discontinued due to low blood with high risk for bleeding complications, anticoagulation for A. fib deferred. Patient weaned back to his normal oxygen. No difficulty breathing (2) Clostridioides difficile infection: -C. difficile gene positive, with C. difficile toxin negative -Symptoms are consistent with active C. difficile infection -Treating with vancomycin 4 times daily, clinically improving will complete 12-day course of antibiotics for CDI, no leukocytosis/no creatinine elevation/not fulminant disease (3) Paroxysmal atrial fibrillation: - See above, anticoagulation deferred due to bleeding risk metoprolol cut back to 50 mg BID during hospital stay as HR was controlled. Called Rosi and updated her on the phone. They have 100 mg tablets that they can cut in half. Instructions were repeated over the phone. (4) CAD (coronary artery disease): Stable. Continue current medical management (5) Hypertension: Stable. Continue current medical management (6) Liver cirrhosis: Liver cirrhosis/hepatic steatosis/ LARA No abnormalities in liver enzymes (7) Type 2 diabetes mellitus with microalbuminuria, with long-term current use of insulin: Continue Lantus 45 units subcu at bedtime Glucose checks AC/at bedtime SSI ADA diet (8) BPH w urinary obs/LUTS: CT with enlarged prostate, thickened bladder wall, and mildly distended bladder. Patient notes difficulty with urination Started tamsulosin 0.4 mg at bedtime (9) Hypomagnesemia: Corrected (10) Hepatic steatosis: Aware. No intervention at this time (11) COPD (chronic obstructive pulmonary disease): Continue routine inhalers. Stable. Home 3 L O2. (12) Hypercholesteremia: Continue atorvastatin 10 mg daily (13) GERD (gastroesophageal reflux disease): Continue pantoprazole discharge home with home health Total Time Total Time Spent Total Time Spent (In Minutes): 40 Discharge Plan Discharge Items Patient Disposition: Home - Home Health Services Reason For Visit: C DIFF COLITIS, ELEVATED TROPONIN Discharge Diagnosis: c diff colitis, elevated trop Activity: Resume your previous activity Non-emergency contact: Primary Care Provider Call non-emergency contact if: you have any medication questions Follow-up/Referrals: PCP,NO [Physician] - Diet: Carb Consistent or DM2 and Heart Healthy Addtl Attending Provider Instructions: You have been hospitalized for an acute medical problem. During your stay at [facility], we have made an effort to correct the problem that brought you to the hospital while keeping you as comfortable as possible. Medications were used to bring your condition under control and your discharge instructions will include directions for any medications you should take after leaving the hospital. Please make sure you see your Primary Care Provider as part of your follow up plan. At home (Prevent C. Diff spread) wash hands Wash your hands with soap and water every time you use the bathroom and always b efore you eat. Remind relatives and friends taking care of you to do the same. Try to use a separate bathroom if you have diarrhea. If you cant, be sure the bathroom is well cleaned before others use it. Take showers and wash with soap to remove any C. diff germs you could be carrying on your body. How do I kill C. diff germs at home? one part bleach to 9 parts water Finding C. diff germs in the home is not unusual, even when no one in the home has been ill with C. diff. Most healthy adults who come in contact with C. diff in the home wont get sick. Hospitals use special cleaning products to kill C. diff, but you can make a stock sheets cleaner inspector at home. Mix 1 part bleach to 9 parts water. Surfaces Focus on regularly cleaning items that are touched by hands. These include but are not limited to: doorknobs electronics (be careful because bleach can damage many electronics and plastics) refrigerator handles shared cups toilet flushers and toilet seats Laundry If someone in your house has C. diff, wash items they touch before others use them. These include but are not limited to: bed linens towels household linens clothing, especially underwear If these items have visible poop, rinse them well before washing. Then launder in a washer and dryer, using the hottest water that is safe for those items. Use chlorine bleach if the items can be safely washed with it. Consider wearing gloves when handling dirty laundry and always wash your hands with soap and water after, even if you use gloves. Its OK to take clothes to a rice dryer mechanic that were worn by a patient infected w ith C. diff. However, dry cleaning isnt as effective as other methods at killing the spores. Therefore, this option should be used only for clothes that cant be machine-washed. Pending Studies at Discharge: No Stand-Alone Forms: My [facility], Smoking Cessation Medications and DC Order Prescriptions: New tamsulosin 0.4 mg Capsule 0.4 mg PO HS Qty: 30 RF: 0 vancomycin 125 mg capsule 125 mg PO Q6H Qty: 32 RF: 0 metoprolol tartrate 50 mg tablet 50 mg PO BID Qty: 60 RF: 0 Continued gabapentin 100 mg capsule 100 mg PO HS Qty: 90 RF: 3 (DME) pen needle, diabetic [BD Ultra-Fine Short Pen Needle] 31 gauge x 5/16" needle See Rx Instructions .ROUTE .MEDSUPPLY Qty: 50 RF: 5 (DME) lancets [OneTouch Delica Lancets] 30 gauge misc See Dose Instructions .ROUTE .MEDSUPPLY Qty: 300 RF: 3 (DME) Miscellaneous Pulmonary Supply Misc See Rx Instructions .Route Qty: 1 RF: 0 Breo Ellipta 200-25 mcg/dose blister with device 1 inh inhalation DAILY Qty: 28 RF: 3 (DME) blood sugar diagnostic Strip See Dose Instructions .ROUTE .MEDSUPPLY Qty: 300 RF: 2 isosorbide mononitrate 60 mg tablet extended release 24 hr 60 mg PO QAM RF: 0 atorvastatin 10 mg tablet 10 mg PO QAM RF: 0 pantoprazole 40 mg tablet,delayed release (DR/EC) 40 mg PO QAM RF: 0 clopidogrel 75 mg tablet 75 mg PO HS RF: 0 aspirin 81 mg tablet,chewable 81 mg PO HS RF: 0 vitamin B complex Tablet 1 tab PO DAILY RF: 0 Acidophilus Tablet,Chewable 1 tab PO QPM RF: 0 omega 1-miz-qyd-fish oil [Fish Oil] 1,000 mg (120 mg-180 mg) Capsule 1 cap PO DAILY RF: 0 ranolazine 500 mg tablet extended release 12 hr 500 mg PO BID RF: 0 Lantus Solostar U-100 Insulin 100 unit/mL (3 mL) insulin pen 45 unit subcut HS RF: 0 Discontinued Nitro-Dur 0.8 mg/hr patch 24 hour 1 patch TD QAM RF: 0 metoprolol tartrate 100 mg tablet 150 mg PO BID RF: 0 Discharge Orders: Discharge Order (Routine); Ordered 11/24/21 Ordered By: Hugo Hayward Admission Data Admit Date/Time: 11/19/21 22:38 Attending Provider: Hugo Hayward Admit Provider: Nato Garrett Primary Care Provider: Alexia Medina Other Providers: Nato Garrett ; Thanh Hearn ; Gurdeep Armstrong ; Kalyan Villa ; Popeye Morris ; Rodrigo Wing ; Luis Alonso ; Alexia Jauregui ; Teresa Shafer ; Vee Brown. ; Cristian Robertson ; [facility] ; [place],[facility] Other Interventions: Discharge Summary Assessment (RN) Last Done: 11/24/21 16:07 Coding Level of Care Code D/C DAY MANAGEMENT >30 MINS Diagnoses Elevated troponin I level R77.8 Clostridioides difficile infection A49.8 Paroxysmal atrial fibrillation I48.0 CAD (coronary artery disease) I25.10 Hypertension I10 Liver cirrhosis K74.60 Type 2 diabetes mellitus with microalbuminuria, with long-term current use of insulin E11.29; R80.9; Z79.4 BPH w urinary obs/LUTS N40.1; N13.8 Hypomagnesemia E83.42 Hepatic steatosis K76.0 COPD (chronic obstructive pulmonary disease) J44.9 Hypercholesteremia E78.00 GERD (gastroesophageal reflux disease) K21.9 Time Spent (min) 40
== END 2021-11-24 17:43 | disposition home health service (06) | DRG 372 ==
LOC: ED 19:16 → EDINP 22:38 → SUATTDRO 22:38 → 2S 11-20 02:01